=== PATIENT | male | born 1980 | race Caucasian/White ===

== ENCOUNTER 2022-07-15 14:38 | Inpatient (IN) | payer MEDICAID ==
--- NOTE | 2021-07-28 01:00 | NUR ---
PATIENT ASLEEP, NO DISTRESS NOTED
[~2022-07-15] VITALS: Ht 167.6 cm; Wt 70.3 kg
[2022-07-15 14:42] VITALS: BP 174/82
--- NOTE | 2022-07-15 14:51 | NUR ---
42/M WALKED IN C/O HEADACHE AND COUGH X 3DAYS. AFEBRILE AT TRIAGE, AAO4, AMBULATORY, VITALS STABLE. PMH: HTN, DM
--- NOTE | 2022-07-15 14:59 | NUR ---
PT SWABBED AND SENT TO LAB
[2022-07-15] MEDS ORDERED: KETOROLAC 60 MG/2 ML VIAL IM ONE (16:20)
[2022-07-15 16:54] LABS: BASOPHILS # (AUTO) 0.1 K/uL (0.00-0.22); BASOPHILS % (AUTO) 1.3 % (0.0-2.0); EOSINOPHILS # (AUTO) 0.3 K/uL (0-0.4); EOSINOPHILS % (AUTO) 4.8 % (0.0-4.0); HEMOGLOBIN 7.5 g/dL (12.0-18.0); LYMPHOCYTES # (AUTO) 0.8 K/uL (2.0-11.5); LYMPHOCYTES % (AUTO) 13.8 % (20.5-51.1); MEAN CORPUSCULAR HEMOGLOBIN 30 pg (27-31); MEAN CORPUSCULAR HGB CONC 34 g/dL (33-37); MEAN CORPUSCULAR VOLUME 86.3 fL (80-94); MONOCYTES # (AUTO) 0.3 K/uL (0.8-1.0); MONOCYTES % (AUTO) 5.6 % (1.7-9.3); NEUTROPHILS # (AUTO) 4.4 K/uL (1.8-7.7); NEUTROPHILS % (AUTO) 74.5 % (42.2-75.2); PLATELET COUNT (AUTO) 170 K/uL (140-450); RED BLOOD CELL COUNT(AUTO) 2.56 MIL/uL (4.20-6.10); RED CELL DISTRIBUTION WIDTH 14.6 % (11.6-13.7); WHITE BLOOD COUNT (AUTO) 5.9 K/uL (4.8-10.8)
[2022-07-15 17:18] LABS: ALBUMIN 3.7 g/dL (3.4-5.0); CARBON DIOXIDE 18.4 mmol/L (21-32); POTASSIUM 5.4 mmol/L (3.5-5.1); TOTAL BILIRUBIN 0.4 mg/dL (0.0-1.0)
[2022-07-15 17:31] LABS: CREATININE 16.1 mg/dL (0.6-1.3)
[2022-07-15] MEDS ORDERED: INSULIN REGULAR, HUMAN 100 UNIT/ML VIAL IVP ONE (17:45)
[2022-07-15] MEDS ORDERED: LACTATED RINGERS 1,000 ML IV ONE (17:45)
[2022-07-15] MEDS ORDERED: DEXTROSE 50% 50 ML SYR IVP ONE ×2 (17:45→19:59)
[2022-07-15] MEDS ORDERED: CALCIUM GLUC 1 GM/50 mL NS BAG 50 ML IV ONE ×2 (17:45→19:58)
--- NOTE | 2022-07-15 19:29 | NUR ---
PT AMBULATED TO BED, PLACED IN GOWN AND ON APPEALS NURSE
--- NOTE | 2022-07-15 19:29 | NUR ---
PT TO 2
--- NOTE | 2022-07-15 19:38 | NUR ---
Patient resting in bed, A/Ox4, chest rise and fall symmetrical, no c/o pain or s/s of discomfort.
[2022-07-15] MEDS ORDERED: NACL 0.9% 1,000 ML IV ONE (20:55)
--- NOTE | 2022-07-15 21:00 | NUR ---
Patient resting in bed, A/Ox4, chest rise and fall symmetrical, no c/o pain or s/s of discomfort.
[2022-07-15] MEDS ORDERED: PANTOPRAZOLE 40 MG INJ VIAL IVP ONE (21:35)
--- NOTE | 2022-07-15 23:05 | NUR ---
Patient resting in bed, A/Ox4, chest rise and fall symmetrical, no c/o pain or s/s of discomfort.
--- NOTE | 2022-07-16 01:15 | NUR ---
Patient resting in bed, A/Ox4, chest rise and fall symmetrical, no c/o pain or s/s of discomfort.
--- NOTE | 2022-07-16 03:00 | NUR ---
Patient resting in bed, A/Ox4, chest rise and fall symmetrical, no c/o pain or s/s of discomfort.
--- NOTE | 2022-07-16 04:52 | NUR ---
Patient resting in bed, A/Ox4, chest rise and fall symmetrical, no c/o pain or s/s of discomfort.
[2022-07-16] MEDS ORDERED: LOSA100T2 PO (05:31)
--- NOTE | 2022-07-16 06:30 | NUR ---
Patient resting in bed, A/Ox4, chest rise and fall symmetrical, no c/o pain or s/s of discomfort.
--- NOTE | 2022-07-16 07:28 | NUR ---
Change of shift report given to AM shift nurse Vivi RN. AM shift nurse Vivi RN verbalized understanding of report, no further questions.
--- NOTE | 2022-07-16 08:00 | NUR ---
PT IS RESTING ON STRETCH, CONTINUOUS CARDIAC MONITORING. PT. IS AAOX4, CALM AND COOPERATIVE, VERBALLY RESPONSIVE, AND SHOWS NO SIGNS OF ACUTE RESP DISTRESS.
--- NOTE | 2022-07-16 11:01 | NUR ---
PT IS RESTING ON STRETCH, CONTINUOUS CARDIAC MONITORING. PT. IS AAOX4, CALM AND COOPERATIVE, VERBALLY RESPONSIVE, AND SHOWS NO SIGNS OF ACUTE RESP DISTRESS.
--- NOTE | 2022-07-16 13:00 | NUR ---
PT IS EATING LUNCH AT THIS TIME
--- NOTE | 2022-07-16 15:34 | NUR ---
PATIENT HAS BEEN SCREENED AND CATEGORIZED MODERATE NUTRITION RISK. PATIENT WILL BE SEEN WITHIN 3-5 DAYS OF ADMISSION. REVIEWED BY LAURIE BARBOSA RD
--- NOTE | 2022-07-16 16:00 | NUR ---
PT IS RESTING ON STRETCH, CONTINUOUS CARDIAC MONITORING. PT. IS AAOX4, CALM AND COOPERATIVE, VERBALLY RESPONSIVE, AND SHOWS NO SIGNS OF ACUTE RESP DISTRESS.
[2022-07-16] MEDS ORDERED: ONDANSETRON 4 MG/2 ML VIAL IVP PRN (17:40)
[2022-07-16] MEDS ORDERED: NACL 0.9% 1,000 ML IV SCH (17:40)
[2022-07-16] MEDS ORDERED: MORPHINE SULFATE 2 MG/ML SYR IVP PRN (17:40)
--- NOTE | 2022-07-16 18:55 | NUR ---
REPORT GIVEN TO KENIA KINSEY FOR CONTINUITY OF CARE.
[2022-07-16 19:01] LABS: ALBUMIN 2.8 g/dL (3.4-5.0); ANION GAP 19.6 (8-16); CARBON DIOXIDE 17.7 mmol/L (21-32); POTASSIUM 5.3 mmol/L (3.5-5.1); TOTAL BILIRUBIN 0.3 mg/dL (0.0-1.0)
[2022-07-16 19:49] LABS: CREATININE 16.4 mg/dL (0.6-1.3)
--- NOTE | 2022-07-16 20:09 | NUR ---
PATIENT STABLE NOT COMPLAINING OF PAIN VITALS SIGNS IN NORMAL LIMITS DOCTOR INFORMED ABOUT CRITICALS LAB RESULTS CREATINE 16.1 BUN 151 EGFR 4L
--- NOTE | 2022-07-16 21:16 | NUR ---
PATIENT STABLE ALERT ORIENTED ADMITED TO ROOM 126 B REPORT AND ENDORSED OF CARE TO TAHIR AQUINO
--- NOTE | 2022-07-16 21:45 | NUR ---
[facility] C/C VOMITING AND NAUSEA WIT HEADACHE X4 DAYS. WALKED FROM [facility] TO BED.. DENIES DX. ACUTE RENAL FAILURE, HYPER KALEMIA, GI BLEED, N/V HEADACHE. POTASSIUM 5.3, BUN 151, CR 16.4. CHILEAN SPEAKING ONLY. A/OX4 SR. LUNGS CLEAR. VOIDED 250 YELLOW URINE N URINAL. RAC 20 GA. SKIN INTACT. REPORT RECEIVED FROM FRANK ALDRICH RN. CT HEAD NEG, CXR NEG.
[2022-07-16 22:15] VITALS: BP 168/96
[2022-07-17] VITALS (11 sets, daily range): BP systolic 132–182; BP diastolic 76–108
[2022-07-17] MEDS: LORazepam 2 MG/ML VIAL IVP PRN (01:25)
--- NOTE | 2022-07-17 01:25 | NUR ---
ATIVAN 2 MG PER IVP FOR RESTLESSNESS.
--- NOTE | 2022-07-17 02:10 | NUR ---
NS 125ML/H BEGAN AT AT 0000. PT AUDIBLY "WET" LUNG SOUNDS NOW C/O DIFF BREATHING. 02 2L/NC STARTED.SAT FROM 99%RA TO 89%. FLUIDS STOPPED AND MD NOTIFIED. FOR NEW ORDERS.
[2022-07-17] MEDS ORDERED: guaiFENesin 600 MG TABER PO ONE (02:28)
--- NOTE | 2022-07-17 02:28 | NUR ---
MUCINEX ER 600 MG GIVEN AND APRESOLINE 10 MG FOR B/P 180/108 HR 96. SAT 93% NOT HOLDING AND DIPPING TO 89 88%. PT REPOSITIONED UP IN BED AND NASAL CANNULA RE-ALIGNED. HAD SON INTERPRET VIA PHONE TO KEEP CANNULAS ALIGNED AND NOT TWISTED TO THE SIDE OF THE FACE MISSING ENTIRELY THE NASAL PASSAGE. STATED UNDERSTOOD.
[2022-07-17] MEDS: hydrALAZINE 20 MG/ML VIAL IVP PRN (02:56)
[2022-07-17 06:00] LABS: BASOPHILS % (AUTO) 0.3 % (0.0-2.0); EOSINOPHILS % (AUTO) 0.1 % (0.0-4.0); HEMATOCRIT 22.6 % (36-52); HEMOGLOBIN 7.8 g/dL (12.0-18.0); LYMPHOCYTES # (AUTO) 0.3 K/uL (2.0-11.5); LYMPHOCYTES % (AUTO) 2.9 % (20.5-51.1); MEAN CORPUSCULAR HEMOGLOBIN 30 pg (27-31); MEAN CORPUSCULAR HGB CONC 34 g/dL (33-37); MEAN CORPUSCULAR VOLUME 86.4 fL (80-94); MONOCYTES # (AUTO) 0.3 K/uL (0.8-1.0); MONOCYTES % (AUTO) 3.4 % (1.7-9.3); NEUTROPHILS # (AUTO) 9.1 K/uL (1.8-7.7); NEUTROPHILS % (AUTO) 93.3 % (42.2-75.2); PLATELET COUNT (AUTO) 156 K/uL (140-450); RED BLOOD CELL COUNT(AUTO) 2.61 MIL/uL (4.20-6.10); RED CELL DISTRIBUTION WIDTH 14.8 % (11.6-13.7); WHITE BLOOD COUNT (AUTO) 9.7 K/uL (4.8-10.8)
--- NOTE | 2022-07-17 06:20 | NUR ---
SEEN PT WITH O2 SAT OF 81% ON 4L NC NASAL CANNULA, PUT PT ON SIMPLE MASK 10L, SAT WENT UP TO 89-91%, CRACKLES LUNG SOUNDS, PUT ON HIGH FOWLERS POSITION, MESSAGED DR COMBS, AWAITING RESPONSE.
[2022-07-17 06:30] LABS: ANION GAP 21.9 (8-16); CARBON DIOXIDE 14.5 mmol/L (21-32); POTASSIUM 5.4 mmol/L (3.5-5.1)
[2022-07-17] MEDS ORDERED: CLONIDINE HYDROCHLORIDE 0.1 MG TAB PO SCH (06:35)
[2022-07-17] MEDS ORDERED: FUROSEMIDE 40 MG/4 ML VIAL IVP SCH (06:35)
[2022-07-17 06:45] LABS: CREATININE 15.5 mg/dL (0.6-1.3)
--- NOTE | 2022-07-17 07:30 | NUR ---
ENDORSED TO ON-COMING NURSE CHANGE OF CONDITION WITH NOTED RESP DISTRESS NOTED SHORTLY AFTER IV FLUIDS BEGAN. NEW ORDERS OBTAINED TO STOP FLUIDS AND BEGAN PRN MEDS TO CONTROL B/P AND INCREASE VENTILATION. LASIX 40 MG ON BOARD BY CHARGE NURSE BRYANNA AND CLONIDINE FOR HTN. CONT TO MONITOR AND ASSIST ACCORDINGLY.
[2022-07-17] MEDS ORDERED: DEXTROSE 50% 50 ML SYR IVP PRN (08:15)
[2022-07-17] MEDS ORDERED: SODIUM ZIRCONIUM CYCLOSILICATE 10 GM POWD.PACK PO SCH (09:00)
[2022-07-17] MEDS ORDERED: CALCIUM GLUC 1 GM/50 mL NS BAG 50 ML IV SCH (09:00)
[2022-07-17] MEDS ORDERED: SODIUM ZIRCONIUM CYCLOSILICATE 10 GM POWD.PACK PO ONE (09:25)
[2022-07-17] MEDS: hydrALAZINE 10 MG TAB PO SCH ×3 (09:46→17:00)
[2022-07-17] MEDS: amLODIPine 5 MG TAB PO SCH (09:46)
[2022-07-17] MEDS: guaiFENesin 600 MG TABER PO SCH ×2 (09:46→20:46)
--- NOTE | 2022-07-17 10:48 | NUR ---
ON OR ABOUT THIS TIME URBAN PLANNING TEACHER CALLED TO BEDSIDE BY SID/SUSIE TO ASSESS PATIENT; PATIENT PRESENTING WITH INCREASED WOB RR AT 36-40 BPM AUDIBLE COARSE CRACKLES BILATERAL SATURATION 78% ON ROOM AIR ACCORDING TO FOREMENTIONED HEAVY DUTY MECHANIC PATIENT SELF REMOVED ADULT MASK (10LPM) DUE TO BEING CLAUSTROPHOBIC INCREASED FIO2 TO 11 PLM WITH SATURATION ASCENDING TO 85%-87% PATIENT APPROPRIATE FOR HIGH FLOW NASAL CANNULA REPORTED FINDINGS TO JOSE/RN REQUESTED STAT CXR
[2022-07-17] MEDS: BLOOD GLUCOSE MONITORING 1 DEV DEV FS SCH ×3 (10:58→20:45)
[2022-07-17] MEDS: INSULIN LISPRO SLIDING SCALE 100 UNITS/ML VIAL SUBQ PRN (11:07)
--- NOTE | 2022-07-17 11:08 | NUR ---
ON OR ABOUT THIS TIME PLACED ON A VAPOTHERM HIGH FLOW NASAL CANNULA NOTED JOSE/RN NOTIFIED
--- NOTE | 2022-07-17 11:55 | NUR ---
DC PLANNING SEAN ATTEMPTED TO MEET WITH PT AT BEDSIDE TO COMPLETE ASSESSMENT, HOWEVER, PT WAS BEING TRANSFERRED TO ICU, THEREFORE SEAN GATHERED COLLATERAL INFORMATION FROM KAREEM, PT SON. PT RESIDES W/ HIS FAMILY ( , SON, DAUGHTER) IN A GROUND FLOOR APT AT THE ADDRESS LIMITED ON FILE. KAREEM IDENTIFIED HIMSELF, [phone] AND TATIANA MENDOZA, DAUGHTER [phone] PTS EMERGENCY CONTACTS. KAREEM REPORTS THAT PT'S SPEAKS LIMITED RUSSIAN AND PREFERS THAT HE AND OR SISTER ARE EMERGENCY CONTACTS THEY WILL RELAY ALL INFORMATION TO MOM. KAREEM REPORTS PT IS NONCOMPLIANT WITH MEDICATION HE TYPICALLY GET MEDICATION FROM [place], WHEN NEEDED HOWEVER, GOING TO [place] HAS BEEN DIFFICULT. KAREEM REPORTS PT AT BASELINE IS INDEPENDENT AND COMPLETES ALL ADL'S INDEPENDENTLY. PT IS REPORTED TO HAVE HX OF DIABETES THAT IS WELL MANAGED WITH INSULIN. SEAN EXPLAINED TO KAREEM THAT PT HAS BEEN REFERRED TO [facility] FOR PE INSURANCE. KAREEM REPORTS PT IS UNDOCUMENTED AND INQUIRED IF FATHER WILL STILL BE ELIGIBLE. SEAN ANSWERED KAREEM'S QUESTIONS AND REMINDED HIM THAT FOLLOWING UP WITH ALL REQUIREMENTS REQUESTED BY [facility] ARE EXTREMELY IMPORTANT. KAREEM VERBALIZED UNDERSTANDING. DC PLAN IS FOR PT TO RETURN HOME, WITH FAMILY PROVIDING TRANSPORTATION, WHEN MEDICALLY STABLE. Addendum: 07/18/22 at 1302 by Sybil Torres SS Amended: Links added. Addendum: 08/22/22 at 1703 by Sybil Torres SS NOTIFIED BY PT NURSE, FAMILY REQUESTING TO SPEAK TO SW. MET WITH FAMILY AT BEDSIDE AND ACTIVELY LISTENED TO FAMILY'S CONCERNS. SW ENDORSED TO CHARGE NURSE ALL OF FAMILY CONCERNS. NURSE TO NOTIFY PHYSICIAN THAT FAMILY IS REQUESTING CLINICAL UPDATE.
--- NOTE | 2022-07-17 12:11 | NUR ---
TRANSFER TO ICU REPORT AT BEDSIDE WITH CHARGE NURSE
--- NOTE | 2022-07-17 12:15 | NUR ---
RECEIVE PT. FROM TELE IN BED ADM TO ICU 5 PT. LOOK PALE , SOB RT AT BED SIDE, PT IS ON HIGH FLOW. SUN AT BED SIDE.
--- NOTE | 2022-07-17 12:22 | NUR ---
CALLED DR. MARITA JONES AT [facility] TO REVIEW ABG RESULTS AND PATIETN TRANSFER TO ICU KEIRA/EXCHANGE TO RORO HESTER MD PATIENT INFORMATION AND CALL BACK NUMBER GIVEN
--- NOTE | 2022-07-17 12:25 | NUR ---
CALL BACK FROM DR. MARITA JONES REVIEWED ABG RESULTS AND EVENTS (07/17 AT 1048;1148) LEADING TO ICU TRANSFER NO FURTHER RESPIRATORY ORDERS GIVEN PER MD REQUEST TRANSFERRED CALL TO ICU Addendum: 07/17/22 at 1312 by Sorin Parnell RT ALSO REVIEWED STAT CXR IMPRESSION 07/17/2022 1144
[2022-07-17] MEDS ORDERED: SODIUM BICARBONATE 8.4% 150 MEQ in DEXTROSE 5% 1,000 ML IV SCH (13:00)
--- NOTE | 2022-07-17 14:45 | NUR ---
DR COMBS WAS CALL PT [place] HAVE HARD TIME TO BREATH.SHE WILL CALL DR. CONCEPCION THE NEPHRO TO CONSULT.
--- NOTE | 2022-07-17 14:55 | NUR ---
AWARE WILL COME TO INSERT HEMODIALYSIS CATH. CONSRNT OBTAINED.
--- NOTE | 2022-07-17 17:45 | NUR ---
dr. ray inserted hemodialysis cath.
--- NOTE | 2022-07-17 18:10 | NUR ---
dr. ray saw chest x-ray film . it ok to use the hemodialysis cath.
--- NOTE | 2022-07-17 18:45 | NUR ---
[facility] CALLED AND LEAVED MASSAGE,
--- NOTE | 2022-07-17 19:20 | NUR ---
REPORT GIVE TO BRIGITTE AQUINO.
--- NOTE | 2022-07-17 20:00 | NUR ---
RECEIVED PATIENT AWAKE,ALERT AND ORIENTED.AFEBRILE.DENIES ANY PAIN AT THIS TIME.ON HI FLOW 40L 100^% FIO2.LUNG SOUNDS WITH CRACKLES THROUGHOUT.ABDOMEN BENIGN WITH+ BS X4 QUADS.PULSES PRESENT AND PALPBLE WITH EDEMA ON BOTH LOWER EXTREMITIES.WITH IVF OF D5W WITH 150MEQ OF SODIUM BICARB AT 50ML/HR.FOR DIALYSIS TONIGHT.WILL CONTINUE WITH CARE PLAN.
--- NOTE | 2022-07-17 22:30 | NUR ---
HEMODIALYSIS DONE ,2 LITERS OUT.
[2022-07-18] VITALS (20 sets, daily range): BP systolic 132–159; BP diastolic 70–91
[2022-07-18 06:05] LABS: ANION GAP 19.2 (8-16); CARBON DIOXIDE 24.1 mmol/L (21-32); POTASSIUM 4.3 mmol/L (3.5-5.1)
[2022-07-18 06:09] LABS: BASOPHILS % (AUTO) 0.2 % (0.0-2.0); LYMPHOCYTES # (AUTO) 0.3 K/uL (2.0-11.5); LYMPHOCYTES % (AUTO) 3.8 % (20.5-51.1); MEAN CORPUSCULAR HEMOGLOBIN 30 pg (27-31); MEAN CORPUSCULAR HGB CONC 35 g/dL (33-37); MEAN CORPUSCULAR VOLUME 84.7 fL (80-94); MONOCYTES # (AUTO) 0.1 K/uL (0.8-1.0); NEUTROPHILS # (AUTO) 6.5 K/uL (1.8-7.7); PLATELET COUNT (AUTO) 109 K/uL (140-450); RED BLOOD CELL COUNT(AUTO) 2.15 MIL/uL (4.20-6.10); RED CELL DISTRIBUTION WIDTH 14.5 % (11.6-13.7); WHITE BLOOD COUNT (AUTO) 6.9 K/uL (4.8-10.8)
[2022-07-18 06:15] LABS: HEMATOCRIT 18.2 % (36-52); HEMOGLOBIN 6.4 g/dL (12.0-18.0)
[2022-07-18 06:45] LABS: CREATININE 11.6 mg/dL (0.6-1.3)
--- NOTE | 2022-07-18 06:50 | NUR ---
DR COMBS WAS NOTIFIED OF THIS PATIENT'S H/H 6.4 /18.2. AND WITH ORDER TO TRANSFUSE 1 UNIT OF PRBC.
--- NOTE | 2022-07-18 07:00 | NUR ---
ENDORSED TO [facility] SHIFT RN FOR CONTINUITY OF CARE.
--- NOTE | 2022-07-18 07:45 | NUR ---
RECEIVED PT ON HIGH FLOW 40L 100%. PT USING BEDSIDE COMMODE AND PT TACHYPNEIC, SOB. SPO2 77%. SPOKE TO REGARDING PLACING PT ON BIPAP AND BREATHING TX.
--- NOTE | 2022-07-18 07:59 | NUR ---
PT SPO2 NOT INCREASING AND REMAINS TACHYPNEIC. PT PLACED ON BIPAP 12/6, R10 AND FIO2 100%. SPO2 NOW 92%. ON AUSCULTATION PT HAS RALES BILATERALLY. BIPAP PLUGGED INTO A RED OUTLET WITH ALARMS ON AND FUNCTIONING. NURSE AWARE OF PT STATUS.
[2022-07-18] MEDS: ALBUTEROL 0.083% 2.5 MG/3 ML NEBU INH SCH ×3 (08:18→19:12)
[2022-07-18] MEDS ORDERED: EPOETIN ALFA-EPBX 10,000 UNITS/ML VIAL SUBQ SCH (09:00)
[2022-07-18] MEDS: BLOOD GLUCOSE MONITORING 1 DEV DEV FS SCH ×4 (09:06→21:55)
[2022-07-18] MEDS: amLODIPine 5 MG TAB PO SCH (09:17)
[2022-07-18] MEDS: hydrALAZINE 10 MG TAB PO SCH ×3 (09:18→17:16)
--- NOTE | 2022-07-18 10:00 | NUR ---
DIALYSIS NURSE AT BEDSIDE STARTING DIALYSIS ON PT. PT. REMAINS ON BIPAP.
--- NOTE | 2022-07-18 10:35 | NUR ---
BIPAP SETTINGS ADJUSTED DUE TO LARGE VT NEW SETTINGS 10/5 AND FIO2 INCREASED TO 100% AT THIS TIME WHILE PT RECEIVED DIALYSIS DUE TO SPO2 91% ON FIO2 90%. WILL TITRATE POST DIALYSIS.
[2022-07-18] MEDS: guaiFENesin 600 MG TABER PO SCH ×2 (12:19→21:00)
--- NOTE | 2022-07-18 12:45 | NUR ---
DIALYSIS COMPLETED AND 2.5 LITERS TAKEN OFF OF PT. PT. SHOWS NO SIGNS OF ACUTE DISTRESS. PT. IS RESTING COMFORTABLE IN BED WITH BIPAP STILL APPLIED.
--- NOTE | 2022-07-18 14:15 | NUR ---
BLOOD TRANSFUSION STARTED AT THIS TIME AFTER VITALS AND RN VERIFIED CROSSCHECK. WILL REASSESS IN 15 MIN.
[2022-07-18] MEDS: ALBUTEROL 0.083% 2.5 MG/3 ML NEBU INH PRN (14:17)
--- NOTE | 2022-07-18 14:26 | NUR ---
PT BACK ON HIGH FLOW AT THIS TIME,40 L 100% TOLERATING WELL. PRN BREATHING TX ADMINISTERED IMPROVED BREATH SOUNDS POST DIALYSIS.
--- NOTE | 2022-07-18 15:05 | NUR ---
PT PLACED BACK ON BIPAP DUE TO LOW SPO2 ON HIGH FLOW AND SOB. BIPAP SETTINGS 10/5,R10, FIO2 90%. ALARMS ON AND FUNCTIONING. NURSE AWARE.
--- NOTE | 2022-07-18 15:58 | NUR ---
PT IS RESTING IN BED STABLE WITH SON AT THE BEDSIDE. PT. IS CONTINUES TO BE ON BIPAP MACHINE.
--- NOTE | 2022-07-18 16:51 | NUR ---
07/18/22 RD INITIAL ASSESSMENT COMPLETED PLEASE REFER TO NUTRITION ASSESSMENT UNDER CARE ACTIVITY FOR ESTIMATED NUTRITIONAL NEEDS. 1. RECOMMEND CCHO 60 GRAM RENAL DIET 2. MONITOR PO INTAKE, GI, AND LAB VALUES. 3. RD TO FOLLOW-UP 3-5 DAYS, MODERATE RISK REVIEWED BY LAURIE BARBOSA RD
--- NOTE | 2022-07-18 17:15 | NUR ---
BLOOD TRANSFUSION COMPLETED WITH NO SIGNS OF REACTION. PAPERWORK COMPLETED AND PUT IN THE CHART. PT. IS RESTING IN BED, AAOX4, CALM AND COOPERATIVE, AND SHOWS NO SIGNS OF ACUTE RESP DISTRESS. IS AT BEDSIDE
[2022-07-18] MEDS: TAZOBACTAM IV SCH ×2 (17:17→23:54)
[2022-07-18] MEDS: PIPERACILLIN IV SCH ×2 (17:17→23:54)
[2022-07-18] MEDS: DEXTROSE 5% IV SCH ×2 (17:17→23:54)
--- NOTE | 2022-07-18 19:20 | NUR ---
REPORT GIVEN TO KENIA DELGADILLO, FOR CONTINUITY OF CARE.
--- NOTE | 2022-07-18 19:37 | NUR ---
PT REPORT GIVEN TO DIDIER, CHARGE NURSE FOR CONTINUITY OF CARE
--- NOTE | 2022-07-18 19:40 | NUR ---
RECEIVED PT. FROM DAY SHIFT RNLI. PT. WIDE AWAKE, ALERT AND ORIENTED, WITH THE FAMILY AT THE BEDSIDE. BILATERAL LUNGS SOUNDS CRACKLES. PT. BIPAP RATE 10, I-10, E-5, FIO2 80%, O2 SAT 89%. SINUS RHYTHM ON THE MONITOR. IV TO RIGHT AC 18G, NO S/S OF INFILTRATION, CAPPED AND FLUSHED. WITH RIGHT JUGULAR ZAIRA CATHETER. HAD HEMODIALYSIS TODAY IN THE DAY SHIFT WITH 2.5L OUTPUT. HAD A 1 UNIT BLOOD TRANSFUSION TODAY AT 1415 PER MD ORDERED, DUE TO HGB 6.4. ON RENAL DIET, HOWEVER PT.REFUSED TO EAT. REPOSITIONED. PROVIDED SAFE AND QUIET ENVIRONMENT. NO S/S OF PAIN. MAKE ALL NEEDS KNOWN. WILL CONT. TO MONITOR.
--- NOTE | 2022-07-18 21:00 | NUR ---
PT. HAS A SCHEDULE FOR PO MUCINEX ER 600 MG, HOWEVER, NOT GIVEN. PT. ON BIPAP WITH 02 SAT 89% AND WEAK TO SWALLOW AT THIS TIME.
[2022-07-19] VITALS (21 sets, daily range): BP systolic 122–161; BP diastolic 70–95
[2022-07-19] MEDS: ALBUTEROL 0.083% 2.5 MG/3 ML NEBU INH SCH ×4 (01:11→19:11)
--- NOTE | 2022-07-19 01:34 | NUR ---
PT. KAREEM ESPINO JR. CALLED AND I PROVIDED UPDATE. NO FURTHER QUESTIONS ASKED.
--- NOTE | 2022-07-19 04:09 | NUR ---
LAB CAME AND DRAWN BLOOD.
[2022-07-19 05:32] LABS: BASOPHILS % (AUTO) 0.1 % (0.0-2.0); HEMATOCRIT 20.1 % (36-52); LYMPHOCYTES # (AUTO) 0.2 K/uL (2.0-11.5); LYMPHOCYTES % (AUTO) 1.6 % (20.5-51.1); MEAN CORPUSCULAR HEMOGLOBIN 29 pg (27-31); MEAN CORPUSCULAR HGB CONC 34 g/dL (33-37); MONOCYTES # (AUTO) 0.2 K/uL (0.8-1.0); MONOCYTES % (AUTO) 2.5 % (1.7-9.3); NEUTROPHILS % (AUTO) 95.8 % (42.2-75.2); PLATELET COUNT (AUTO) 103 K/uL (140-450); RED BLOOD CELL COUNT(AUTO) 2.36 MIL/uL (4.20-6.10); RED CELL DISTRIBUTION WIDTH 15.3 % (11.6-13.7); WHITE BLOOD COUNT (AUTO) 9.4 K/uL (4.8-10.8)
[2022-07-19 05:51] LABS: HEMOGLOBIN 6.9 g/dL (12.0-18.0)
[2022-07-19 06:01] LABS: ANION GAP 19.1 (8-16); CARBON DIOXIDE 23.4 mmol/L (21-32); POTASSIUM 4.5 mmol/L (3.5-5.1)
[2022-07-19 06:17] LABS: CREATININE 9.1 mg/dL (0.6-1.3)
--- NOTE | 2022-07-19 06:31 | NUR ---
SENT MESSAGE TO DR. COMBS THAT THE HGB 6.9, HCT 20.1, BUN 87, CREATININE 9.1.WILL WAIT FOR HIS ORDERS.WILL ENDORSE TO THE NEXT SHIFT.
--- NOTE | 2022-07-19 06:39 | NUR ---
DR. COMBS ORDERED TO TRANSFUSE 1 PRBC.
[2022-07-19] MEDS: PIPERACILLIN IV SCH (06:50)
[2022-07-19] MEDS: DEXTROSE 5% IV SCH (06:50)
[2022-07-19] MEDS: TAZOBACTAM IV SCH (06:50)
[2022-07-19] MEDS: BLOOD GLUCOSE MONITORING 1 DEV DEV FS SCH ×4 (06:51→20:41)
--- NOTE | 2022-07-19 07:10 | NUR ---
Received pt Icelandic speaking, alert and oriented x3. On bipap 05/30 rate 10 FiO2@75%. Sinus rhythm on monitor. Abd soft with active bowel sounds. Pt continent bowel and bladder. Mayco cath on right IJ intact. Peripheral IV 18 gauge on right forearm intact and saline locked. Safety precautions in place.
--- NOTE | 2022-07-19 07:36 | NUR ---
REPORT GIVEN TO DAY SHIFT KENIA FLORES FOR CONTINUITY OF CARE.
--- NOTE | 2022-07-19 07:45 | NUR ---
Dr. Burgos at bedside examining patient.
--- NOTE | 2022-07-19 07:54 | NUR ---
ROUTINE ABG COMPLETED FOR CURRENT BIPAP SETTINGS
--- NOTE | 2022-07-19 07:58 | NUR ---
RECEIVED ON A [employer] V60 BIPAP (AGILITI #9447) PLUGGED INTO RED OUTLET TOLERATING WELL WITHOUT ADVERSE REACTIONS NOTED TO A MEDIUM FACIAL MASK SECURED WITH HEAD STRAP EQUAL CHEST RISE
--- NOTE | 2022-07-19 07:59 | NUR ---
Dr. Dye at bedside examining patient. Reported BUN and creatinine levels. New order for HD today.
--- NOTE | 2022-07-19 08:05 | NUR ---
REMOVED FROM BIPAP TO MASK FOR BREAKFAST MEAL PLACED ON A VAPOTHERM HIGH FLOW NASAL MASK PLUGGED INTO RED OUTLET TOLERATING WELL MARK/RN AWARE
[2022-07-19] MEDS: hydrALAZINE 10 MG TAB PO SCH ×4 (08:10→18:01)
[2022-07-19] MEDS: ACETAMINOPHEN 325 MG TAB PO PRN ×2 (08:10→15:30)
[2022-07-19] MEDS: amLODIPine 5 MG TAB PO SCH (08:11)
[2022-07-19] MEDS: guaiFENesin 600 MG TABER PO SCH ×2 (08:19→20:47)
--- NOTE | 2022-07-19 09:03 | NUR ---
POST BREAKFAST MEAL WITH DESCENDING SATURATION TO 88%-89%; PLACED BACK ON VAPOTHERM HIGH FLOW NASAL CANNULA NOTED; BOREMATIC OPERATOR TO REASSESS POST HEMODIALYSIS IF PATIENT WILL BE APPROPRIATE FOR HIGH FLOW NASAL CANNULA
--- NOTE | 2022-07-19 10:34 | NUR ---
Pt had small loose black stool. Reported stool color to Dr. Burgos. New order for GI consult.
[2022-07-19] MEDS: PIPERACILLIN/TAZOBACTAM 2.25 GM in DEXTROSE 5% 50 ML IV SCH ×2 (11:07→18:01)
[2022-07-19] MEDS: INSULIN LISPRO SLIDING SCALE 100 UNITS/ML VIAL SUBQ PRN (11:16)
--- NOTE | 2022-07-19 11:45 | NUR ---
STABLE GOOD CHEST RISE; CHANGED BIPAP AGILITI #1645 (RENTAL) TO IN HOUSE BIPAP NOTED
[2022-07-19] MEDS ORDERED: PIPERACILLIN/TAZOBACTAM 2.25 GM in DEXTROSE 5% 50 ML IV SCH (12:00)
--- NOTE | 2022-07-19 12:11 | NUR ---
Hemodialysis done at bedside. Pt currently on high flow nasal cannula 40L FiO2@100% and eating lunch.
--- NOTE | 2022-07-19 12:50 | NUR ---
Dr. Watters at bedside examining patient. New order received for CXR.
--- NOTE | 2022-07-19 13:00 | NUR ---
Blood transfusion double verified and started infusing. VSS. Addendum: 07/19/22 at 1840 by Sera Grenefield RN Time 1250. Blood infusing via hemodialysis.
--- NOTE | 2022-07-19 13:30 | NUR ---
Dr. Tapia called and spoke with patient regarding EGD for tomorrow morning. New orders received. Pt to be NPO at midnight.
--- NOTE | 2022-07-19 13:45 | NUR ---
Blood transfusion completed. No adverse reactions noted.
--- NOTE | 2022-07-19 13:54 | NUR ---
HEMODIALYSIS IN PROGRESS; STABLE ON HIGH FLOW NASAL CANNULA AT THIS TIME
--- NOTE | 2022-07-19 14:16 | NUR ---
DC PLANNING: PER DR CARLENE WEEMS OUTSOLE TACKER ORDER TO SET UP OUT PATIENT DIALYSIS WITH [facility] FAXED THE PAPERWORK TO [phone]. PER ENVIRONMENTAL SCIENCES PROFESSOR OUT PATIENT DIALYSIS SET UP ON AT 2 PM . CM TO FOLLOW Addendum: 07/21/22 at 1441 by Viviana Gaffney RN DC PLANNING: PATIENT IN ON HF O2 40L/NC FIO2 55% . CONTINUE IV ABX VANCOMYCIN AND ZOSYN . CONTINUED HEMODIALYSIS. OUT PATIENT DIALYSIS SET UP WITH [facility] 2PM. DC PLAN TO GO HOME WHEN STABLE CM TO FOLLOW Addendum: 08/01/22 at 1621 by Viviana Gaffney RN DC PLANNING: PATIENT HAS AN ORDER FOR HLOC FOR CARDIOTHORACIC SURGEON FAXED TO RHEA HUMPHREYS, [facility] AND [facility]. CM TO FOLLOW Addendum: 08/04/22 at 1711 by Viviana Gaffney RN DC PLANING: CALLED [facility] [phone] SPOKE WITH GRAY REGARDING THE OUT PATIENT INSERTION OF TUNNEL CATH. FAXED ALL THE PAPERWORK AFTER REVIEWING, GRAY STATED DON'T TAKE PT'S INSURANCE. NOTIFIED DR CANELA. Addendum: 08/18/22 at 1811 by Viviana Gaffney RN DC PLANNING: TUNNEL CATH WAS ARRANGED AT 2PM BY DR HERNANDEZ,PER PRIMARY NURSE DANITA PT'S BP WAS HIGH AND NEPHROLOGY DR VELASQUEZ ORDERED DIALYSIS TO BE DONE AND DR HERNANDEZ UNABLE TO PERFORM THE TUNNEL CATH PROCEDURE AND CANCELED IT. DC PLAN AWAITING FOR TUNNEL CATH TO BE INSERTED. CM TO FOLLOW Addendum: 08/22/22 at 1554 by Viviana Gaffney RN DC PLANNING: S/P TUNNEL CATH PLACEMENT BY IR POSSIBLE DC TOMORROW. CALLED [facility] OUT PATIENT DIALYSIS CHAIR TIME M-W-F AT 2 PM FAXED ALL PAPER WORKER .CM TO FOLLOW
--- NOTE | 2022-07-19 15:31 | NUR ---
Received report from hemodialysis nurse that pt c/o chills. Current oral temp 99.3. No c/o itching, pain, or shortness of breath. Dr. Burgos notified with new order for benadryl. Tylenol administered. Walked blood back to blood bank. Per quality assurance/r&d lab technician, antibody screen is negative. No further orders from Dr. Burgos. Blood disposed in biohazard bin.
--- NOTE | 2022-07-19 15:35 | NUR ---
Hemodialysis completed. 2530ml removed.
--- NOTE | 2022-07-19 18:01 | NUR ---
CXR done at bedside.
[2022-07-19 18:52] LABS: BASOPHILS % (AUTO) 0.3 % (0.0-2.0); EOSINOPHILS # (AUTO) 0.1 K/uL (0-0.4); EOSINOPHILS % (AUTO) 0.6 % (0.0-4.0); HEMATOCRIT 23.4 % (36-52); HEMOGLOBIN 8.2 g/dL (12.0-18.0); LYMPHOCYTES # (AUTO) 0.3 K/uL (2.0-11.5); LYMPHOCYTES % (AUTO) 2.9 % (20.5-51.1); MEAN CORPUSCULAR HEMOGLOBIN 29 pg (27-31); MEAN CORPUSCULAR HGB CONC 35 g/dL (33-37); MEAN CORPUSCULAR VOLUME 84.2 fL (80-94); MONOCYTES # (AUTO) 0.2 K/uL (0.8-1.0); MONOCYTES % (AUTO) 2.2 % (1.7-9.3); NEUTROPHILS # (AUTO) 8.5 K/uL (1.8-7.7); PLATELET COUNT (AUTO) 100 K/uL (140-450); RED BLOOD CELL COUNT(AUTO) 2.78 MIL/uL (4.20-6.10); RED CELL DISTRIBUTION WIDTH 14.9 % (11.6-13.7); WHITE BLOOD COUNT (AUTO) 9.1 K/uL (4.8-10.8)
--- NOTE | 2022-07-19 19:19 | NUR ---
Endorsed to shift mechanic nurse Kiera for continuity of care and endorsed for NPO at midnight. Occult blood pending for collection.
[2022-07-20] VITALS (17 sets, daily range): BP systolic 105–163; BP diastolic 47–96
[2022-07-20] MEDS: ALBUTEROL 0.083% 2.5 MG/3 ML NEBU INH SCH ×4 (01:22→18:59)
[2022-07-20] MEDS: PIPERACILLIN/TAZOBACTAM 2.25 GM in DEXTROSE 5% 50 ML IV SCH ×5 (05:14→17:17)
[2022-07-20 05:31] LABS: BASOPHILS % (AUTO) 0.2 % (0.0-2.0); EOSINOPHILS % (AUTO) 0.2 % (0.0-4.0); HEMATOCRIT 24.2 % (36-52); HEMOGLOBIN 8.2 g/dL (12.0-18.0); LYMPHOCYTES # (AUTO) 0.2 K/uL (2.0-11.5); LYMPHOCYTES % (AUTO) 1.5 % (20.5-51.1); MEAN CORPUSCULAR HEMOGLOBIN 29 pg (27-31); MEAN CORPUSCULAR HGB CONC 34 g/dL (33-37); MEAN CORPUSCULAR VOLUME 85.2 fL (80-94); MONOCYTES # (AUTO) 0.3 K/uL (0.8-1.0); MONOCYTES % (AUTO) 2.7 % (1.7-9.3); NEUTROPHILS # (AUTO) 11.7 K/uL (1.8-7.7); NEUTROPHILS % (AUTO) 95.4 % (42.2-75.2); PLATELET COUNT (AUTO) 104 K/uL (140-450); RED BLOOD CELL COUNT(AUTO) 2.84 MIL/uL (4.20-6.10); RED CELL DISTRIBUTION WIDTH 15.1 % (11.6-13.7); WHITE BLOOD COUNT (AUTO) 12.3 K/uL (4.8-10.8)
[2022-07-20 06:03] LABS: CARBON DIOXIDE 27.1 mmol/L (21-32); CREATININE 6.4 mg/dL (0.6-1.3); POTASSIUM 4.1 mmol/L (3.5-5.1)
[2022-07-20] MEDS ORDERED: VANCOMYCIN PER PHARMACY MC PRN (06:45)
[2022-07-20] MEDS ORDERED: VANCOMYCIN 1GM/DEXT 5% PREMIX 200 ML IV SCH (06:55)
--- NOTE | 2022-07-20 07:00 | NUR ---
RECEIVED PT ON ST/BIPAP 03/29. RR10,60%. PT SATURATION 100%, RESTING COMFORTABLY, NO DISTRESS NOTED.
[2022-07-20] MEDS: BLOOD GLUCOSE MONITORING 1 DEV DEV FS SCH ×4 (07:18→21:00)
--- NOTE | 2022-07-20 07:27 | NUR ---
Received pt from oxyacetylene cutter nurse Kiera. Pt in bed with eyes closed, easily aroused to name. Breathing even and unlabored on bipap. Settings 10/5 rate 10 FiO2@60%. Sinus rhythm on monitor. Abd soft with no c/o pain. Continent bowel and bladder. Peripheral IV on right forearm 18 gauge intact and patent infusing NS@TKO. Mayco cath on right IJ intact. Pt remains NPO for EGD this AM.
--- NOTE | 2022-07-20 07:50 | NUR ---
Seen and examined by Dr. Burgos. New order received for echo. Reported fever and elevated WBC. Blood culture done at bedside. Cooling measures in place.
[2022-07-20] MEDS ORDERED: VANCOMYCIN 1,000 MG in DEXTROSE 5% 250 ML IV SCH (08:00)
[2022-07-20] MEDS: PANTOPRAZOLE 40 MG INJ VIAL IVP SCH (08:15)
[2022-07-20] MEDS: amLODIPine 5 MG TAB PO SCH (08:20)
[2022-07-20] MEDS: ACETAMINOPHEN 325 MG TAB PO PRN ×2 (08:20→20:50)
[2022-07-20] MEDS: hydrALAZINE 10 MG TAB PO SCH ×3 (08:20→16:20)
--- NOTE | 2022-07-20 08:20 | NUR ---
Dr. Dye at bedside examining patient. No hemodialysis today since patient had HD 3 days straight. For hemodialysis tomorrow. Addendum: 07/20/22 at 1049 by Sera Greenfield RN Reported creatinine level and levels trending down.
[2022-07-20] MEDS: guaiFENesin 600 MG TABER PO SCH ×2 (08:21→20:18)
--- NOTE | 2022-07-20 08:25 | NUR ---
Spoke to Dr. Wells regarding elevated temp and updated pt status. New order for urine culture.
[2022-07-20] MEDS: NIFEdipine 30 MG TABER PO SCH (08:38)
--- NOTE | 2022-07-20 09:25 | NUR ---
PT CURRENTLY ON HFNC. 100%,40L,33 DEGREE. PT SATURATION 100%. NO DISTRESS NOTED. WILL CONTINUE TO MONITOR.
--- NOTE | 2022-07-20 10:29 | NUR ---
Echocardiogram done at bedside.
--- NOTE | 2022-07-20 11:45 | NUR ---
Pt picked up by OR nurse for tunneled hemodialysis permacatheter placement. Placed pt on mobile monitor. VSS. RT at bedside and placed pt on nonrebreathing mask. Belongings given to at bedside.
--- NOTE | 2022-07-20 12:15 | NUR ---
Meds Heparin 5000 units, Xylocaine Mpf 1%, Sensorcaine Mpf, and Versed 5m/ml not given in ICU. Pt in surgery.
[2022-07-20] MEDS ORDERED: PROPOFOL 200 MG/20 ML VIAL IV ONE (12:30)
[2022-07-20] MEDS ORDERED: LIDOCAINE MPF 1% 10 ML ONE (12:33)
[2022-07-20] MEDS ORDERED: BUPIVACAINE MPF 0.25% 10 ML VIAL INJ ONE ×2 (12:33→12:34)
[2022-07-20] MEDS ORDERED: MIDAZOLAM 5 MG/5 ML VIAL ONE (12:41)
--- NOTE | 2022-07-20 13:18 | NUR ---
TREATMENT NOT GIVEN DUE TO PT IN SURGERY.
--- NOTE | 2022-07-20 13:23 | NUR ---
Pt returned from EGD surgery and tunneled HD permacath placement surgery in stable condition. RT called to bedside. Pt on high flow nasal cannula. Addendum: 07/20/22 at 1457 by Sera Greenfield RN 1323: Pt with tunneled HD permacatheter seen on right upper chest.
--- NOTE | 2022-07-20 13:25 | NUR ---
PT RETURNED FROM SURGERY. CURRENTLY ON HFNC 40L,90%,33 DEGREES. PT SATURATION 98%. RR 16. NO DISTRESS NOTED. WILL CONTINUE TO MONITOR.
--- NOTE | 2022-07-20 13:38 | NUR ---
CXR done at bedside.
[2022-07-20 15:06] LABS: HEPATITIS A ANTIBODY IGM Negative (Negative); HEPATITIS B CORE AB TOTAL Negative (Negative); HEPATITIS B SURFACE ANTIBODY Non Reactive (.); HEPATITIS B SURFACE ANTIGEN Negative (Negative)
[2022-07-20] MEDS: INSULIN LISPRO SLIDING SCALE 100 UNITS/ML VIAL SUBQ PRN (16:26)
[2022-07-20] MEDS: LORazepam 2 MG/ML VIAL IVP PRN (17:55)
--- NOTE | 2022-07-20 19:15 | NUR ---
Received report from FEDERICO Zamora CLINICAL INFORMATION SYSTEMS DIRECTOR. Questions answered. Initial Assessment done. Please see Flowsheet.
--- NOTE | 2022-07-20 19:25 | NUR ---
Endorsed to second shift supervisor nurse Margarita for continuity of care.
--- NOTE | 2022-07-20 21:00 | NUR ---
Due medications given. Tolerated well. Will continue monitoring for any possible adverse reactions. BS= 140mg/dl NO Coverage needed.
[2022-07-21] VITALS (19 sets, daily range): BP systolic 107–148; BP diastolic 47–84
[2022-07-21] MEDS: ALBUTEROL 0.083% 2.5 MG/3 ML NEBU INH SCH ×4 (00:37→20:13)
--- NOTE | 2022-07-21 00:43 | NUR ---
SPO2 99%. TITRATED FiO2 FROM 75% TO 65%. PT TOLERATING WELL AT THIS TIME. RN NOTIFIED. WILL CONTINUE TO MONITOR PT.
--- NOTE | 2022-07-21 04:36 | NUR ---
SPO2 98%. TITRATED FiO2 FROM 65% TO 60%. SPO2 94%. PT TOLERATING WELL AT THIS TIME. RN NOTIFIED. WILL CONTINUE TO MONITOR PT.
[2022-07-21 05:31] LABS: BASOPHILS % (AUTO) 0.2 % (0.0-2.0); EOSINOPHILS # (AUTO) 0.2 K/uL (0-0.4); EOSINOPHILS % (AUTO) 1.9 % (0.0-4.0); HEMATOCRIT 24.5 % (36-52); HEMOGLOBIN 8.4 g/dL (12.0-18.0); LYMPHOCYTES # (AUTO) 0.3 K/uL (2.0-11.5); LYMPHOCYTES % (AUTO) 3.3 % (20.5-51.1); MEAN CORPUSCULAR HEMOGLOBIN 29 pg (27-31); MEAN CORPUSCULAR HGB CONC 34 g/dL (33-37); MEAN CORPUSCULAR VOLUME 85.1 fL (80-94); MONOCYTES # (AUTO) 0.3 K/uL (0.8-1.0); MONOCYTES % (AUTO) 3.2 % (1.7-9.3); NEUTROPHILS # (AUTO) 7.7 K/uL (1.8-7.7); NEUTROPHILS % (AUTO) 91.4 % (42.2-75.2); PLATELET COUNT (AUTO) 100 K/uL (140-450); RED BLOOD CELL COUNT(AUTO) 2.88 MIL/uL (4.20-6.10); RED CELL DISTRIBUTION WIDTH 14.8 % (11.6-13.7); WHITE BLOOD COUNT (AUTO) 8.4 K/uL (4.8-10.8)
[2022-07-21] MEDS: PIPERACILLIN/TAZOBACTAM 2.25 GM in DEXTROSE 5% 50 ML IV SCH ×7 (05:48→23:53)
[2022-07-21 05:59] LABS: ANION GAP 21.5 (8-16); CARBON DIOXIDE 24.6 mmol/L (21-32); POTASSIUM 4.1 mmol/L (3.5-5.1)
[2022-07-21 06:18] LABS: CREATININE 7.8 mg/dL (0.6-1.3)
--- NOTE | 2022-07-21 07:00 | NUR ---
RECEIVED PT ON HFNC 40L, 60%, 33 DEGREES. SATURATION WAS 99%. TITRATED FIO2 TO 55%. BREATH SOUNDS WERE COARSE, SLIGHT WHEEZE. PT RESTING COMFORTABLY. WILL CONTINUE TO MONITOR.
--- NOTE | 2022-07-21 07:22 | NUR ---
SBAR REPORT RECEIVED FROM INDU AQUINO, ALL CARES ASSUMED. PT RESTING IN BED WITH EYES OPEN. PT ON HIGH FLOW NASAL CANNULA 40L 55%. BED IN LOW AND LOCKED POSITION. CALL LIGHT WITHIN REACH.
[2022-07-21] MEDS: BLOOD GLUCOSE MONITORING 1 DEV DEV FS SCH ×4 (07:47→22:00)
[2022-07-21] MEDS: guaiFENesin 600 MG TABER PO SCH ×2 (08:04→21:00)
[2022-07-21] MEDS: amLODIPine 5 MG TAB PO SCH (08:05)
[2022-07-21] MEDS: hydrALAZINE 10 MG TAB PO SCH ×3 (08:05→17:34)
[2022-07-21] MEDS: NIFEdipine 30 MG TABER PO SCH (08:05)
[2022-07-21] MEDS: PANTOPRAZOLE 40 MG INJ VIAL IVP SCH (08:05)
[2022-07-21] MEDS: INSULIN LISPRO SLIDING SCALE 100 UNITS/ML VIAL SUBQ PRN ×2 (11:41→22:00)
--- NOTE | 2022-07-21 13:00 | NUR ---
BREATHING TREATMENT NOT GIVEN DUE TO PT RECEIVING DIALYSIS.
--- NOTE | 2022-07-21 15:19 | NUR ---
07/21/22 RD FOLLOW UP COMPLETED PLEASE REFER TO NUTRITION ASSESSMENT UNDER CARE ACTIVITY FOR ESTIMATED NUTRITIONAL NEEDS. 1. RECOMMEND ADDING CCHO 60 GRAM TO RENAL DIET 2. RECOMMEND NEPRO BID FOR LOW PO INTAKE=10% @BREAKFAST, 50% @ LUNCH ON 07/21/2022. 3. MONITOR GI, LAB VALUES, AND PO INTAKE. 4. RD TO FOLLOW-UP 2-3 DAYS, HIGH RISK REVIEWED BY LAURIE BARBOSA RD
[2022-07-21] MEDS ORDERED: VANCOMYCIN 750 MG in DEXTROSE 5% 250 ML IV SCH (18:00)
--- NOTE | 2022-07-21 18:15 | NUR ---
SBAR REPORT GIVEN TO TAIWO AQUINO, ALL CARES ENDORSED.
--- NOTE | 2022-07-21 19:21 | NUR ---
ENDORSEMENT OF PATIENT WAS GIVEN BY NAT AQUINO, PATIENT WAS STABLE DURING SHIFT REPORT. PATIENT WAS ABLE TO ACKNOWLEDGE HIS NAME WHY HE WAS IN THE HOSPITAL AND AO X 4. PATIENT IS A GREEK SPEAKER. PATIENT IS ON A RENAL CCHO DIET WITH FLUID MONITORING. PATIENT IS ON HIGH FLOW 40 LITER SATURATION IS AT 97%. DENIES ANY PAIN OR DISCOMFORT AT THIS TIME. BREATHING WITHOUT DISTRESS. SIDE RAILS UP X 2 SAFETY AND ADJUSTMENT. PATIENT IS ABLE TO USE THE CALL LIGHT WITHOUT INCIDENT. [email or web address]
[2022-07-22] VITALS: BP 92/58
--- NOTE | 2022-07-22 00:15 | NUR ---
NO NOTED S/S OR RESPIRATORY DISTRESS. PATIENT REMAINS CLEAN AND DRY AT THIS TIME. PATIENT WAS COOPERATIVE DURING MIDNIGHT VITAL SIGNS. NURSING REPLACED PATIENT OXYGEN FINGER MONITOR DUE IT WAS NOT REPORTING HIS SATURATION. NURSING USED HER OWN PULSE OX. CALL LIGHT WITH IN REACH. SIDE RAILS UP X 2. [email or web address]
[2022-07-22] MEDS: ALBUTEROL 0.083% 2.5 MG/3 ML NEBU INH SCH ×4 (01:35→19:00)
[2022-07-22 04:00] VITALS: BP 119/67
[2022-07-22] MEDS: ACETAMINOPHEN 325 MG TAB PO PRN ×2 (04:00→15:52)
--- NOTE | 2022-07-22 04:00 | NUR ---
PATIENT WAS RUNNING MILD FEVER AND MINOR PAIN, WAS GIVEN TYLENOL. PATIENT WAS ABLE TO GO BACK TO SLEEP. NURSING GAVE A CUP OF ICE WATER. PATIENT DENIES RESPIRATORY DISTRESS. KEEP CLEAN AND DRY. [email or web address]
--- NOTE | 2022-07-22 05:27 | NUR ---
NO NOTED SIDE EFFECTS FROM MEDICATION NOTED. [email or web address]
[2022-07-22] MEDS: PIPERACILLIN/TAZOBACTAM 2.25 GM in DEXTROSE 5% 50 ML IV SCH ×4 (06:09→23:19)
[2022-07-22] MEDS: BLOOD GLUCOSE MONITORING 1 DEV DEV FS SCH ×4 (06:58→22:00)
[2022-07-22] MEDS: INSULIN LISPRO SLIDING SCALE 100 UNITS/ML VIAL SUBQ PRN ×3 (06:59→22:22)
--- NOTE | 2022-07-22 07:07 | NUR ---
ENDORSED PATIENT TO LALY AQUINO, PATIENT WAS STABLE DURING SHIFT CHANGE. [email or web address] Addendum: 07/22/22 at 0714 by Eli Serna LVN WRONG NURSE. [email or web address]
--- NOTE | 2022-07-22 07:13 | NUR ---
ENDORSED PATIENT TO CHARMAINE RN, PATIENT WAS STABLE DURING SHIFT CHANGE. [email or web address]
--- NOTE | 2022-07-22 07:15 | NUR ---
RECEIVED REPORT FROM PHOTO TECH NURSE FOR CONTINUITY OF CARE. PTS STABLE AT THIS TIME.
[2022-07-22 08:00] VITALS: BP 143/68
[2022-07-22 08:16] LABS: BASOPHILS % (AUTO) 0.4 % (0.0-2.0); EOSINOPHILS # (AUTO) 0.1 K/uL (0-0.4); EOSINOPHILS % (AUTO) 1.2 % (0.0-4.0); HEMATOCRIT 21.4 % (36-52); HEMOGLOBIN 7.2 g/dL (12.0-18.0); LYMPHOCYTES # (AUTO) 0.2 K/uL (2.0-11.5); MEAN CORPUSCULAR HEMOGLOBIN 29 pg (27-31); MEAN CORPUSCULAR HGB CONC 34 g/dL (33-37); MEAN CORPUSCULAR VOLUME 85.3 fL (80-94); MONOCYTES # (AUTO) 0.2 K/uL (0.8-1.0); MONOCYTES % (AUTO) 3.4 % (1.7-9.3); NEUTROPHILS # (AUTO) 5.1 K/uL (1.8-7.7); PLATELET COUNT (AUTO) 81 K/uL (140-450); RED BLOOD CELL COUNT(AUTO) 2.51 MIL/uL (4.20-6.10); RED CELL DISTRIBUTION WIDTH 14.7 % (11.6-13.7); WHITE BLOOD COUNT (AUTO) 5.7 K/uL (4.8-10.8)
[2022-07-22 08:36] LABS: ALBUMIN 2.3 g/dL (3.4-5.0); ANION GAP 16.1 (8-16); CARBON DIOXIDE 24.4 mmol/L (21-32); POTASSIUM 3.5 mmol/L (3.5-5.1); TOTAL BILIRUBIN 0.6 mg/dL (0.0-1.0)
[2022-07-22 08:50] LABS: CREATININE 6.1 mg/dL (0.6-1.3)
[2022-07-22] MEDS: PANTOPRAZOLE 40 MG INJ VIAL IVP SCH (09:00)
[2022-07-22] MEDS: guaiFENesin 600 MG TABER PO SCH ×2 (10:11→22:00)
[2022-07-22] MEDS: hydrALAZINE 10 MG TAB PO SCH ×3 (10:11→17:00)
[2022-07-22] MEDS: amLODIPine 5 MG TAB PO SCH (10:11)
[2022-07-22] MEDS: NIFEdipine 30 MG TABER PO SCH (10:12)
[2022-07-22 12:00] VITALS: BP 122/72
[2022-07-22 16:00] VITALS: BP 114/63
--- NOTE | 2022-07-22 19:00 | NUR ---
PT RECEIVING DIALYSIS, UNABLE TO DO TREATMENT
--- NOTE | 2022-07-22 19:10 | NUR ---
ENDORSED PT TO FISH GRADER NURSE FOR CONTINUITY OF CARE. PT STABLE AT THIS TIME.
--- NOTE | 2022-07-22 19:30 | NUR ---
RECEIVED PT FROM DAY RN FOR CONTINUITY OF CARE. PT AWAKE, ALERT AND ORIENTED X 4, FRISIAN SPEAKING. FAMILY AT BEDSIDE. O2 30L HI FLOW, FI02 50%. SATING AT 100%. NO S.SX OF RESPIRATORY DISTRESS NOTED. DIALYSIS ONGOING. SKIN WARM, DRY AND INTACT. IV ON R FA G18. ALL PRECAUTIONS IN PLACE. CALL LIGHT WITHIN REACH. WILL CONTINUE TO MONITOR.
[2022-07-22 20:00] VITALS: BP 110/65
--- NOTE | 2022-07-22 21:55 | NUR ---
DIALYSIS DONE. 2LITERS OUT PER DIALYSIS NURSE.WILL CONTINUE TO MONITOR.
--- NOTE | 2022-07-22 22:00 | NUR ---
SCHEDULED MEDICATION GIVEN.BLOOD SUGAR 195, 2UNITS INSULIN GIVEN. PT TOLERATED WELL. WILL CONTINUE TO MONITOR.
--- NOTE | 2022-07-22 23:30 | NUR ---
SCHEDULED ANTIBIOTICS GIVEN. PT TOLERATED WELL. WILL CONTINUE TO MONITOR.
[2022-07-23] VITALS: BP 119/65
[2022-07-23] MEDS: ALBUTEROL 0.083% 2.5 MG/3 ML NEBU INH SCH ×4 (01:44→19:34)
--- NOTE | 2022-07-23 02:42 | NUR ---
PATIENT IN BED ASLEEP. NO NOTED S/SX OF PAIN.ON HI FLOW 30L, 50% FIO2.O2 SAT AT 100%. NO NOTED S/SX OF RESPIRATORY DISTRESS. ALL PRECAUTIONS IN PLACE. CALL LIGHT WITHIN REACH. WILL CONTINUE TO MONITOR.
[2022-07-23 04:00] VITALS: BP 118/70
[2022-07-23] MEDS: PIPERACILLIN/TAZOBACTAM 2.25 GM in DEXTROSE 5% 50 ML IV SCH ×3 (06:12→17:21)
[2022-07-23] MEDS: BLOOD GLUCOSE MONITORING 1 DEV DEV FS SCH ×4 (06:41→23:00)
[2022-07-23 06:50] LABS: BASOPHILS % (AUTO) 0.6 % (0.0-2.0); EOSINOPHILS # (AUTO) 0.2 K/uL (0-0.4); EOSINOPHILS % (AUTO) 2.5 % (0.0-4.0); HEMATOCRIT 20.9 % (36-52); HEMOGLOBIN 7.1 g/dL (12.0-18.0); LYMPHOCYTES # (AUTO) 0.3 K/uL (2.0-11.5); MEAN CORPUSCULAR HEMOGLOBIN 29 pg (27-31); MEAN CORPUSCULAR HGB CONC 34 g/dL (33-37); MONOCYTES # (AUTO) 0.3 K/uL (0.8-1.0); MONOCYTES % (AUTO) 3.5 % (1.7-9.3); NEUTROPHILS # (AUTO) 6.7 K/uL (1.8-7.7); PLATELET COUNT (AUTO) 89 K/uL (140-450); RED BLOOD CELL COUNT(AUTO) 2.46 MIL/uL (4.20-6.10); RED CELL DISTRIBUTION WIDTH 14.5 % (11.6-13.7); WHITE BLOOD COUNT (AUTO) 7.5 K/uL (4.8-10.8)
--- NOTE | 2022-07-23 07:05 | NUR ---
RECEIVED REPORT FROM ROLL ICER MACHINE NURSE FOR CONTINUITY OF CARE. PTS STABLE AT THIS TIME.
--- NOTE | 2022-07-23 07:19 | NUR ---
PT IS STABLE. NO ACUTE EVENTS THROUGHOUT THE NIGHT.NO S/SX OF DISTRESS AT THIS MOMENT.ALL NEEDS ATTENDED. ALL PRECAUTIONS IN PLACE. CALL LIGHT WITHIN REACH. ENDORSED TO DAY RN.
[2022-07-23] MEDS: ACETAMINOPHEN 325 MG TAB PO PRN (07:39)
[2022-07-23 07:42] LABS: ALBUMIN 2.4 g/dL (3.4-5.0); ANION GAP 20.8 (8-16); CARBON DIOXIDE 21.1 mmol/L (21-32); POTASSIUM 3.9 mmol/L (3.5-5.1); TOTAL BILIRUBIN 0.9 mg/dL (0.0-1.0)
[2022-07-23 08:00] VITALS: BP 128/65
[2022-07-23 08:02] LABS: LYMPHOCYTES % (AUTO) 3.5 % (20.5-51.1); NEUTROPHILS % (AUTO) 89.9 % (42.2-75.2)
--- NOTE | 2022-07-23 08:02 | NUR ---
RECEIVED ON A VAPOTHERM HIGH FLOW NASAL CANNULA PLUGGED WITH COMPRESSOR ON PLUGGED INTO RED OUTLET TOLERATING WELL WITHOU ADVERSE REACTIONS NOTED SPORTS TEAM MANAGER TO MONITOR FOR FIO2 TITRATION
[2022-07-23 08:50] LABS: CREATININE 7.5 mg/dL (0.6-1.3)
[2022-07-23] MEDS: PANTOPRAZOLE 40 MG INJ VIAL IVP SCH (08:57)
[2022-07-23] MEDS: NIFEdipine 30 MG TABER PO SCH (08:57)
[2022-07-23] MEDS: guaiFENesin 600 MG TABER PO SCH ×2 (08:58→22:02)
[2022-07-23] MEDS: amLODIPine 5 MG TAB PO SCH (09:00)
[2022-07-23] MEDS: hydrALAZINE 10 MG TAB PO SCH ×3 (09:00→17:00)
[2022-07-23 12:00] VITALS: BP 104/64
[2022-07-23] MEDS: INSULIN LISPRO SLIDING SCALE 100 UNITS/ML VIAL SUBQ PRN ×2 (12:17→17:19)
--- NOTE | 2022-07-23 13:57 | NUR ---
SATURATION 97% ON FIO2 OF 35% VIA VAPOTHERM HIGH FLOW NASAL CANNULA POST HHN THERAPY TITRATED FIO2 TO 32% CHARMAINE/RN NOTIFIED
--- NOTE | 2022-07-23 16:48 | NUR ---
NO DISTRESS NOTED GOOD CHEST RISE SATURATION 95% ON FIO2 OF 32% VIA VAPOTHERM HIGH FLOW NASAL CANNULA TITRATED FIO2 TO 30% CHARMAINE/RN NOTIFIED
[2022-07-23] MEDS ORDERED: VANCOMYCIN 750 MG in DEXTROSE 5% 250 ML IV SCH (18:00)
--- NOTE | 2022-07-23 19:20 | NUR ---
ENDORSED PT TO ENGRAVING PRESS OPERATOR NURSE TONO FOR CONTINUITY OF CARE. PT IS STABLE.
--- NOTE | 2022-07-23 19:32 | NUR ---
RECEIVED ENDORSEMENT FROM DAY SHIFT NURSE FOR CONTINUITY OF CARE. PT IS AWAKE IN BED, ALERT AND ORIENTED X4, CYMRAES SPEAKING ONLY. NO COMPLAINTS OF PAIN AT THIS TIME. ON HIGH FLOW 30, FIO2 50 WITH NO SIGNS OF ACUTE DISTRESS. RESPIRATIONS EVEN AND UNLABORED. IV SITE LOCATED AT THE RIGHT FOREARM REGION 20 GAUGE, INTACT AND PATENT. SKIN IS INTACT. PATIENT TO RECEIVE DIALYSIS LATER TONIGHT. ALL SAFETY MEASURES IN PLACE. BED IN LOW/LOCKED POSITION, CALL LIGHT WITHIN REACH. WILL CONTINUE TO MAKE FREQUENT ROUNDS
--- NOTE | 2022-07-23 19:37 | NUR ---
07/23/22 RD FOLLOW UP COMPLETED. PLEASE REFER TO NUTRITION ASSESSMENT UNDER CARE ACTIVITY FOR ESTIMATED NUTRITIONAL NEEDS. 1. RECOMMEND ADDING CCHO TO RENAL DIET 2. MONITOR PO INTAKE. 3. RD TO FOLLOW-UP 3-5 DAYS, MODERATE RISK OSMAN BLACKMON, RD
--- NOTE | 2022-07-23 22:47 | NUR ---
PATIENT COMPLETED DIALYSIS 2238. 2 LITERS REMOVED.
[2022-07-24] VITALS: BP 125/53
[2022-07-24] MEDS: ALBUTEROL 0.083% 2.5 MG/3 ML NEBU INH SCH ×4 (00:06→19:46)
--- NOTE | 2022-07-24 01:25 | NUR ---
PATIENT COMPLAINED OF DIFFICULTY BREATHING WHILE SATING AT 88%. RAISED THE PATIENTS HOB AND CONTACTED RT. HI FLOW WAS CHANGED TO 20L, FIO2 28%. NOW SATING AT 92-95%. WILL CONTINUE TO MONITOR.
[2022-07-24] MEDS: ACETAMINOPHEN 325 MG TAB PO PRN ×2 (03:40→15:56)
[2022-07-24] MEDS: BLOOD GLUCOSE MONITORING 1 DEV DEV FS SCH ×4 (07:30→19:59)
--- NOTE | 2022-07-24 07:30 | NUR ---
RECIEVED THE PATIENT FROM BROOMMAKING SUPERVISOR NURSE.PATIENT IS VERBALLY ACTIVE,CAMEROONIAN SPEAKING.VITALS ARE STABLE,ON HIGH FLOW OXYGEN WITH 20 L.HAS RIGHT PERMICATH IN PLACE. ALL SAFETY MEASURES IN PLACE.POC DISCUSSED.WILL CONTINUE TO MONITOR.
[2022-07-24 08:00] VITALS: BP 127/65
[2022-07-24] MEDS: guaiFENesin 600 MG TABER PO SCH ×2 (09:00→20:35)
[2022-07-24] MEDS: amLODIPine 5 MG TAB PO SCH (09:55)
[2022-07-24] MEDS: hydrALAZINE 10 MG TAB PO SCH ×2 (09:55→13:46)
[2022-07-24] MEDS: PANTOPRAZOLE 40 MG INJ VIAL IVP SCH (09:56)
[2022-07-24] MEDS: EPOETIN ALFA-EPBX 10,000 UNITS/ML VIAL IV SCH (10:55)
[2022-07-24] MEDS: INSULIN LISPRO SLIDING SCALE 100 UNITS/ML VIAL SUBQ PRN ×3 (12:14→20:01)
[2022-07-24] MEDS ORDERED: VANCOMYCIN PER PHARMACY MC PRN (15:35)
[2022-07-24 16:00] VITALS: BP 142/70
--- NOTE | 2022-07-24 16:01 | NUR ---
PATIENT HAS FEVER WITH TEMP 103.[address] VAZQUEZ AND DR HOOVER AND MADE THEM AWARE.TAB TYLENOL ADMINISTERED PRN.WILL CONTINUE TO MONITOR.
--- NOTE | 2022-07-24 17:42 | NUR ---
RECKED THE TEMPERATURE,98.3 NOTED.VITALS ARE STABLE.NO OTHER COMPLAINTS AT THIS TIME.
[2022-07-24] MEDS: PIPERACILLIN/TAZOBACTAM 2.25 GM in DEXTROSE 5% 50 ML IV SCH (18:00)
[2022-07-24] MEDS: carvediloL 6.25 MG TAB PO SCH (20:41)
[2022-07-25 00:16] VITALS: BP 131/70
[2022-07-25] MEDS: PIPERACILLIN/TAZOBACTAM 2.25 GM in DEXTROSE 5% 50 ML IV SCH ×5 (00:18→23:09)
[2022-07-25] MEDS: ALBUTEROL 0.083% 2.5 MG/3 ML NEBU INH SCH ×2 (00:29→19:30)
--- NOTE | 2022-07-25 01:15 | NUR ---
PATIENT STABLE NOT COMPLAINING OF PAIN VITALS SIGNS IN NORMAL LIMITS HAS BM STOOL FOR OCCULT BLOOD WAS SEND TO THE LAB
[2022-07-25] MEDS: BLOOD GLUCOSE MONITORING 1 DEV DEV FS SCH ×4 (05:11→20:24)
[2022-07-25] MEDS: INSULIN LISPRO SLIDING SCALE 100 UNITS/ML VIAL SUBQ PRN ×4 (05:16→20:25)
[2022-07-25 05:26] LABS: BASOPHILS # (AUTO) 0.1 K/uL (0.00-0.22); BASOPHILS % (AUTO) 0.5 % (0.0-2.0); EOSINOPHILS # (AUTO) 0.2 K/uL (0-0.4); EOSINOPHILS % (AUTO) 1.5 % (0.0-4.0); HEMATOCRIT 21.1 % (36-52); HEMOGLOBIN 7.1 g/dL (12.0-18.0); LYMPHOCYTES # (AUTO) 0.3 K/uL (2.0-11.5); LYMPHOCYTES % (AUTO) 2.7 % (20.5-51.1); MEAN CORPUSCULAR HEMOGLOBIN 29 pg (27-31); MEAN CORPUSCULAR HGB CONC 34 g/dL (33-37); MEAN CORPUSCULAR VOLUME 84.6 fL (80-94); MONOCYTES # (AUTO) 0.4 K/uL (0.8-1.0); NEUTROPHILS # (AUTO) 11.5 K/uL (1.8-7.7); NEUTROPHILS % (AUTO) 92.3 % (42.2-75.2); PLATELET COUNT (AUTO) 113 K/uL (140-450); RED BLOOD CELL COUNT(AUTO) 2.49 MIL/uL (4.20-6.10); RED CELL DISTRIBUTION WIDTH 14.5 % (11.6-13.7); WHITE BLOOD COUNT (AUTO) 12.5 K/uL (4.8-10.8)
[2022-07-25 06:04] LABS: ANION GAP 20.1 (8-16); CARBON DIOXIDE 21.1 mmol/L (21-32); POTASSIUM 4.2 mmol/L (3.5-5.1)
[2022-07-25 06:15] LABS: CREATININE 7.5 mg/dL (0.6-1.3)
[2022-07-25 06:21] LABS: MAGNESIUM 2.2 mg/dL (1.8-2.4)
[2022-07-25] MEDS: ACETAMINOPHEN 325 MG TAB PO PRN ×3 (06:39→20:24)
[2022-07-25 08:00] VITALS: BP 147/78
--- NOTE | 2022-07-25 08:00 | NUR ---
RECEIVED IN BED ASSESSMENT COMPLETED NO DISTRESS NOTED AT THIS TIME PLAN OF CARE REVIEWED DENIES PAIN AT THIS TIME CALL LIGHT IN REACH WILL CONTINUE TO MONITOR AND ASSESSS
[2022-07-25] MEDS: ECOTRIN 81 MG TABEC PO SCH (09:00)
[2022-07-25] MEDS: guaiFENesin 600 MG TABER PO SCH ×2 (09:00→20:24)
[2022-07-25] MEDS: lisinopriL 20 MG TAB PO SCH (09:00)
[2022-07-25] MEDS: PANTOPRAZOLE 40 MG INJ VIAL IVP SCH (09:00)
[2022-07-25] MEDS: carvediloL 6.25 MG TAB PO SCH ×2 (09:00→20:24)
--- NOTE | 2022-07-25 12:30 | NUR ---
TYLENOL 650MG GIVEN FOR TEMP 100.3 PT DENIES CHILLS AT THIS TIME WILL CONTINUE TO MONITOR AND ASSESS
[2022-07-25] MEDS ORDERED: VANCOMYCIN 750 MG in DEXTROSE 5% 250 ML IV SCH (15:00)
[2022-07-25 16:00] VITALS: BP 170/92
--- NOTE | 2022-07-25 17:43 | NUR ---
BP 170/92 HR 88 TEMP 99.1 PT HAS 6 BLANKETS ON HIM WILL MEDICATE WITH HYDRALAZINE ORDERED WILL GIVE IV ANTIBIOTIC ORDERED WILL NOTIFY MD WILL CONTINUE TO MONITOR AND ASSESS
[2022-07-25] MEDS: hydrALAZINE 20 MG/ML VIAL IVP PRN (17:45)
--- NOTE | 2022-07-25 18:00 | NUR ---
MD CANELA AWARE OF BP AND TEMP WITH CHILLS AND PER SHE WILL ORDER BLOOD CULTURES
--- NOTE | 2022-07-25 19:12 | NUR ---
VANCOMYCIN NOT IN PYXIS CALL PLACED TO PHARMACY NO ANSWER NOC RN TO FOLLOW UP BP 159/81
[2022-07-25] MEDS ORDERED: VANCOMYCIN 1,000 MG VIAL ONE (19:21)
--- NOTE | 2022-07-25 19:21 | NUR ---
VANCO AVAILABLE AND GIVEN
--- NOTE | 2022-07-25 19:25 | NUR ---
RECEIVED PT IN BED, AWAKE,ALERT AND ORIENTED. FAMILY MEMBER AT THE BEDSIDE. DENIES PAIN. DENIES SHORTNESS OF BREATH. SKIN WARM AND DRY TO TOUCH. SAFETY PRECAUTION IN PLACE, CALL LIGHT IN REACH.
--- NOTE | 2022-07-25 20:24 | NUR ---
TEM-100.1, TYLENOL GIVEN ORDERED, STARTED COOLING MEASURES.
[2022-07-26] VITALS: BP 170/92
--- NOTE | 2022-07-26 | NUR ---
PT ASLEEP. PT IS AFEBRILE AT THIS TIME.
[2022-07-26] MEDS: ALBUTEROL 0.083% 2.5 MG/3 ML NEBU INH SCH ×4 (01:17→19:39)
[2022-07-26] MEDS: PIPERACILLIN/TAZOBACTAM 2.25 GM in DEXTROSE 5% 50 ML IV SCH ×4 (05:08→23:51)
[2022-07-26 05:58] LABS: BASOPHILS # (AUTO) 0.1 K/uL (0.00-0.22); BASOPHILS % (AUTO) 0.6 % (0.0-2.0); EOSINOPHILS # (AUTO) 0.1 K/uL (0-0.4); HEMATOCRIT 23.8 % (36-52); HEMOGLOBIN 8.1 g/dL (12.0-18.0); LYMPHOCYTES # (AUTO) 0.4 K/uL (2.0-11.5); LYMPHOCYTES % (AUTO) 3.1 % (20.5-51.1); MEAN CORPUSCULAR HEMOGLOBIN 29 pg (27-31); MEAN CORPUSCULAR HGB CONC 34 g/dL (33-37); MEAN CORPUSCULAR VOLUME 84.8 fL (80-94); MONOCYTES # (AUTO) 0.4 K/uL (0.8-1.0); MONOCYTES % (AUTO) 3.2 % (1.7-9.3); NEUTROPHILS # (AUTO) 12.1 K/uL (1.8-7.7); NEUTROPHILS % (AUTO) 92.1 % (42.2-75.2); PLATELET COUNT (AUTO) 143 K/uL (140-450); RED BLOOD CELL COUNT(AUTO) 2.81 MIL/uL (4.20-6.10); RED CELL DISTRIBUTION WIDTH 14.7 % (11.6-13.7); WHITE BLOOD COUNT (AUTO) 13.2 K/uL (4.8-10.8)
[2022-07-26 06:20] LABS: ANION GAP 19.8 (8-16); CARBON DIOXIDE 20.9 mmol/L (21-32); POTASSIUM 4.7 mmol/L (3.5-5.1)
--- NOTE | 2022-07-26 06:22 | NUR ---
PATIENT IS ASLEEP. NO DISTRESS NOTED. ALL NEEDS ATTENDED TO. SAFETY PRECAUTIONS IN PLACE, CALL LIGHT IN REACH.
[2022-07-26 06:23] LABS: CREATININE 6.1 mg/dL (0.6-1.3)
[2022-07-26 06:30] LABS: PHOSPHORUS 4.7 mg/dL (2.5-4.9)
[2022-07-26] MEDS: BLOOD GLUCOSE MONITORING 1 DEV DEV FS SCH ×4 (06:30→21:15)
--- NOTE | 2022-07-26 07:15 | NUR ---
RECEIVED REPORT FROM STRAND AND BINDER CONTROLLER NURSE FOR CONTINUITY OF CARE. PTS STABLE AT THIS TIME.
[2022-07-26 08:00] VITALS: BP 159/87
[2022-07-26] MEDS: lisinopriL 20 MG TAB PO SCH (08:58)
[2022-07-26] MEDS: ECOTRIN 81 MG TABEC PO SCH (08:58)
[2022-07-26] MEDS: PANTOPRAZOLE 40 MG INJ VIAL IVP SCH (08:58)
[2022-07-26] MEDS: carvediloL 6.25 MG TAB PO SCH ×2 (08:58→21:12)
[2022-07-26] MEDS: guaiFENesin 600 MG TABER PO SCH ×2 (08:58→21:13)
[2022-07-26] MEDS: EPOETIN ALFA-EPBX 10,000 UNITS/ML VIAL IV SCH (08:58)
[2022-07-26] MEDS: INSULIN LISPRO SLIDING SCALE 100 UNITS/ML VIAL SUBQ PRN ×3 (12:08→21:14)
[2022-07-26 16:00] VITALS: BP 148/78
--- NOTE | 2022-07-26 16:08 | NUR ---
07/26/22 RD FOLLOW UP COMPLETED PLEASE REFER TO NUTRITION ASSESSMENT UNDER CARE ACTIVITY FOR ESTIMATED NUTRITIONAL NEEDS. 1. RECOMMEND ADDING RENAL TO CCHO 60 GRAM DIET. 2. RECOMMEND NEPRO 1X DAY. 3. MONITOR LAB VALUES, GI, AND PO INTAKE. 4. RD TO FOLLOW-UP 3-5 DAYS, MODERATE RISK REVIEWED BY LAURIE BARBOSA RD
--- NOTE | 2022-07-26 19:05 | NUR ---
ENDORSED PT TO BUSINESS INTEGRATION MANAGER NURSE FOR CONTINUITY OF CARE. PT STABLE AT THIS TIME.
--- NOTE | 2022-07-26 19:35 | NUR ---
RECEIVED PT FROM AM NURSE FOR CONTINUITY OF CARE.PT IS STABLE
--- NOTE | 2022-07-27 | NUR ---
PATIENT ASLEEP, NO S/SX OF DISTRESS NOTED
[2022-07-27] MEDS: ALBUTEROL 0.083% 2.5 MG/3 ML NEBU INH SCH ×4 (01:24→19:43)
[2022-07-27] MEDS: ACETAMINOPHEN 325 MG TAB PO PRN ×2 (03:59→20:30)
[2022-07-27 04:00] VITALS: BP 137/70
[2022-07-27] MEDS: PIPERACILLIN/TAZOBACTAM 2.25 GM in DEXTROSE 5% 50 ML IV SCH ×4 (05:29→23:42)
[2022-07-27 05:54] LABS: BASOPHILS # (AUTO) 0.1 K/uL (0.00-0.22); BASOPHILS % (AUTO) 0.7 % (0.0-2.0); EOSINOPHILS # (AUTO) 0.1 K/uL (0-0.4); EOSINOPHILS % (AUTO) 1.2 % (0.0-4.0); HEMATOCRIT 20.8 % (36-52); HEMOGLOBIN 7.1 g/dL (12.0-18.0); LYMPHOCYTES # (AUTO) 0.7 K/uL (2.0-11.5); LYMPHOCYTES % (AUTO) 5.5 % (20.5-51.1); MEAN CORPUSCULAR HEMOGLOBIN 29 pg (27-31); MEAN CORPUSCULAR HGB CONC 34 g/dL (33-37); MEAN CORPUSCULAR VOLUME 84.2 fL (80-94); MONOCYTES # (AUTO) 0.5 K/uL (0.8-1.0); MONOCYTES % (AUTO) 4.1 % (1.7-9.3); NEUTROPHILS # (AUTO) 10.6 K/uL (1.8-7.7); NEUTROPHILS % (AUTO) 88.5 % (42.2-75.2); PLATELET COUNT (AUTO) 155 K/uL (140-450); RED BLOOD CELL COUNT(AUTO) 2.47 MIL/uL (4.20-6.10); RED CELL DISTRIBUTION WIDTH 14.5 % (11.6-13.7); WHITE BLOOD COUNT (AUTO) 11.9 K/uL (4.8-10.8)
[2022-07-27 06:07] LABS: PHOSPHORUS 5.1 mg/dL (2.5-4.9)
[2022-07-27] MEDS: INSULIN LISPRO SLIDING SCALE 100 UNITS/ML VIAL SUBQ PRN ×4 (06:35→20:29)
[2022-07-27] MEDS: BLOOD GLUCOSE MONITORING 1 DEV DEV FS SCH ×4 (06:37→20:29)
[2022-07-27 06:38] LABS: ANION GAP 17.8 (8-16); CARBON DIOXIDE 19.4 mmol/L (21-32); POTASSIUM 5.2 mmol/L (3.5-5.1)
[2022-07-27 06:39] LABS: CREATININE 7.9 mg/dL (0.6-1.3)
--- NOTE | 2022-07-27 07:53 | NUR ---
GOT REPORT FROM THE NIGHT NURSE, PT SLEEPING NO SOB [email or web address]
[2022-07-27 08:00] VITALS: BP 102/60
[2022-07-27] MEDS: PANTOPRAZOLE 40 MG INJ VIAL IVP SCH (09:18)
[2022-07-27] MEDS: ECOTRIN 81 MG TABEC PO SCH (09:19)
[2022-07-27] MEDS: VIT-B COMP/VIT-C/FOLIC ACID 1 TAB PO SCH (09:19)
[2022-07-27] MEDS: lisinopriL 20 MG TAB PO SCH (09:19)
[2022-07-27] MEDS: carvediloL 6.25 MG TAB PO SCH ×2 (09:19→20:27)
[2022-07-27] MEDS: guaiFENesin 600 MG TABER PO SCH ×2 (09:19→20:28)
[2022-07-27 16:51] VITALS: BP 102/60
[2022-07-27] MEDS: hydrALAZINE 20 MG/ML VIAL IVP PRN (17:16)
--- NOTE | 2022-07-27 17:53 | NUR ---
HYDRALAZINE 10MG GIVEN WASTED 10MG FOR HI [id number]
--- NOTE | 2022-07-27 19:30 | NUR ---
RECEIVED PT FROM AM NURSE FOR CONTINUITY OF CARE. PT IS STABLE
[2022-07-28] VITALS: BP 132/76
[2022-07-28] MEDS: ALBUTEROL 0.083% 2.5 MG/3 ML NEBU INH SCH ×4 (01:00→19:00)
[2022-07-28] MEDS: ACETAMINOPHEN 325 MG TAB PO PRN ×5 (04:39→22:02)
[2022-07-28 05:52] LABS: BASOPHILS # (AUTO) 0.1 K/uL (0.00-0.22); BASOPHILS % (AUTO) 0.6 % (0.0-2.0); EOSINOPHILS # (AUTO) 0.1 K/uL (0-0.4); EOSINOPHILS % (AUTO) 0.7 % (0.0-4.0); HEMATOCRIT 20.3 % (36-52); LYMPHOCYTES # (AUTO) 0.5 K/uL (2.0-11.5); LYMPHOCYTES % (AUTO) 4.5 % (20.5-51.1); MEAN CORPUSCULAR HEMOGLOBIN 28 pg (27-31); MEAN CORPUSCULAR HGB CONC 34 g/dL (33-37); MEAN CORPUSCULAR VOLUME 84.1 fL (80-94); MONOCYTES # (AUTO) 0.6 K/uL (0.8-1.0); MONOCYTES % (AUTO) 5.8 % (1.7-9.3); NEUTROPHILS # (AUTO) 9.8 K/uL (1.8-7.7); NEUTROPHILS % (AUTO) 88.4 % (42.2-75.2); PLATELET COUNT (AUTO) 174 K/uL (140-450); RED BLOOD CELL COUNT(AUTO) 2.41 MIL/uL (4.20-6.10); RED CELL DISTRIBUTION WIDTH 14.2 % (11.6-13.7); WHITE BLOOD COUNT (AUTO) 11.1 K/uL (4.8-10.8)
[2022-07-28] MEDS: PIPERACILLIN/TAZOBACTAM 2.25 GM in DEXTROSE 5% 50 ML IV SCH ×3 (05:53→18:20)
[2022-07-28 05:56] LABS: ANION GAP 14.1 (8-16); CARBON DIOXIDE 24.3 mmol/L (21-32); POTASSIUM 4.4 mmol/L (3.5-5.1)
[2022-07-28 05:58] LABS: MAGNESIUM 1.8 mg/dL (1.8-2.4); PHOSPHORUS 4.6 mg/dL (2.5-4.9)
[2022-07-28 06:03] LABS: CREATININE 6.1 mg/dL (0.6-1.3)
[2022-07-28 06:19] LABS: HEMOGLOBIN 6.8 g/dL (12.0-18.0)
[2022-07-28] MEDS: INSULIN LISPRO SLIDING SCALE 100 UNITS/ML VIAL SUBQ PRN ×4 (06:27→20:12)
--- NOTE | 2022-07-28 06:29 | NUR ---
TEXTED MD REGARDING PATIENT'S HEMOGLOBIN OF 6.8 AND HEMATOCRIT 20.3. AWAITING RESPONSE
[2022-07-28] MEDS: BLOOD GLUCOSE MONITORING 1 DEV DEV FS SCH ×4 (06:46→20:13)
--- NOTE | 2022-07-28 07:15 | NUR ---
ENDORSED PT TO AM NURSE FOR CONTINUITY OF CARE. PT IS STABLE
--- NOTE | 2022-07-28 07:31 | NUR ---
GOT REPORT FROM THE NIGHT NURSE, PT SLEEPING , NO SOB [email or web address]
[2022-07-28 08:00] VITALS: BP 135/73
[2022-07-28] MEDS: ECOTRIN 81 MG TABEC PO SCH (08:30)
[2022-07-28] MEDS: VIT-B COMP/VIT-C/FOLIC ACID 1 TAB PO SCH (08:31)
[2022-07-28] MEDS: guaiFENesin 600 MG TABER PO SCH ×2 (08:31→20:03)
[2022-07-28] MEDS: lisinopriL 20 MG TAB PO SCH (08:32)
[2022-07-28] MEDS: carvediloL 6.25 MG TAB PO SCH ×2 (08:32→20:03)
[2022-07-28] MEDS: PANTOPRAZOLE 40 MG INJ VIAL IVP SCH (08:34)
[2022-07-28] MEDS: EPOETIN ALFA-EPBX 10,000 UNITS/ML VIAL IV SCH (09:00)
--- NOTE | 2022-07-28 10:30 | NUR ---
started new iv on left forarm with frieda 22 [email or web address]
--- NOTE | 2022-07-28 10:39 | NUR ---
PT HAD 100.1 TEMP TYLENOL GIVEN ORDERED.[email or web address]
--- NOTE | 2022-07-28 11:37 | NUR ---
PT PUT IN THE TELE MONITOR.[email or web address]
--- NOTE | 2022-07-28 12:00 | NUR ---
PATIENT OUT FROM TELE MONITOR.[email or web address]
[2022-07-28 16:00] VITALS: BP 146/80
--- NOTE | 2022-07-28 16:22 | NUR ---
PT IS GETTING ONE PACK BLOOD WITH DIALYSIS. IN ROOM AIR PT SATURATION 87,02 3LNC PUT ON AND RESPERATORY IN THE WAY TO GIVE HIM TREATMENT.[email or web address]
[2022-07-28] MEDS: hydrALAZINE 20 MG/ML VIAL IVP PRN (17:11)
[2022-07-28] MEDS: ALBUTEROL 0.083% 2.5 MG/3 ML NEBU INH PRN ×3 (17:21→18:18)
[2022-07-28] MEDS ORDERED: LORazepam 2 MG/ML VIAL ONE (17:36)
[2022-07-28] MEDS ORDERED: LORazepam 2 MG/ML VIAL IVP SCH (17:36)
--- NOTE | 2022-07-28 17:41 | NUR ---
PATIENTS VITALS ARE UNSTABLE.BP 194/104,ME 117,95 %SAT,BREATHING LABOURED AT 35 BREATHS PER MINUTE.ADMINISTERED PRN BP MEDS.CONTACTED MD AND ADVISED TO GIVE STAT ATIVAN 1MG.ADMINISTERED ATIVAN 1 MG IV PERORDER .[email or web address]
[2022-07-28] MEDS ORDERED: LABETALOL 20 MG/4 ML VIAL IVP SCH (18:30)
--- NOTE | 2022-07-28 18:35 | NUR ---
PT WAS BREATHING 30-40\MINUTS BP [id number] HR 117 02 95% , RESPIRATORY TREATMENT GIVEN AND O2 5LNC MAINTAINED , DALASIS STOPPED, BP MED IV PUSH DONE TWO TIMES WITH DEFERENT MEDS SEE MED RECORD. GIVEN TYLENOL 2 X IN THE SHIFT FOR TEMP OVER 100, INFECTION SAID TO REMOVE THE DIALYSIS CATHETER. THE LATEST PB IS NOW 170\103 HR IS 119. PT RESTING MONITORING [id number] .
--- NOTE | 2022-07-28 20:00 | NUR ---
RECEIVED PT IN BED AWAKE,ALERT AND ORIENTED. FAMILY MEMBERS AT THE BEDSIDE. DENIES PAIN. DENIES SHORTNESS OF BREATH. SKIN WARM AND DRY TO TOUCH. SAFETY PRECAUTION IN PLACE, CALL LIGHT IN REACH.
[2022-07-28] MEDS: MICAFUNGIN SODIUM 100 MG in NACL 0.9% 100 ML IV SCH (20:03)
--- NOTE | 2022-07-28 22:02 | NUR ---
CURRENT TEMP-100.4 TYLENOL GIVEN, COOLING MEASURES DONE.
[2022-07-29] VITALS: BP 141/81
--- NOTE | 2022-07-29 | NUR ---
CURRENT TEMP IS 99.2. PT DENIES PAIN AT THIS TIME. CALL LIGHT IN REACH.
[2022-07-29] MEDS: ALBUTEROL 0.083% 2.5 MG/3 ML NEBU INH SCH ×4 (01:00→20:05)
--- NOTE | 2022-07-29 04:23 | NUR ---
BREATHING TREATMENT GIVEN BY RT, PT COMPLAINED OF SHORTNESS OF BREATH BUT FEELS BETTER AFTER TREATMENT. PT NOTED TO BE SWEATING, BS CHECKED-188 MG/DL. DENIES PAIN. CALL LIGHT IN REACH.
[2022-07-29 05:24] LABS: BASOPHILS # (AUTO) 0.1 K/uL (0.00-0.22); BASOPHILS % (AUTO) 0.8 % (0.0-2.0); EOSINOPHILS # (AUTO) 0.1 K/uL (0-0.4); EOSINOPHILS % (AUTO) 0.6 % (0.0-4.0); HEMATOCRIT 29.5 % (36-52); HEMOGLOBIN 9.8 g/dL (12.0-18.0); LYMPHOCYTES # (AUTO) 0.4 K/uL (2.0-11.5); LYMPHOCYTES % (AUTO) 2.7 % (20.5-51.1); MEAN CORPUSCULAR HEMOGLOBIN 29 pg (27-31); MEAN CORPUSCULAR HGB CONC 33 g/dL (33-37); MEAN CORPUSCULAR VOLUME 87.6 fL (80-94); MONOCYTES # (AUTO) 0.6 K/uL (0.8-1.0); MONOCYTES % (AUTO) 4.1 % (1.7-9.3); NEUTROPHILS # (AUTO) 12.3 K/uL (1.8-7.7); PLATELET COUNT (AUTO) 250 K/uL (140-450); RED BLOOD CELL COUNT(AUTO) 3.37 MIL/uL (4.20-6.10); RED CELL DISTRIBUTION WIDTH 14.9 % (11.6-13.7); WHITE BLOOD COUNT (AUTO) 13.4 K/uL (4.8-10.8)
[2022-07-29 05:41] LABS: NEUTROPHILS % (AUTO) 91.8 % (42.2-75.2)
--- NOTE | 2022-07-29 06:18 | NUR ---
PATIENT IS AWAKE, WATCHING. DENIES SHORTNESS OF BREATH. ALL NEEDS ATTENDED TO. SAFETY PRECAUTIONS MAINTAINED DURING THE SHIFT, CALL LIGHT REMAINS WITHIN REACH.
[2022-07-29] MEDS: INSULIN LISPRO SLIDING SCALE 100 UNITS/ML VIAL SUBQ PRN ×3 (06:31→21:01)
[2022-07-29] MEDS: BLOOD GLUCOSE MONITORING 1 DEV DEV FS SCH ×4 (06:31→20:54)
[2022-07-29 06:47] LABS: ANION GAP 18.8 (8-16); CARBON DIOXIDE 22.5 mmol/L (21-32); POTASSIUM 4.3 mmol/L (3.5-5.1)
--- NOTE | 2022-07-29 07:12 | NUR ---
receive the patinet from the sound engineer rn in rm 124B with admitting diagnosis of acute kidney injury aox4 algerian speaking on hemodialysis MWF . for hemodialysis today . removal of right tunnel catheter due to fungal infection . will continue to monitor
[2022-07-29 07:21] LABS: CREATININE 5.4 mg/dL (0.6-1.3)
[2022-07-29 08:00] VITALS: BP 163/91
[2022-07-29] MEDS ORDERED: FLUCONAZOLE 100 MG TAB PO SCH (09:00)
[2022-07-29] MEDS: guaiFENesin 600 MG TABER PO SCH ×2 (09:37→20:38)
[2022-07-29] MEDS: PANTOPRAZOLE 40 MG INJ VIAL IVP SCH (09:37)
[2022-07-29] MEDS: ECOTRIN 81 MG TABEC PO SCH (09:37)
[2022-07-29] MEDS: lisinopriL 20 MG TAB PO SCH (09:38)
[2022-07-29] MEDS: carvediloL 6.25 MG TAB PO SCH ×2 (09:38→20:38)
[2022-07-29] MEDS: VIT-B COMP/VIT-C/FOLIC ACID 1 TAB PO SCH (09:38)
[2022-07-29] MEDS: hydrALAZINE 20 MG/ML VIAL IVP PRN (11:30)
--- NOTE | 2022-07-29 11:30 | NUR ---
respiratory therapist dis some blood gas today .started the patinet on bipap
--- NOTE | 2022-07-29 13:30 | NUR ---
made an extra hemodialysis today
[2022-07-29] MEDS: hydrALAZINE 25 MG TAB PO SCH ×2 (14:33→17:08)
--- NOTE | 2022-07-29 15:33 | NUR ---
md ma follow up with tunnel catheter fungal infection of the patient called md ray . replied he will come to see the patient today
[2022-07-29 16:00] VITALS: BP 151/90
[2022-07-29] MEDS ORDERED: oxyCODONE/APAP 5/325 MG 1 TAB TAB PO PRN (16:05)
[2022-07-29] MEDS ORDERED: oxyCODONE/APAP 5/325 MG 1 TAB TAB ONE (16:20)
--- NOTE | 2022-07-29 16:40 | NUR ---
md ray remove the tunnel catheter on the right chest to prevent fungal infection . applied pressure dressing . gave percocet to prevent pain . also gave acetaminophen 650mg for temp of 100.3 . will continue to monitor
[2022-07-29] MEDS: ACETAMINOPHEN 325 MG TAB PO PRN (17:02)
--- NOTE | 2022-07-29 18:36 | NUR ---
will endorse to night monitor rn for continuity of care
--- NOTE | 2022-07-29 19:15 | NUR ---
PATIENT LYING ON THE BED, FAMILY AT BEDSIDE, IV ACCESS SITE ON LEFT FA, PATENT AND INTACT. PATIENT IS AWAKE, ALERT AND ORIENTED, NO SIGNS OF DISTRESS NOTED. CALL LIGHT WITHIN REACH.
[2022-07-29 20:00] VITALS: BP 144/78
--- NOTE | 2022-07-29 20:11 | NUR ---
PT WAS SEEN AND ASSESSED. PT WAS AWAKE AND ALERT IN BED. PT ON 2L NASAL CANNULAR WITH SPO2 OF 93%. NO RESPIRATORY DISTRESS NOTED AT THIS TIME. SCHEDULE HHN TX WAS GIVEN ORDERED AND PT TOLERATED WELL WITHOUT ANY ADVERSE REACTION. WILL CONTINUE TO MONITOR PT.
[2022-07-29] MEDS: MICAFUNGIN SODIUM 100 MG in NACL 0.9% 100 ML IV SCH (20:28)
--- NOTE | 2022-07-29 21:00 | NUR ---
DUE MEDICATIONS GIVEN ORDERED.
--- NOTE | 2022-07-30 00:25 | NUR ---
CHECKED ON PATIENT, PATIENT IS AWAKE, DENIES PAIN, NO SIGNS OF DISTRESS NOTED. CALL LIGHT WITHIN REACH.
[2022-07-30] MEDS: ALBUTEROL 0.083% 2.5 MG/3 ML NEBU INH SCH ×4 (00:32→19:00)
[2022-07-30] MEDS: ACETAMINOPHEN 325 MG TAB PO PRN ×3 (01:35→17:27)
--- NOTE | 2022-07-30 01:35 | NUR ---
PATIENT C/O HEADACHE, GIVEN PRN TYLENOL. WILL CONTINUE TO MONITOR THE PATIENT.
--- NOTE | 2022-07-30 03:00 | NUR ---
PATIENT IS ASLEEP, ON O2 @4 LPM NC, NO SIGNS OF PAIN/DISCOMFORT NOTED, NO SIGNS OF DISTRESS NOTED. CALL LIGHT IS WITHIN REACH.
[2022-07-30] MEDS: BLOOD GLUCOSE MONITORING 1 DEV DEV FS SCH ×4 (06:35→20:25)
[2022-07-30] MEDS: INSULIN LISPRO SLIDING SCALE 100 UNITS/ML VIAL SUBQ PRN ×4 (06:36→20:27)
--- NOTE | 2022-07-30 07:31 | NUR ---
ENDORSED PATIENT TO DAY NURSE FOR CONTINUITY OF CARE. PATIENT IN STABLE CONDITION.
[2022-07-30 08:00] VITALS: BP 171/93
[2022-07-30] MEDS: guaiFENesin 600 MG TABER PO SCH ×2 (09:32→20:26)
[2022-07-30] MEDS: VIT-B COMP/VIT-C/FOLIC ACID 1 TAB PO SCH (09:32)
[2022-07-30] MEDS: ECOTRIN 81 MG TABEC PO SCH (09:32)
[2022-07-30] MEDS: PANTOPRAZOLE 40 MG INJ VIAL IVP SCH (09:33)
[2022-07-30] MEDS: carvediloL 6.25 MG TAB PO SCH ×2 (09:35→20:25)
[2022-07-30] MEDS: lisinopriL 20 MG TAB PO SCH (09:35)
[2022-07-30] MEDS: hydrALAZINE 25 MG TAB PO SCH ×3 (09:36→17:26)
--- NOTE | 2022-07-30 15:07 | NUR ---
2 RD FOLLOW UP COMPLETED.PLEASE REFER TO NUTRITION ASSESSMENT UNDER CARE ACTIVITY FOR ESTIMATED NUTRITIONAL NEEDS. 1. CONTINUE WITH RENAL/CCHO 60 GRAM DIET WITH NEPRO 1X/DAY 2. MONITOR LAB VALUES. 3. RD TO FOLLOW-UP 3-5 DAYS, MODERATE RISK OSMAN BLACKMON RD
[2022-07-30 16:00] VITALS: BP 158/79
--- NOTE | 2022-07-30 19:15 | NUR ---
RECEIVED PATIENT LYING ON THE BED, HOB ELEVATED, ON O2 @4LPM NC, NO DISTRESS NOTED, DENIES PAIN UPON ASSESSMENT. FAMILY AT BEDSIDE. CALL LIGHT WITHIN REACH.
--- NOTE | 2022-07-30 19:15 | NUR ---
PATIENT RESTING IN BED, AAO x4, NO C/O PAIN/DISCOMFORT AT THIS TIME. RESPIRATIONS EVEN AND UL. COOLING MEASURES IN PLACE, LAST TEMP 99.5. ALL NEEDS MET. SAFETY MEASURES IN PLACE, CALL LIGHT IN REACH. PT AT BEDSIDE. ENDORSED TO PM NURSE FOR CONTINUITY OF CARE.
[2022-07-30 20:00] VITALS: BP 168/92
[2022-07-30] MEDS: MICAFUNGIN SODIUM 100 MG in NACL 0.9% 100 ML IV SCH (20:12)
[2022-07-30] MEDS: hydrALAZINE 20 MG/ML VIAL IVP PRN (20:35)
--- NOTE | 2022-07-30 20:35 | NUR ---
SCHEDULED MEDICATIONS GIVEN ORDERED. PATIENT'S BP 168/92, PRN APRESOLINE GIVEN ORDERED.
--- NOTE | 2022-07-30 23:26 | NUR ---
PATIENT INFORMED OF HIS NPO STATUS AFTER MIDNIGHT FOR ADALID PROCEDURE IN THE MORNING. PATIENT VERBALIZED UNDERSTANDING. SIGN PLACED OUTSIDE OF PATIENT'S ROOM.
--- NOTE | 2022-07-30 23:40 | NUR ---
RECEIVED ORDER FROM DR. STRANGE FOR PATIENT, 2MG VERSED AND FENTANYL 100MCG, TO BE GIVEN BY DR. STRANGE BEFORE PROCEDURE. PUT ORDER IN. PER PHARMACIST, FENTANYL NEEDS TO BE VERIFIED PER PHARMACY PROTOCOL.
[2022-07-30] MEDS ORDERED: MIDAZOLAM 2 MG/2 ML VIAL IV ONE (23:50)
[2022-07-31] MEDS ORDERED: FENTANYL C 0.1 MG/HR PATCH TD SCH
[2022-07-31] MEDS ORDERED: MIDAZOLAM 2 MG/2 ML VIAL IV ONE
[2022-07-31] MEDS: ALBUTEROL 0.083% 2.5 MG/3 ML NEBU INH SCH ×4 (01:00→20:45)
[2022-07-31] MEDS: ACETAMINOPHEN 325 MG TAB PO PRN ×2 (01:31→18:52)
--- NOTE | 2022-07-31 01:31 | NUR ---
PATIENT'S TEMP 100.9, PRN TYLENOL GIVEN ORDERED, STARTED COOLING MEASURES.
--- NOTE | 2022-07-31 03:00 | NUR ---
PATIENT'S TEMP IS 99.0
[2022-07-31 04:00] VITALS: BP 162/86
[2022-07-31] MEDS: hydrALAZINE 20 MG/ML VIAL IVP PRN ×2 (05:28→17:16)
[2022-07-31] MEDS: BLOOD GLUCOSE MONITORING 1 DEV DEV FS SCH ×4 (06:36→21:00)
[2022-07-31] MEDS: INSULIN LISPRO SLIDING SCALE 100 UNITS/ML VIAL SUBQ PRN ×4 (06:37→21:24)
--- NOTE | 2022-07-31 07:09 | NUR ---
receive the patient on rm 124 B admitting diagnosis of acute kidney injury , hyponatremia . still npo for transesphageal echocardiogram by md bethea . will continue to monitor
[2022-07-31 07:28] LABS: BASOPHILS # (AUTO) 0.1 K/uL (0.00-0.22); BASOPHILS % (AUTO) 1.3 % (0.0-2.0); EOSINOPHILS % (AUTO) 0.2 % (0.0-4.0); HEMATOCRIT 28.8 % (36-52); HEMOGLOBIN 9.5 g/dL (12.0-18.0); LYMPHOCYTES # (AUTO) 0.5 K/uL (2.0-11.5); LYMPHOCYTES % (AUTO) 4.9 % (20.5-51.1); MEAN CORPUSCULAR HEMOGLOBIN 29 pg (27-31); MEAN CORPUSCULAR HGB CONC 33 g/dL (33-37); MEAN CORPUSCULAR VOLUME 87.5 fL (80-94); MONOCYTES # (AUTO) 0.4 K/uL (0.8-1.0); MONOCYTES % (AUTO) 3.3 % (1.7-9.3); NEUTROPHILS # (AUTO) 10.2 K/uL (1.8-7.7); NEUTROPHILS % (AUTO) 90.3 % (42.2-75.2); PLATELET COUNT (AUTO) 282 K/uL (140-450); RED BLOOD CELL COUNT(AUTO) 3.29 MIL/uL (4.20-6.10); RED CELL DISTRIBUTION WIDTH 15.3 % (11.6-13.7); WHITE BLOOD COUNT (AUTO) 11.3 K/uL (4.8-10.8)
--- NOTE | 2022-07-31 07:34 | NUR ---
ENDORSED PATIENT TO DAY NURSE FOR CONTINUITY CARE. PATIENT IN STABLE CONDITION.
[2022-07-31 07:41] LABS: ANION GAP 20.1 (8-16); CARBON DIOXIDE 22.1 mmol/L (21-32); POTASSIUM 4.2 mmol/L (3.5-5.1)
[2022-07-31 07:51] LABS: CREATININE 6.7 mg/dL (0.6-1.3)
[2022-07-31 08:00] VITALS: BP 106/65
[2022-07-31] MEDS ORDERED: MIDAZOLAM 2 MG/2 ML VIAL IVP SCH (09:00)
[2022-07-31] MEDS ORDERED: fentaNYL citrate 0.05 MG/ML VIAL IVP SCH (09:00)
[2022-07-31] MEDS ORDERED: MIDAZOLAM 5 MG/5 ML VIAL ONE (09:09)
[2022-07-31] MEDS: PANTOPRAZOLE 40 MG INJ VIAL IVP SCH (09:30)
[2022-07-31] MEDS: carvediloL 6.25 MG TAB PO SCH ×2 (09:31→21:10)
[2022-07-31] MEDS: lisinopriL 20 MG TAB PO SCH (09:32)
[2022-07-31] MEDS: guaiFENesin 600 MG TABER PO SCH ×2 (09:32→21:10)
[2022-07-31] MEDS: ECOTRIN 81 MG TABEC PO SCH (09:32)
[2022-07-31] MEDS: hydrALAZINE 25 MG TAB PO SCH ×3 (09:33→17:42)
[2022-07-31] MEDS: VIT-B COMP/VIT-C/FOLIC ACID 1 TAB PO SCH (09:33)
--- NOTE | 2022-07-31 10:31 | NUR ---
transesophageal echocardiogram done md neema winkler . tolerated the procedure . will continue to monitor
--- NOTE | 2022-07-31 11:03 | NUR ---
@ 0937 RT ASSISTED WITH SUCTIONING AND WATCHING VITAL SIGNS WHILE DR STRANGE PREFORMED A ADALID. PT TOLERATED PROCEDURE WELL. PT WAS ON 3L NC SATING 97% WITH HR 98. NURSE, DR,& CASTING PLUG ASSEMBLER AT BEDSIDE.NO DISTRESS NOTED. WILL CONTINUE TO MONITOR PT
[2022-07-31 18:17] VITALS: BP 175/86
--- NOTE | 2022-07-31 18:18 | NUR ---
will endorse to shift superintendent rn for continuity of care
--- NOTE | 2022-07-31 18:46 | NUR ---
patient has a temp of 110.3 . will give tylenol and apply cooling measures
[2022-07-31 20:00] VITALS: BP 153/93
--- NOTE | 2022-07-31 20:45 | NUR ---
PT REFUSED BREATHING TX
[2022-07-31] MEDS: MICAFUNGIN SODIUM 100 MG in NACL 0.9% 100 ML IV SCH (21:16)
[2022-07-31] MEDS ORDERED: MEROPENEM 500 MG in NACL 0.9% 50 ML IV SCH (21:30)
[2022-08-01] MEDS: ALBUTEROL 0.083% 2.5 MG/3 ML NEBU INH SCH ×2 (01:46→20:16)
[2022-08-01 04:00] VITALS: BP 150/87
[2022-08-01] MEDS: ACETAMINOPHEN 325 MG TAB PO PRN (04:29)
[2022-08-01 06:05] LABS: BASOPHILS # (AUTO) 0.1 K/uL (0.00-0.22); BASOPHILS % (AUTO) 0.8 % (0.0-2.0); EOSINOPHILS # (AUTO) 0.1 K/uL (0-0.4); EOSINOPHILS % (AUTO) 0.8 % (0.0-4.0); HEMATOCRIT 27.2 % (36-52); LYMPHOCYTES # (AUTO) 0.6 K/uL (2.0-11.5); LYMPHOCYTES % (AUTO) 5.2 % (20.5-51.1); MEAN CORPUSCULAR HEMOGLOBIN 29 pg (27-31); MEAN CORPUSCULAR HGB CONC 33 g/dL (33-37); MEAN CORPUSCULAR VOLUME 87.3 fL (80-94); MONOCYTES # (AUTO) 0.5 K/uL (0.8-1.0); MONOCYTES % (AUTO) 4.7 % (1.7-9.3); NEUTROPHILS # (AUTO) 10.1 K/uL (1.8-7.7); NEUTROPHILS % (AUTO) 88.5 % (42.2-75.2); PLATELET COUNT (AUTO) 265 K/uL (140-450); RED BLOOD CELL COUNT(AUTO) 3.12 MIL/uL (4.20-6.10); RED CELL DISTRIBUTION WIDTH 15.7 % (11.6-13.7); WHITE BLOOD COUNT (AUTO) 11.4 K/uL (4.8-10.8)
[2022-08-01 06:25] LABS: ANION GAP 20.7 (8-16); CARBON DIOXIDE 23.1 mmol/L (21-32); POTASSIUM 4.8 mmol/L (3.5-5.1)
[2022-08-01] MEDS: BLOOD GLUCOSE MONITORING 1 DEV DEV FS SCH ×4 (06:49→21:00)
--- NOTE | 2022-08-01 07:03 | NUR ---
receive the patient aox4 with admitting diagnosis of hyponatremia . acute kidnye injury . for possible [place] catheter placement today
--- NOTE | 2022-08-01 07:55 | NUR ---
PT REFUSED BREATHING TX. RT TITRATED PT FROM 2L NC TO ROOM AIR PT TOLERATED WELL. HR 93 SPO2 95%. NO RESP DISTRESS. WILL CONTINUE TO MONITOR.
[2022-08-01 08:00] VITALS: BP 163/94
[2022-08-01] MEDS: MEROPENEM 500 MG in NACL 0.9% 50 ML IV SCH ×2 (08:56→22:18)
[2022-08-01] MEDS: PANTOPRAZOLE 40 MG INJ VIAL IVP SCH (08:56)
[2022-08-01] MEDS: ECOTRIN 81 MG TABEC PO SCH (08:57)
[2022-08-01] MEDS: guaiFENesin 600 MG TABER PO SCH ×2 (08:57→20:55)
[2022-08-01] MEDS: lisinopriL 20 MG TAB PO SCH (08:57)
[2022-08-01] MEDS: carvediloL 6.25 MG TAB PO SCH ×2 (08:57→20:55)
[2022-08-01] MEDS: hydrALAZINE 25 MG TAB PO SCH ×3 (08:59→16:19)
[2022-08-01] MEDS: VIT-B COMP/VIT-C/FOLIC ACID 1 TAB PO SCH (09:01)
[2022-08-01 09:07] LABS: CREATININE 7.7 mg/dL (0.6-1.3)
--- NOTE | 2022-08-01 10:30 | NUR ---
md mcmullen internal control analyst prescribe order for hemodialysis
--- NOTE | 2022-08-01 11:31 | NUR ---
oh surgeon place left britney catheter in his elft subclavian . will continue to monitor for bleeding . ready for use
[2022-08-01] MEDS: INSULIN LISPRO SLIDING SCALE 100 UNITS/ML VIAL SUBQ PRN ×3 (13:38→21:03)
--- NOTE | 2022-08-01 14:30 | NUR ---
the hemodialysis nurse started on hemodialysis . output 2.5 . bp was 186/78 . gave hydralize ivp . will continue to monitor
[2022-08-01 16:00] VITALS: BP 189/101
[2022-08-01] MEDS: hydrALAZINE 20 MG/ML VIAL IVP PRN (17:48)
--- NOTE | 2022-08-01 19:06 | NUR ---
will endorse to pharmacy general manager rn for continuity of care . for monitoring for any bleeding on the britney cath on the left subclavian
--- NOTE | 2022-08-01 19:25 | NUR ---
RECEIVED PT FROM MORNING SHIFT NURSE. PT IS LYING ON THE BED WHILE WATCHING TV, WITH ON BED SIDE. PT IS AOX4, BEDREST, DANISH SPEAKING, ABLE TO VERBALIZE NEEDS AND ABLE TO FOLLOW COMMANDS. PT IS ON 4L NC AND ON RENAL DIET. PT HAS BEDSIDE URINAL AND HAS IV ON LEFT FOREARM GAUGE 18 RUNNING WITH NS AT TKO. PT SKIN IS INTACT. PT DENIES PAIN AND NO S/S OF RESPIRATORY DISTRESS. ALL SAFETY MEASURES IMPLEMENTED. BED WHEELS ON LOCK, BED IN LOW POSITION AND CALL LIGHT WITHIN REACH.
--- NOTE | 2022-08-01 19:26 | NUR ---
DAY SHIFT NURSE DIDNT DO THE RE-ASSESSMENT OF BP FOR HYDRALAZINE BUT THE LATEST BP IS 158/89
[2022-08-01] MEDS: MICAFUNGIN SODIUM 100 MG in NACL 0.9% 100 ML IV SCH (20:54)
--- NOTE | 2022-08-01 21:03 | NUR ---
PT BLOOD GLUCOSE IS 169. 2 UNITS HUMALOG INSULIN WAS GIVEN TO PT. ALL SAFETY MEASURES IMPLEMENTED. BED WHEELS ON LOCK, BED IN LOW POSITION AND CALL LIGHT WITHIN REACH.
[2022-08-02] VITALS: BP 158/89
--- NOTE | 2022-08-02 | NUR ---
PT IS SLEEPING. CHEST RISE AND FALL SYMMETRICALLY NOTED. RESPIRATION IS EVEN AND UNLABORED. ALL SAFETY MEASURES IMPLEMENTED. BED IN LOW POSITION, BED WHEELS ON LOCK AND CALL LIGHT WITHIN REACH.
[2022-08-02] MEDS: ALBUTEROL 0.083% 2.5 MG/3 ML NEBU INH SCH ×4 (01:35→19:33)
--- NOTE | 2022-08-02 02:00 | NUR ---
CHECKED THE PT STILL SLEEPING. CHEST RISE AND FALL SYMMETRICALLY NOTED. RESPIRATION IS EVEN AND UNLABORED. ALL SAFETY MEASURES IMPLEMENTED. BED IN LOW POSITION, BED WHEELS ON LOCK AND CALL LIGHT WITHIN REACH.
[2022-08-02] MEDS: hydrALAZINE 20 MG/ML VIAL IVP PRN ×2 (05:08→20:50)
--- NOTE | 2022-08-02 05:08 | NUR ---
PRN HYDRALAZINE WAS GIVEN TO PT DUE BP OF 164/88 WITH PULSE OF 97. ALL SAFETY MEASURES IMPLEMENTED. BED IN LOW POSITION, BED WHEELS ON LOCK AND CALL LIGHT WITHIN REACH.
[2022-08-02 06:02] LABS: ANION GAP 17.5 (8-16); CARBON DIOXIDE 24.6 mmol/L (21-32); POTASSIUM 4.1 mmol/L (3.5-5.1)
[2022-08-02 06:07] LABS: BASOPHILS # (AUTO) 0.1 K/uL (0.00-0.22); BASOPHILS % (AUTO) 0.8 % (0.0-2.0); EOSINOPHILS # (AUTO) 0.1 K/uL (0-0.4); EOSINOPHILS % (AUTO) 0.7 % (0.0-4.0); HEMATOCRIT 23.4 % (36-52); LYMPHOCYTES # (AUTO) 0.7 K/uL (2.0-11.5); LYMPHOCYTES % (AUTO) 6.6 % (20.5-51.1); MEAN CORPUSCULAR HEMOGLOBIN 30 pg (27-31); MEAN CORPUSCULAR HGB CONC 34 g/dL (33-37); MONOCYTES # (AUTO) 0.7 K/uL (0.8-1.0); NEUTROPHILS # (AUTO) 9.3 K/uL (1.8-7.7); NEUTROPHILS % (AUTO) 85.9 % (42.2-75.2); PLATELET COUNT (AUTO) 222 K/uL (140-450); RED BLOOD CELL COUNT(AUTO) 2.69 MIL/uL (4.20-6.10); RED CELL DISTRIBUTION WIDTH 15.6 % (11.6-13.7); WHITE BLOOD COUNT (AUTO) 10.8 K/uL (4.8-10.8)
[2022-08-02] MEDS: INSULIN LISPRO SLIDING SCALE 100 UNITS/ML VIAL SUBQ PRN ×4 (06:32→21:14)
[2022-08-02] MEDS: BLOOD GLUCOSE MONITORING 1 DEV DEV FS SCH ×4 (06:32→21:11)
--- NOTE | 2022-08-02 06:32 | NUR ---
PT BLOOD GLUCOSE IS 160. 2 UNITS INSULIN HUMALOG WAS GIVEN TO PT.
[2022-08-02 07:04] LABS: CREATININE 5.8 mg/dL (0.6-1.3)
--- NOTE | 2022-08-02 07:04 | NUR ---
RECEIVED CALL FROM LAB DUE TO CREATININE OF 5.8, TRENDING DOWN. NO NEED TO REPORT TO .
--- NOTE | 2022-08-02 07:08 | NUR ---
receive the patinet from the handtools repairer rn aox4 admitting diagnosis of acute kidney injury . will continue to monitor
--- NOTE | 2022-08-02 07:26 | NUR ---
PT IS STABLE. ENDORSED PT TO MORNING SHIFT NURSE FOR CONTINUITY OF CARE.
[2022-08-02 08:00] VITALS: BP 161/86
[2022-08-02] MEDS: lisinopriL 20 MG TAB PO SCH (09:01)
[2022-08-02] MEDS: carvediloL 6.25 MG TAB PO SCH ×2 (09:02→20:49)
[2022-08-02] MEDS: guaiFENesin 600 MG TABER PO SCH ×2 (09:02→20:50)
[2022-08-02] MEDS: VIT-B COMP/VIT-C/FOLIC ACID 1 TAB PO SCH (09:02)
[2022-08-02] MEDS: hydrALAZINE 25 MG TAB PO SCH ×3 (09:03→16:58)
[2022-08-02] MEDS: MEROPENEM 500 MG in NACL 0.9% 50 ML IV SCH ×2 (09:03→22:13)
[2022-08-02] MEDS: PANTOPRAZOLE 40 MG INJ VIAL IVP SCH (09:04)
[2022-08-02] MEDS: ECOTRIN 81 MG TABEC PO SCH (09:11)
[2022-08-02 16:00] VITALS: BP 166/89
--- NOTE | 2022-08-02 18:47 | NUR ---
will endorse to operations supervisor 2nd shift rn for continuity of care . for hemodialysis tomorrow
--- NOTE | 2022-08-02 18:49 | NUR ---
possible transfer to tertiary care evaluation for cardio/thoracic surgery evaluation
--- NOTE | 2022-08-02 19:20 | NUR ---
RECEIVED PT FROM MORNING SHIFT NURSE. PT IS LYING ON THE BED WHILE WATCHING TV, WITH ON BED SIDE. PT IS AOX4, BEDREST, GERMAN SPEAKING, ABLE TO VERBALIZE NEEDS AND ABLE TO FOLLOW COMMANDS. PT IS ON ROOM AIR AND ON RENAL DIET. PT HAS BEDSIDE URINAL AND HAS IV ON LEFT FOREARM SALINE LOCK. PT SKIN IS INTACT. PT DENIES PAIN AND NO S/S OF RESPIRATORY DISTRESS. ALL SAFETY MEASURES IMPLEMENTED. BED WHEELS ON LOCK, BED IN LOW POSITION AND CALL LIGHT WITHIN REACH.
[2022-08-02] MEDS: MICAFUNGIN SODIUM 100 MG in NACL 0.9% 100 ML IV SCH (20:49)
--- NOTE | 2022-08-02 20:50 | NUR ---
ALL SCHEDULED AND PRESCRIBED MEDICATION WAS GIVEN TO PT PER MD ORDER. ALL SAFETY MEASURES IMPLEMENTED. BED WHEELS ON LOCK, BED IN LOW POSITION AND CALL LIGHT WITHIN REACH.
--- NOTE | 2022-08-02 21:14 | NUR ---
PT BLOOD GLUCOSE IS 169. HUMALOG INSULIN 2 UNITS WAS GIVEN TO PT.
--- NOTE | 2022-08-02 21:50 | NUR ---
LATEST BP OF IS 156/82 WITH A PULSE OF 88 AFTER GIVING HYDRALAZINE.
[2022-08-03] VITALS: BP 157/84
--- NOTE | 2022-08-03 | NUR ---
PT IS ON SLEEP. CHEST RISE AND FALL SYMMETRICALLY NOTED. RESPIRATION IS EVEN AND UNLABORED. ALL SAFETY MEASURES IMPLEMENTED. BED IN LOW POSITION, BED WHEELS ON LOCKED AND CALL LIGHT WITHIN REACH.
[2022-08-03] MEDS: ALBUTEROL 0.083% 2.5 MG/3 ML NEBU INH SCH ×4 (01:00→19:00)
--- NOTE | 2022-08-03 04:00 | NUR ---
MORNING CARE WAS DONE TO PT. CHANGED GOWN, AND LINENS. ALL SAFETY MEASURES IMPLEMENTED. BED IN LOW POSITION, BED WHEELS ON LOCKED AND CALL LIGHT WITHIN REACH.
[2022-08-03 05:40] LABS: BASOPHILS # (AUTO) 0.1 K/uL (0.00-0.22); BASOPHILS % (AUTO) 0.9 % (0.0-2.0); EOSINOPHILS # (AUTO) 0.1 K/uL (0-0.4); EOSINOPHILS % (AUTO) 1.1 % (0.0-4.0); HEMATOCRIT 25.3 % (36-52); HEMOGLOBIN 8.5 g/dL (12.0-18.0); LYMPHOCYTES # (AUTO) 0.9 K/uL (2.0-11.5); LYMPHOCYTES % (AUTO) 8.6 % (20.5-51.1); MEAN CORPUSCULAR HEMOGLOBIN 29 pg (27-31); MEAN CORPUSCULAR HGB CONC 33 g/dL (33-37); MEAN CORPUSCULAR VOLUME 87.7 fL (80-94); MONOCYTES # (AUTO) 0.6 K/uL (0.8-1.0); MONOCYTES % (AUTO) 6.2 % (1.7-9.3); NEUTROPHILS # (AUTO) 8.6 K/uL (1.8-7.7); NEUTROPHILS % (AUTO) 83.2 % (42.2-75.2); PLATELET COUNT (AUTO) 253 K/uL (140-450); RED BLOOD CELL COUNT(AUTO) 2.89 MIL/uL (4.20-6.10); RED CELL DISTRIBUTION WIDTH 15.7 % (11.6-13.7); WHITE BLOOD COUNT (AUTO) 10.3 K/uL (4.8-10.8)
[2022-08-03 06:27] LABS: ANION GAP 17.9 (8-16); CARBON DIOXIDE 24.5 mmol/L (21-32); POTASSIUM 4.4 mmol/L (3.5-5.1)
--- NOTE | 2022-08-03 06:51 | NUR ---
NOTIFIED DR. CANELA REGARDING PT CRITICAL LAB OF BUN-67 AND CREATININE OF 7.
[2022-08-03] MEDS: BLOOD GLUCOSE MONITORING 1 DEV DEV FS SCH ×4 (06:53→20:50)
--- NOTE | 2022-08-03 06:53 | NUR ---
PT BLOOD GLUCOSE IS 113. NO INSULIN COVERAGE NEEDED.
--- NOTE | 2022-08-03 07:08 | NUR ---
receive the patient from the operations supervisor 2nd shift rn aox2 with admitting diagnosis of acute kidney injury . with schedule of hemodialysis today . will continue to monitor
--- NOTE | 2022-08-03 07:18 | NUR ---
PT IS STABLE. ENDORSED PT TO MORNING SHIFT NURSE FOR CONTINUITY OF CARE.
[2022-08-03 08:00] VITALS: BP 165/85
[2022-08-03] MEDS: carvediloL 6.25 MG TAB PO SCH ×2 (09:07→20:54)
[2022-08-03] MEDS: guaiFENesin 600 MG TABER PO SCH ×2 (09:07→20:54)
[2022-08-03] MEDS: VIT-B COMP/VIT-C/FOLIC ACID 1 TAB PO SCH (09:07)
[2022-08-03] MEDS: MEROPENEM 500 MG in NACL 0.9% 50 ML IV SCH ×2 (09:08→20:54)
[2022-08-03] MEDS: PANTOPRAZOLE 40 MG INJ VIAL IVP SCH (09:08)
[2022-08-03] MEDS: lisinopriL 20 MG TAB PO SCH (09:08)
[2022-08-03] MEDS: hydrALAZINE 25 MG TAB PO SCH ×3 (09:09→17:00)
[2022-08-03] MEDS: ECOTRIN 81 MG TABEC PO SCH (09:09)
--- NOTE | 2022-08-03 11:00 | NUR ---
md mcmullen made some rounds recommended 3-4 liters output
--- NOTE | 2022-08-03 11:42 | NUR ---
the came in with a guest from the [facility]
[2022-08-03] MEDS: INSULIN LISPRO SLIDING SCALE 100 UNITS/ML VIAL SUBQ PRN ×2 (12:08→20:55)
--- NOTE | 2022-08-03 13:40 | NUR ---
patient strted on hemodialysis ended at 16:00 pm output 4 liters bp 166/88 . will give hydralize
--- NOTE | 2022-08-03 13:43 | NUR ---
HEMODIALYSIS IN PROGRESS
[2022-08-03 16:00] VITALS: BP 175/67
--- NOTE | 2022-08-03 18:50 | NUR ---
will endorse to to security shift supervisor rn for continuity of care . paln to have the patient transferred to tertiary care for cardio/thoracic evaluation
--- NOTE | 2022-08-03 19:59 | NUR ---
RECEIVED IN BED SPOUSE AT BEDSIDE PLAN OF CARE REVIEWED NO DISTRESS NOTED ORIENTED TO CALL LIGHT AND ADVISED TO CALL FOR ASSISTANCE WHEN NEEDED WILL CONTINUE TO MONITOR AND ASSESS
[2022-08-03] MEDS: MICAFUNGIN SODIUM 100 MG in NACL 0.9% 100 ML IV SCH (20:54)
[2022-08-03] MEDS: ACETAMINOPHEN 325 MG TAB PO PRN (20:54)
[2022-08-04] VITALS: BP 161/81
[2022-08-04] MEDS: ALBUTEROL 0.083% 2.5 MG/3 ML NEBU INH SCH ×3 (01:00→13:00)
[2022-08-04 05:46] LABS: BASOPHILS # (AUTO) 0.1 K/uL (0.00-0.22); BASOPHILS % (AUTO) 1.1 % (0.0-2.0); EOSINOPHILS # (AUTO) 0.1 K/uL (0-0.4); EOSINOPHILS % (AUTO) 1.1 % (0.0-4.0); HEMATOCRIT 23.4 % (36-52); HEMOGLOBIN 7.9 g/dL (12.0-18.0); LYMPHOCYTES # (AUTO) 0.8 K/uL (2.0-11.5); LYMPHOCYTES % (AUTO) 9.7 % (20.5-51.1); MEAN CORPUSCULAR HEMOGLOBIN 30 pg (27-31); MEAN CORPUSCULAR HGB CONC 34 g/dL (33-37); MEAN CORPUSCULAR VOLUME 87.9 fL (80-94); MONOCYTES # (AUTO) 0.6 K/uL (0.8-1.0); MONOCYTES % (AUTO) 7.9 % (1.7-9.3); NEUTROPHILS # (AUTO) 6.2 K/uL (1.8-7.7); NEUTROPHILS % (AUTO) 80.2 % (42.2-75.2); PLATELET COUNT (AUTO) 245 K/uL (140-450); RED BLOOD CELL COUNT(AUTO) 2.66 MIL/uL (4.20-6.10); RED CELL DISTRIBUTION WIDTH 15.6 % (11.6-13.7); WHITE BLOOD COUNT (AUTO) 7.8 K/uL (4.8-10.8)
[2022-08-04 05:54] LABS: ANION GAP 11.4 (8-16); CARBON DIOXIDE 30.5 mmol/L (21-32); CREATININE 5.3 mg/dL (0.6-1.3); POTASSIUM 3.9 mmol/L (3.5-5.1)
[2022-08-04] MEDS: INSULIN LISPRO SLIDING SCALE 100 UNITS/ML VIAL SUBQ PRN ×3 (06:30→21:26)
[2022-08-04] MEDS: hydrALAZINE 20 MG/ML VIAL IVP PRN (06:31)
[2022-08-04] MEDS: BLOOD GLUCOSE MONITORING 1 DEV DEV FS SCH ×4 (06:34→21:26)
--- NOTE | 2022-08-04 06:35 | NUR ---
BP 173/95 HYDRALAZINE GIVEN IV WILL ENDORSE TO ONCOMING LICENSED NURSE TO FOLLOW UP WITH REASSESSMENT AT 0731
--- NOTE | 2022-08-04 07:04 | NUR ---
receive the patient from the shift supervisor rn in rm 124B aox4 with admitting diagnosis of acute kidney injury . will continue to monitor
[2022-08-04 08:00] VITALS: BP 157/82
[2022-08-04] MEDS: MEROPENEM 500 MG in NACL 0.9% 50 ML IV SCH ×2 (09:32→22:55)
[2022-08-04] MEDS: ECOTRIN 81 MG TABEC PO SCH (09:33)
[2022-08-04] MEDS: carvediloL 6.25 MG TAB PO SCH ×2 (09:33→21:25)
[2022-08-04] MEDS: hydrALAZINE 25 MG TAB PO SCH ×3 (09:33→17:57)
[2022-08-04] MEDS: VIT-B COMP/VIT-C/FOLIC ACID 1 TAB PO SCH (09:33)
[2022-08-04] MEDS: PANTOPRAZOLE 40 MG INJ VIAL IVP SCH (09:33)
[2022-08-04] MEDS: lisinopriL 20 MG TAB PO SCH (09:34)
[2022-08-04] MEDS: guaiFENesin 600 MG TABER PO SCH ×2 (09:42→21:26)
[2022-08-04] MEDS: EPOETIN ALFA-EPBX 10,000 UNITS/ML VIAL IV SCH (09:58)
[2022-08-04] MEDS ORDERED: LISI20TA29 PO (11:00)
[2022-08-04] MEDS ORDERED: HYDR-4420 PO (11:00)
[2022-08-04] MEDS ORDERED: FLUC200T8 PO (11:00)
[2022-08-04] MEDS ORDERED: ASPI-1856 PO (11:00)
[2022-08-04] MEDS ORDERED: CARV6.252 PO (11:00)
--- NOTE | 2022-08-04 13:33 | NUR ---
Pt refused his 0700 Albuterol treatment. He was sleeping and told us to go away. We told him we would come back and when we did, he told us the same thing. (stopped by at 0700 and 0800)
[2022-08-04 16:00] VITALS: BP 157/88
--- NOTE | 2022-08-04 16:14 | NUR ---
08/04/22 RD FOLLOW UP COMPLETED PLEASE REFER TO NUTRITION ASSESSMENT UNDER CARE ACTIVITY FOR ESTIMATED NUTRITIONAL NEEDS. 1. CONTINUE CCHO 60 GM, RENAL DIET WITH NEPRO 1/DAY TOLERATED -PROVIDES 420 KCAL AND 19 GM PROTEIN DAILY 2. MONITOR BG LEVELS 3. RD TO FOLLOW-UP 7 DAYS, LOW RISK REVIEWED BY LAURIE BARBOSA RD
--- NOTE | 2022-08-04 19:03 | NUR ---
will endorse to surveyor geophysical prospecting rn for continuity of care . plan is to have hemodialysis catheter to be discharge home
--- NOTE | 2022-08-04 19:24 | NUR ---
RECEIVED REPORT FROM DAY SHIFT NURSE TINA FOR CONTINUITY OF CARE. PT AWAKE IN BED WITH VISITOR AT BEDSIDE. RESPIRATIONS EVEN AND UNLABORED ON RA. [facility] HD CATH IN PLACE, INTACT. INITIAL ASSESSMENT DONE. POC DISCUSSED WITH THE PT AND RN PABLO. CALL LIGHT WITHIN REACH. SAFETY PRECAUTIONS IN PLACE.
[2022-08-04 20:00] VITALS: BP 154/76
[2022-08-04] MEDS: MICAFUNGIN SODIUM 100 MG in NACL 0.9% 100 ML IV SCH (21:00)
--- NOTE | 2022-08-04 21:30 | NUR ---
ADMINISTERED DUE MEDS. SLIDING SCALE INSULIN GIVEN FOR BS 206. PT TOLERATED WELL.
--- NOTE | 2022-08-05 04:15 | NUR ---
V/S TAKEN. NO COMPLAINTS OF PAIN. NO DISTRESS NOTED. DRAIN 250CC URINE FROM URINAL. PT REMAINED CLEAN AND DRY.
[2022-08-05 05:55] LABS: BASOPHILS # (AUTO) 0.1 K/uL (0.00-0.22); BASOPHILS % (AUTO) 0.8 % (0.0-2.0); EOSINOPHILS # (AUTO) 0.1 K/uL (0-0.4); EOSINOPHILS % (AUTO) 1.4 % (0.0-4.0); HEMATOCRIT 25.7 % (36-52); HEMOGLOBIN 8.6 g/dL (12.0-18.0); LYMPHOCYTES # (AUTO) 0.9 K/uL (2.0-11.5); LYMPHOCYTES % (AUTO) 8.6 % (20.5-51.1); MEAN CORPUSCULAR HEMOGLOBIN 29 pg (27-31); MEAN CORPUSCULAR HGB CONC 34 g/dL (33-37); MEAN CORPUSCULAR VOLUME 87.2 fL (80-94); MONOCYTES # (AUTO) 0.6 K/uL (0.8-1.0); MONOCYTES % (AUTO) 5.6 % (1.7-9.3); NEUTROPHILS # (AUTO) 8.3 K/uL (1.8-7.7); NEUTROPHILS % (AUTO) 83.6 % (42.2-75.2); PLATELET COUNT (AUTO) 301 K/uL (140-450); RED BLOOD CELL COUNT(AUTO) 2.94 MIL/uL (4.20-6.10); RED CELL DISTRIBUTION WIDTH 15.1 % (11.6-13.7); WHITE BLOOD COUNT (AUTO) 9.9 K/uL (4.8-10.8)
[2022-08-05 05:56] LABS: ANION GAP 15.6 (8-16); CARBON DIOXIDE 26.6 mmol/L (21-32); POTASSIUM 4.2 mmol/L (3.5-5.1)
[2022-08-05 06:08] LABS: CREATININE 6.4 mg/dL (0.6-1.3)
[2022-08-05] MEDS: BLOOD GLUCOSE MONITORING 1 DEV DEV FS SCH ×4 (06:33→21:31)
[2022-08-05] MEDS: INSULIN LISPRO SLIDING SCALE 100 UNITS/ML VIAL SUBQ PRN ×3 (06:34→16:25)
--- NOTE | 2022-08-05 06:40 | NUR ---
RECEIVED ORDER FROM DR GIBSON, PT FOR HD TODAY. DIALYSIS NURSE WAS ALSO INFORMED.
--- NOTE | 2022-08-05 07:09 | NUR ---
ENDORSED PT TO DAY SHIFT NURSE RAVIN FOR CONTINUITY OF CARE. PT FOR HD TODAY. ALL NEEDS MET THROUGHOUT SHIFT. PT IS STABLE.
--- NOTE | 2022-08-05 07:15 | NUR ---
ASSUMED CONTINUITY OF CARE. INITIAL ASSESSMENT DONE. KEEP COMFORTABLE ON BED. EXPLAINED USE OF CALL LIGHT/BED/TV/BATHROOM. VERBALIZED UNDERSTANDING. CALL LIGHT WITHIN REACH.
[2022-08-05 08:00] VITALS: BP 164/85
--- NOTE | 2022-08-05 08:00 | NUR ---
RECEIVED PT AWAKE, ALERT AND ORIENTED, SEATED ON THE BED ON ROOM AIR, LEFT IJ TUNNELLED CATHETER IN PLACE, IV LINE NOTED ON THE LEFT FOREARM G. 22,, EDMEA +1 NOTED ON BILATERAL UPPER ARMS AND LOWER EXTREMITIES, PLAN OF CARE WAS DISCUSSED TO SUSTAIN ENGINEER.
[2022-08-05] MEDS: PANTOPRAZOLE 40 MG INJ VIAL IVP SCH (08:54)
--- NOTE | 2022-08-05 08:54 | NUR ---
PT WAS GIVEN IVPB MERREM AND IV PROTONIX NOW, NOTED A DRY BLOOD ON BILATERAL CORNERS OF MOUTH, FROM SORES ON EACH CORNERS, PT DENIES PAIN AT THIS TIME.
[2022-08-05] MEDS: MEROPENEM 500 MG in NACL 0.9% 50 ML IV SCH (08:55)
[2022-08-05] MEDS: hydrALAZINE 25 MG TAB PO SCH ×3 (09:04→16:56)
[2022-08-05] MEDS: lisinopriL 20 MG TAB PO SCH (09:05)
[2022-08-05] MEDS: ECOTRIN 81 MG TABEC PO SCH (09:05)
[2022-08-05] MEDS: VIT-B COMP/VIT-C/FOLIC ACID 1 TAB PO SCH (09:05)
[2022-08-05] MEDS: carvediloL 6.25 MG TAB PO SCH ×2 (09:05→21:29)
[2022-08-05] MEDS: guaiFENesin 600 MG TABER PO SCH ×2 (09:05→21:29)
--- NOTE | 2022-08-05 09:55 | NUR ---
DR. AZEVEDO CAME SPOKE TO PT. AND PT. AT BEDSIDE.
--- NOTE | 2022-08-05 11:26 | NUR ---
CALLED DR. AZEVEDO AND INFORMED THAT DR. HOOVER WANTED TO D/C LEFT IJ BECAUSE IT CAUSING SEPSIS TO PT.. ALSO INFORMED DR. AZEVEDO THAT PT. WILL BE HAVING DIALYSIS TODAY AFTER [address] AZEVEDO IT'S OK TO USE LEFT IJ. INFORMED CHARGE NURSE TORI ALEXANDER.
[2022-08-05 14:00] VITALS: BP 173/92
--- NOTE | 2022-08-05 14:53 | NUR ---
DR. HOOVER CAME AND SAID THAT PT. CAN'T HAVE PERMA CATH, PT. NEED TO TRANSFER TO HLOC, AND NEED TO TRANSFER LEFT IJ. INFORMED CHARGE NURSE TORI ALEXANDER. PAGED DR. AZEVEDO REGARDING DR. HOOVER INFORMATION.
[2022-08-05 16:00] VITALS: BP 166/87
--- NOTE | 2022-08-05 16:42 | NUR ---
HD NURSE CAME AND ACCORDING TO HER, NOT TO GIVE PT. BP MEDS.
--- NOTE | 2022-08-05 17:42 | NUR ---
DR. DOMENIC GIBSON CAME AND SEEN PT.. INFORMED THAT DR. HOOVER WANTED TO REMOVED LEFT IJ ZAIRA CATH AFTER HD. ACCORDING TO DR. GIBSON NO NEED TO REMOVED IJ ZAIRA CATH BECAUSE IT WAS ONLY REPLACED ON 08/01/2020. PAGED DR. VILLASENOR AND DR. AZEVEDO REGARDING DR. GIBSON INFORMATION.
--- NOTE | 2022-08-05 18:24 | NUR ---
2 VIALS OF HEPARIN 5000 UNITS GIVEN TO HD NURSE FOR PT. HD.
--- NOTE | 2022-08-05 19:12 | NUR ---
REPORT GIVEN TO CHANELL GARCIA. PT. HAVING DIALYSIS AT THIS TIME. IN STABLE CONDITION. REPORT ALSO GIVEN ABOUT DR. OHOVER AND DR. GIBSON INFORMATION ABOUT PT. LEFT IJ ZAIRA CATHETER. INFORMED CHANELL GARCIA TO FOLLOW UP WITH DR. HOOVER REGARDING REMOVING OF PT. HD CATH.
--- NOTE | 2022-08-05 19:13 | NUR ---
RECEIVED REPORT FROM DAY SHIFT NURSE RAVIN FOR CONTINUITY OF CARE. PT AWAKE IN BED. HD ONGOING. FAMILY MEMBER AND DIALYSIS NURSE AT BEDSIDE. PT ON RA, WITH NO DISTRESS NOTED SATTING AT 94%. CALL LIGHT WITHIN REACH. SAFETY PRECAUTIONS IN PLACE. AWAITING FOR RESPONSE FROM DR HOOVER REGARDING [facility].
--- NOTE | 2022-08-05 19:45 | NUR ---
HD DONE. 3.6L OUT.
[2022-08-05] MEDS: MICAFUNGIN SODIUM 100 MG in NACL 0.9% 100 ML IV SCH (20:00)
[2022-08-05] MEDS: hydrALAZINE 20 MG/ML VIAL IVP PRN (20:50)
--- NOTE | 2022-08-05 20:50 | NUR ---
PRN MED FOR BP ADMINISTERED BY KENIA BREWER FOR SBP 190'S. PT ASYMPTOMATIC. DENIES PAIN, DIZZINESS, SOB. PT CLOSELY MONITORED.
--- NOTE | 2022-08-05 21:31 | NUR ---
ADMINISTERED DUE MEDS. NO SLIDING SCALE INSULIN NEEDED AT THIS TIME. PT DENIES PAIN, DIZZINESS, SOB. IV MED GIVEN BY KENIA BREWER.
--- NOTE | 2022-08-05 21:50 | NUR ---
BP RE-ASSESSED. SBP 170'S. DR AZEVEDO MADE AWARE. AWAITING FOR RESPONSE.
--- NOTE | 2022-08-05 22:00 | NUR ---
Patient's Plan of Care was discussed and reviewed with ROSA MARIA GILES
[2022-08-05] MEDS ORDERED: hydrALAZINE 20 MG/ML VIAL IVP SCH (22:25)
--- NOTE | 2022-08-05 22:35 | NUR ---
RECEIVED ORDER FOR HYDRALAZINE IVP 10MG ONCE. NEW ORDER ADMINISTERED BY KENIA BREWER. PT ASYMPTOMATIC.
[2022-08-06] VITALS: BP 194/111
[2022-08-06 04:00] VITALS: BP 156/87
--- NOTE | 2022-08-06 04:05 | NUR ---
V/S TAKEN. PT DENIES PAIN. NO SOB. NO DISTRESS NOTED.
[2022-08-06] MEDS: BLOOD GLUCOSE MONITORING 1 DEV DEV FS SCH ×4 (06:40→20:48)
--- NOTE | 2022-08-06 06:41 | NUR ---
BLOOD SUGAR CHECK DONE. NO SLIDING SCALE INSULIN NEEDED.
--- NOTE | 2022-08-06 07:32 | NUR ---
ENDORSED PT TO DAY SHIFT NURSE PERFECTO FOR CONTINUITY OF CARE. ALL NEEDS MET THROUGHOUT SHIFT. PT IS STABLE.
[2022-08-06 08:00] VITALS: BP 181/94
--- NOTE | 2022-08-06 08:25 | NUR ---
LOC AWAKE AND ALERT VERBALLY RESPONSIVE NO DISTRESS NOTED GOOD CHEST RISE BREATH SOUNDS CLEAR APEX TO MID WITH RALES AT BILATERAL BASES RECEIVED ON ROOM AIR SATURATION 96% HR 89 RR 20
[2022-08-06] MEDS: ECOTRIN 81 MG TABEC PO SCH (09:09)
[2022-08-06] MEDS: VIT-B COMP/VIT-C/FOLIC ACID 1 TAB PO SCH (09:09)
[2022-08-06] MEDS: hydrALAZINE 25 MG TAB PO SCH ×3 (09:10→16:26)
[2022-08-06] MEDS: carvediloL 6.25 MG TAB PO SCH ×2 (09:10→20:54)
[2022-08-06] MEDS: lisinopriL 20 MG TAB PO SCH (09:11)
[2022-08-06] MEDS: PANTOPRAZOLE 40 MG INJ VIAL IVP SCH (09:12)
[2022-08-06] MEDS: guaiFENesin 600 MG TABER PO SCH ×2 (09:15→20:54)
[2022-08-06] MEDS: INSULIN LISPRO SLIDING SCALE 100 UNITS/ML VIAL SUBQ PRN ×3 (11:57→20:53)
[2022-08-06] MEDS: hydrALAZINE 20 MG/ML VIAL IVP PRN ×2 (12:04→22:48)
--- NOTE | 2022-08-06 15:07 | NUR ---
DR. DE SANTIAGO NOTIFIED OF CXR RESULTS. NEW ORDERS FOR ZOSYN AND SPUTUM SAMPLE RECEIVED. PT AWARE, EDUCATION PROVIDED, SPUTUM SAMPLE CUP PLACED AT BEDSIDE.
[2022-08-06 16:00] VITALS: BP 139/88
[2022-08-06] MEDS ORDERED: PIPERACILLIN/TAZOBACTAM 2.25 GM in DEXTROSE 5% 50 ML IV SCH (16:00)
[2022-08-06] MEDS ORDERED: PIPERACILLIN/TAZOBACTAM 3.375 GM in DEXTROSE 5% 50 ML IV SCH (18:00)
--- NOTE | 2022-08-06 18:49 | NUR ---
PATIENT RESTING IN BED, AAO x4, RESPIRATIONS EVEN AND UL ON RA. NO C/O PAIN/DISCOMFORT. NO SIGNIFICANT CHANGES THROUGHOUT SHIFT. ALL NEEDS MET. AT BEDSIDE. SAFETY MEASURES IN PLACE, CALL LIGHT IN REACH. WILL CONT TO MONITOR AND ENDORSE TO PM NURSE.
[2022-08-06] MEDS: ALBUTEROL 0.083% 2.5 MG/3 ML NEBU INH PRN (19:15)
--- NOTE | 2022-08-06 19:17 | NUR ---
RECEIVED REPORT FROM DAY SHIFT NURSE PERFECTO FOR CONTINUITY OF CARE. PT ON 2L NC. NO SOB. SATTING AT 98%. IV SITE NOT FLUSHING, COMPLAINING OF PAIN FROM IV SITE. REMOVED IV CATHETER TIP INTACT. WILL ATTEMPT TO INSERT A NEW IV LINE. INITIAL ASSESSMENT DONE. POC DISCUSSED WITH THE PT AND KENIA GARVEY. FAMILY MEMBER AT BEDSIDE. CALL LIGHT WITHIN REACH. SAFETY PRECAUTIONS IN PLACE.
[2022-08-06 20:00] VITALS: BP 175/98
--- NOTE | 2022-08-06 20:00 | NUR ---
Patient's Plan of Care was discussed and reviewed with ROSA MARIA Recinos.
--- NOTE | 2022-08-06 20:17 | NUR ---
1929 PATIENT FOUND SOB. HHNTX GIVEN.PLACED PT ON 2LNC. PATIENT UNABLE TO GIVE SPUTUM SAMPLE AT THIS TIME.FAMILY AT BED SIDE.CUP LEFT AT BEDSIDE
--- NOTE | 2022-08-06 20:54 | NUR ---
SCHEDULED MEDS ADMINISTERED. SBP 170'S. ASYMPTOMATIC. WILL RE-ASSESS BP.
--- NOTE | 2022-08-06 22:45 | NUR ---
PT COMPLAINING OF SOB. CALLED RT AND PLACED PT ON BIPAP IPAP 12, EPAP 5, RATE 14, FIO2 28%. SATTING AT 99%. SBP AT 180'S HR88, PRN MED FOR BP ADMINISTERED BY KENIA GARVEY. PT CLOSELY MONITORED.
[2022-08-06] MEDS: MICAFUNGIN SODIUM 100 MG in NACL 0.9% 100 ML IV SCH (22:47)
--- NOTE | 2022-08-06 23:01 | NUR ---
2250 NURSED CALLED THAT PATIENT WAS SOB. PLACED PATIENT BACK ON BIPAP TO HELP WITH BREATHING.PLACED ON SETTINGS OF IPAP 12 EPAP 5 AND RR 14 FIO2 28%. PT HAS BEEN ON BIPAP BEFORE. BIPAP ORDER STILL IN PLACE. PATIENT HAS RALES BILAT
[2022-08-07 04:00] VITALS: BP 158/87
--- NOTE | 2022-08-07 04:30 | NUR ---
PT REQUESTED BIPAP TO BE REMOVED. RT CAME TO REMOVE BIPAP AND PLACED PT TO 3L, NC. SATTING AT 99%. PT NO COMPLAINT OF PAIN, NO SOB. NO DISTRESS NOTED.
--- NOTE | 2022-08-07 04:56 | NUR ---
PATIENT WANTED TO BE OFF BIPAP AT THIS TIME.PLACED PT ON 2LNC. BIPAP IS ON STANDBY IF PT BECOMED SOB
[2022-08-07] MEDS: BLOOD GLUCOSE MONITORING 1 DEV DEV FS SCH ×4 (06:41→20:52)
--- NOTE | 2022-08-07 07:20 | NUR ---
RECEIVED REPORT FROM NIGHT NURSE CHANELL FOR CONTINUITY OF CARE. INITIAL ASSESSMENT DONE. DIALYSIS SITE INTACT. IVF INFUSING WELL. CALL LIGHT KEPT WITHIN REACH. WILL CONTINUE TO MONITOR.
--- NOTE | 2022-08-07 07:25 | NUR ---
PT ON 2L NC SLEEPING COMFORTABLY WITH NO DISTRESS. WILL CONTINUE TO MONITOR.
--- NOTE | 2022-08-07 07:39 | NUR ---
GAVE BEDSIDE REPORT TO DAY SHIFT NURSE ROSA MARIA MCBRIDE FOR CONTINUITY OF CARE. PT FOR DIALYSIS TODAY. ENDORSED TO FOLLOW-UP DIALYSIS NURSE FOR HD SCHEDULE AND LAB FOR BLOOD CULTURE SPECIMEN COLLECTION. ALL NEEDS MET THROUGHOUT SHIFT. PT IS STABLE.
[2022-08-07 08:00] VITALS: BP 170/90
[2022-08-07] MEDS: EPOETIN ALFA-EPBX 10,000 UNITS/ML VIAL IV SCH (09:00)
[2022-08-07] MEDS: lisinopriL 20 MG TAB PO SCH (10:09)
[2022-08-07] MEDS: hydrALAZINE 25 MG TAB PO SCH ×3 (10:09→17:12)
[2022-08-07] MEDS: ECOTRIN 81 MG TABEC PO SCH (10:09)
[2022-08-07] MEDS: carvediloL 6.25 MG TAB PO SCH (10:10)
[2022-08-07] MEDS: VIT-B COMP/VIT-C/FOLIC ACID 1 TAB PO SCH (10:10)
--- NOTE | 2022-08-07 10:10 | NUR ---
SCHEDULED MEDICATIONS GIVEN. TOLERATING WELL. WILL CONTINUE TO MONITOR.
[2022-08-07] MEDS: guaiFENesin 600 MG TABER PO SCH ×2 (10:12→20:43)
[2022-08-07] MEDS: PANTOPRAZOLE 40 MG INJ VIAL IVP SCH (10:28)
--- NOTE | 2022-08-07 11:40 | NUR ---
NOTIFIED DR LONG REGARDING PT DON'T HAVE RECENT LAB. AWAITING FOR RESPONSE.
--- NOTE | 2022-08-07 11:49 | NUR ---
RECEIVED NEW ORDER FROM DR. LONG, CBC AND BMP. NOTED AND CARRIED OUT.
--- NOTE | 2022-08-07 12:00 | NUR ---
BS CHECK 140. NO COVERAGE NEEDED.
[2022-08-07 12:49] LABS: BASOPHILS % (AUTO) 0.2 % (0.0-2.0); EOSINOPHILS # (AUTO) 0.2 K/uL (0-0.4); EOSINOPHILS % (AUTO) 1.9 % (0.0-4.0); HEMATOCRIT 22.3 % (36-52); HEMOGLOBIN 7.6 g/dL (12.0-18.0); LYMPHOCYTES # (AUTO) 0.6 K/uL (2.0-11.5); LYMPHOCYTES % (AUTO) 6.4 % (20.5-51.1); MEAN CORPUSCULAR HEMOGLOBIN 30 pg (27-31); MEAN CORPUSCULAR HGB CONC 34 g/dL (33-37); MONOCYTES # (AUTO) 0.5 K/uL (0.8-1.0); MONOCYTES % (AUTO) 5.5 % (1.7-9.3); NEUTROPHILS # (AUTO) 8.4 K/uL (1.8-7.7); PLATELET COUNT (AUTO) 287 K/uL (140-450); RED BLOOD CELL COUNT(AUTO) 2.56 MIL/uL (4.20-6.10); RED CELL DISTRIBUTION WIDTH 15.1 % (11.6-13.7); WHITE BLOOD COUNT (AUTO) 9.7 K/uL (4.8-10.8)
[2022-08-07 12:57] LABS: ANION GAP 10.7 (8-16); CARBON DIOXIDE 29.4 mmol/L (21-32); CREATININE 3.9 mg/dL (0.6-1.3); POTASSIUM 4.1 mmol/L (3.5-5.1)
--- NOTE | 2022-08-07 13:11 | NUR ---
SCHEDULED MEDICATION GIVEN. TOLERATING WELL.
--- NOTE | 2022-08-07 13:32 | NUR ---
HEMODIALYSIS DONE. 4 L REMOVED.
[2022-08-07 16:00] VITALS: BP 173/99
[2022-08-07] MEDS: INSULIN LISPRO SLIDING SCALE 100 UNITS/ML VIAL SUBQ PRN ×2 (17:15→20:54)
--- NOTE | 2022-08-07 17:15 | NUR ---
BS CHECK 200. INSULIN WAS GIVEN PER SLIDING SCALE. SCHEDULED MEDICATION. TOLERATING WELL.
--- NOTE | 2022-08-07 17:43 | NUR ---
INFORMED BY CHARGE NURSE THAT PT IS SCHEDULED FOR TUNNELED PLACEMENT TOMORROW. DR. LONG NOTIFIED, AGREED AND GIVE ORDER NPO AFTER MIDNIGHT. NOTED AND CARRIED OUT. PT MADE AWARE.
--- NOTE | 2022-08-07 19:25 | NUR ---
BEDSIDE REPORT GIVEN TO NIGHT NURSE CHANELL FOR CONTINUITY OF CARE. REMAINS STABLE.
--- NOTE | 2022-08-07 19:26 | NUR ---
RECEIVED REPORT FROM DAY SHIFT NURSE RAE FOR CONTINUITY OF CARE. PT AWAKE SITTING AT BEDSIDE CHAIR. ON 2L NC SATTING AT 97%. FAMILY MEMBER AT BEDSIDE. PT FOR TUNNELED CATHETER PLACEMENT TOMORROW,08/08. NPO AFTER MN, PT AWARE AND NPO SIGN IN PLACE. CALL LIGHT WITHIN REACH. SAFETY PRECAUTIONS IN PLACE.
--- NOTE | 2022-08-07 19:35 | NUR ---
1900 patients sats on room air were 88%. placed pt on 2lnc
[2022-08-07] MEDS: MICAFUNGIN SODIUM 100 MG in NACL 0.9% 100 ML IV SCH (19:56)
--- NOTE | 2022-08-07 19:58 | NUR ---
1954 RN CALLED TO SAY PT WAS SOB. PATIENT ASKED TO BE ON BIPAP. ASSESSED PT AND PT WAS HAVING SOB. PLACED PT ON BIPAP. INCREASED PRESSURE TO IPAP 14 EPAP 5 RR 14 FIO2 28%. PT FEELS BETTER WITH BIPAP ON
[2022-08-07 20:00] VITALS: BP 193/99
--- NOTE | 2022-08-07 20:00 | NUR ---
PT COMPLAINING OF SOB. PT ON 2L NC SATTING AT 98%. CALLED RT. RT PLACED PT ON BIPAP IPAP14, EPAP5, RATE14,O2 28%. PT SATTING 99%. RT AT BEDSIDE.
--- NOTE | 2022-08-07 20:00 | NUR ---
Patient's Plan of Care was discussed and reviewed with nagi CRANE:
[2022-08-07] MEDS: carvediloL 12.5 MG TAB PO SCH (20:43)
--- NOTE | 2022-08-07 20:43 | NUR ---
BP 193/119 HR 107. PT WAS ANXIOUS. COVERING RN MADE AWARE. ADMINISTERED SCHEDULED BP MED. WILL RE-ASSESS BP. PT CLOSELY MONITORED. FAMILY AT BEDSIDE.
[2022-08-07] MEDS: ALBUTEROL 0.083% 2.5 MG/3 ML NEBU INH PRN ×2 (21:00→21:31)
--- NOTE | 2022-08-07 21:07 | NUR ---
DUE MED ADMINISTERED. V/S WITHIN NORMAL LIMITS. PT COMPLIANT, DENIES HEARING VOICES OR HURTING HERSELF OR OTHERS. PT STATED SHE FELT BETTER AND THAT SHE WAS READY AND WANTED TO GO HOME. Addendum: 08/07/22 at 2338 by Jorje Alanis LVN WRONG PT.
[2022-08-07 21:09] VITALS: BP 199/116
--- NOTE | 2022-08-07 21:15 | NUR ---
PT WAS COMPLAINING OF SOB. CALLED RT. RT AT BEDSIDE. RE-ASSESSED BP 204/123 HR 103. PRN HYDRALAZINE ADMINISTERED BY RN.
[2022-08-07] MEDS: hydrALAZINE 20 MG/ML VIAL IVP PRN (21:16)
--- NOTE | 2022-08-07 21:30 | NUR ---
DR LONG MADE AWARE. PT BP 204/123 HR 103. HYDRALAZINE WAS GIVEN. PT WAS ANXIOUS AND VERBALIZES UNABLE TO BREATHE. PT CURRENTLY ON BIPAP SATTING AT 97% AND RT AT BEDSIDE. RECEIVED ORDER TO DO BREATHING TREATMENT-RT MADE AWARE, CHEST XRAY STAT AND IF PT DESATS CALL FOR RAPID RESPONSE.
--- NOTE | 2022-08-07 21:38 | NUR ---
2108 PATIENT BECAME MORE SOB. PT IS ON BIPAP.CHANGED PRESSURE TO IPAP 16. PATIENT VERY ANXIOUS. GAVE INLINE HHNTX. DID NOT IMPROVE. PT BREATH SOUNDS ARE RALES BILAT. WILL CONTINUE TO MONITOR PATIENT
--- NOTE | 2022-08-07 22:50 | NUR ---
DR LONG MADE AWARE OF CHEST XRAY RESULT AND BP 185/97 HR 97 POST HYDRALAZINE. PER MD, MONITOR CLOSELY AND CALL APPLE TURNER DIRECTLY IF CARDIOPULMONARY FUNCTIONS DECLINES.
[2022-08-08 01:28] VITALS: BP 195/99
[2022-08-08 04:00] VITALS: BP 158/79
[2022-08-08 04:12] VITALS: BP 161/83
--- NOTE | 2022-08-08 04:57 | NUR ---
patient wanted to be off bipap at this time. placed pt on 2lnc.pt sats 98% and bs appear clear at this time. bipap will be on standby
--- NOTE | 2022-08-08 05:00 | NUR ---
PT REQUESTED BIPAP TO BE REMOVED. RT WAS CALLED AND PLACED PT TO 2L NC. PT SATTING AT 99%.
[2022-08-08] MEDS: BLOOD GLUCOSE MONITORING 1 DEV DEV FS SCH ×4 (06:31→21:16)
--- NOTE | 2022-08-08 07:23 | NUR ---
ENDORSED PT TO DAY SHIFT NURSE JOHNNY FOR CONTINUITY OF CARE. PT SATTING AT 98% ON 2L NC. NO DISTRESS NOTED. ALL NEEDS MET THROUGHOUT SHIFT.
--- NOTE | 2022-08-08 07:30 | NUR ---
RECEIVED REPORT FROM [facility] NURSECHANELL AND STATES TUNNELED CATH PLACEMENT CANCELLED. PT A/O X3. CZECH SPEAKING. NO SOB NOTED. ON 2L NC WITH O2 SATURATION @ 98%. DENIES PAIN AT THIS TIME. L IJ DRESSING C/D/I. NPO. WILL CONTACT FOR DIET ORDER. BSC/URINAL WITHIN REACH. #22 SL. NEEDS ALL MET AT THIS TIME. ALL SAFETY MEASURES IN PLACE.
[2022-08-08 08:00] VITALS: BP 167/85
--- NOTE | 2022-08-08 08:00 | NUR ---
TRIED TO PUT PT ON ROOM AIR FROM 2L NC. PT REFUSED AND WANTED TO KEEP OXYGEN ON. RN AWARE NO DISTRESS NOTED. WILL CONTINUE TO MONITOR PT. HR 81 SPO2 98% ON 2L NC.
--- NOTE | 2022-08-08 08:00 | NUR ---
DR. MOODY ORDER FOR BMP AND PHOS. ORDERS INPUTTED. Addendum: 08/08/22 at 1137 by Jack Carrasco RN RN WRONG TIME
--- NOTE | 2022-08-08 08:01 | NUR ---
CONTACTED REGARDING ORDERS FOR AM LABS. ORDER BMP AND PHOS. ORDERS INPUTTED. CONTACTED DR. COMBS FOR DIET ORDERS. AWAITING REPLY. Addendum: 08/08/22 at 1131 by Agency Nurse, KENIA AQUINO CONTACTED REGARDING ORDERS FOR AM LABS. ORDER BMP AND PHOS. ORDERS INPUTTED. CONTACTED DR. LONG FOR DIET ORDERS. AWAITING REPLY.
--- NOTE | 2022-08-08 08:03 | NUR ---
DR. MOODY ORDER FOR BMP AND PHOS. ORDERS INPUTTED.
[2022-08-08] MEDS: PANTOPRAZOLE 40 MG INJ VIAL IVP SCH (09:00)
--- NOTE | 2022-08-08 09:00 | NUR ---
HD STARTED AT BEDSIDE.
[2022-08-08] MEDS: lisinopriL 20 MG TAB PO SCH (09:01)
[2022-08-08] MEDS: carvediloL 12.5 MG TAB PO SCH ×2 (09:01→21:00)
[2022-08-08] MEDS: hydrALAZINE 25 MG TAB PO SCH ×3 (09:01→16:28)
[2022-08-08] MEDS: VIT-B COMP/VIT-C/FOLIC ACID 1 TAB PO SCH (09:01)
[2022-08-08] MEDS: guaiFENesin 600 MG TABER PO SCH ×2 (09:01→21:00)
[2022-08-08] MEDS: ECOTRIN 81 MG TABEC PO SCH (09:01)
[2022-08-08 10:46] LABS: ANION GAP 13.3 (8-16); CARBON DIOXIDE 27.9 mmol/L (21-32); POTASSIUM 4.2 mmol/L (3.5-5.1)
[2022-08-08 10:54] LABS: CREATININE 5.1 mg/dL (0.6-1.3)
--- NOTE | 2022-08-08 11:30 | NUR ---
HD COMPLETED WITH 2.6L OUT.
--- NOTE | 2022-08-08 12:00 | NUR ---
MD ORDER FOR RENAL DIET. LEFT A MESSAGE TO DIETARY TO DELIVER TRAY.
[2022-08-08 16:00] VITALS: BP 154/80
[2022-08-08] MEDS: INSULIN LISPRO SLIDING SCALE 100 UNITS/ML VIAL SUBQ PRN ×2 (16:27→21:16)
--- NOTE | 2022-08-08 19:28 | NUR ---
REPORT GIVEN TO NIGHTSHIFT NURSESHEREEN FOR CONTINUITY OF CARE.
--- NOTE | 2022-08-08 19:30 | NUR ---
RECEIVED REPORT FROM DAY SHIFT NURSE FOR CONTINUITY OF CARE. PATIENT AWAKE, ALERT AND ORIENTED. ON 2L O2 VIA NC SATING 95%. NO SOB NOTED. CALL LIGHT IN REACH. DENIES PAIN. SAFETY PRECAUTIONS ARE IN PLACE.
[2022-08-08] MEDS: MICAFUNGIN SODIUM 100 MG in NACL 0.9% 100 ML IV SCH (20:48)
--- NOTE | 2022-08-08 21:00 | NUR ---
ALL SCHEDULED MEDICATIONS DUE GIVEN. WELL TOLERATED.
--- NOTE | 2022-08-08 21:16 | NUR ---
CHECKED BLOOD SUGAR WAS 207. ADMINISTERED HUMALOG INSULIN ORDERED PER SLIDING SCALE.
[2022-08-08] MEDS: hydrALAZINE 20 MG/ML VIAL IVP PRN (21:35)
--- NOTE | 2022-08-08 22:00 | NUR ---
Pt refusing NOC NIV at this time will continue to monitor and return at a later time to attempt to initiate NOC NIV once more
[2022-08-09] VITALS: BP 182/103
[2022-08-09] MEDS: ACETAMINOPHEN 325 MG TAB PO PRN (02:36)
--- NOTE | 2022-08-09 02:36 | NUR ---
PATIENT COMPLAINED OF HEADACHE, MEDICATED WITH TYLENOL PRN.
[2022-08-09] MEDS: BLOOD GLUCOSE MONITORING 1 DEV DEV FS SCH ×4 (06:51→20:30)
--- NOTE | 2022-08-09 07:06 | NUR ---
GAVE REPORT TO MORNING RN JOHNNY FOR CONTINUITY OF CARE.
--- NOTE | 2022-08-09 07:30 | NUR ---
RECEIVED REPORT FROM NIGHTSCOFT NURSE. PT A/O X3. SETSWANA SPEAKING. DENIES PAIN. HOB ELEVATED. NO SOB NOTED. ON 2L NC WITH O2 SATURATION @ 96%. DENIES PAIN AT THIS TIME. L IJ DRESSING C/D/I. RENAL DIET. #22 SL. NEEDS ALL MET AT THIS TIME. ALL SAFETY MEASURES IN PLACE.
[2022-08-09] MEDS: ALBUTEROL 0.083% 2.5 MG/3 ML NEBU INH PRN ×2 (07:54→19:21)
[2022-08-09 08:00] VITALS: BP 169/87
[2022-08-09] MEDS: VIT-B COMP/VIT-C/FOLIC ACID 1 TAB PO SCH (08:28)
[2022-08-09] MEDS: PANTOPRAZOLE 40 MG INJ VIAL IVP SCH (08:28)
[2022-08-09] MEDS: ECOTRIN 81 MG TABEC PO SCH (08:28)
[2022-08-09] MEDS: lisinopriL 20 MG TAB PO SCH (08:28)
[2022-08-09] MEDS: EPOETIN ALFA-EPBX 10,000 UNITS/ML VIAL IV SCH (08:28)
[2022-08-09] MEDS: carvediloL 12.5 MG TAB PO SCH ×2 (08:29→20:30)
[2022-08-09] MEDS: guaiFENesin 600 MG TABER PO SCH ×2 (08:29→20:29)
[2022-08-09] MEDS: hydrALAZINE 25 MG TAB PO SCH ×3 (08:30→16:12)
--- NOTE | 2022-08-09 09:30 | NUR ---
PT TOOK NC OFF AND REFUSE NC. O2 SATURATION @ 92%. IN NO ACUTE DISTRESS AT THIS TIME. ALL SAFETY MEASURES IN PLACE.
--- NOTE | 2022-08-09 11:00 | NUR ---
PT WITH O2 SATURATION @ 89%. RECONNECTED PT ON 2L NC. O2 SATURATION @ 98%. HOB ELEVATED. AT BEDSIDE. NEEDS ALL MET AT THIS TIME. ALL SAFETY MEASURES IN PLACE.
[2022-08-09] MEDS: INSULIN LISPRO SLIDING SCALE 100 UNITS/ML VIAL SUBQ PRN ×3 (11:04→20:31)
[2022-08-09] MEDS: AZITHROMYCIN 250 MG in DEXTROSE 5% 250 ML IV SCH (11:45)
[2022-08-09 16:00] VITALS: BP 162/87
--- NOTE | 2022-08-09 19:25 | NUR ---
REPORT GIVEN TO NIGHTSMTFT NURSECHANELL FOR CONTINUITY OF CARE.
--- NOTE | 2022-08-09 19:26 | NUR ---
RECEIVED REPORT FROM DAY SHIFT NURSE JOHNNY FOR CONTINUITY OF CARE. PT AWAKE WITH SON AND AT BEDSIDE. PT SATTING AT 98% ON 2L NC. DENIES PAIN. LIJ HD CATH, INTACT. POC DISCUSSED WITH THE PT AND RN CARYL. CALL LIGHT WITHIN REACH. SAFETY PRECAUTIONS IN PLACE.
[2022-08-09 20:00] VITALS: BP 160/84
--- NOTE | 2022-08-09 20:00 | NUR ---
Patient's Plan of Care was discussed and reviewed with nagi CRANE:
--- NOTE | 2022-08-09 20:22 | NUR ---
spoke with dr. alcantar, informed no urine output since last straight cath done at 1300. ordered to insert sanz catheter. will carry out as ordered. Addendum: 08/09/22 at 2023 by Thalia Vu RN wrong patient.
[2022-08-09] MEDS: MICAFUNGIN SODIUM 100 MG in NACL 0.9% 100 ML IV SCH (20:29)
--- NOTE | 2022-08-09 20:29 | NUR ---
ADMINISTERED DUE MEDS. PT TOLERATED WELL.
[2022-08-10 04:00] VITALS: BP 158/89
[2022-08-10] MEDS: ACETAMINOPHEN 325 MG TAB PO PRN (04:50)
--- NOTE | 2022-08-10 04:57 | NUR ---
PT COMPLAINED OF MCKEON 3/10. PRN PAIN MED ADMINISTERED.
[2022-08-10] MEDS: INSULIN LISPRO SLIDING SCALE 100 UNITS/ML VIAL SUBQ PRN ×4 (06:33→21:19)
[2022-08-10] MEDS: BLOOD GLUCOSE MONITORING 1 DEV DEV FS SCH ×4 (06:33→21:18)
--- NOTE | 2022-08-10 07:42 | NUR ---
GAVE BEDSIDE REPORT TO DAY SHIFT NURSE ADZE FOR CONTINUITY OF CARE. ALL NEEDS MET THROUGHOUT SHIFT. PT IS STABLE.
[2022-08-10] MEDS: PANTOPRAZOLE 40 MG INJ VIAL IVP SCH (09:12)
[2022-08-10] MEDS: guaiFENesin 600 MG TABER PO SCH ×2 (09:12→21:16)
[2022-08-10] MEDS: VIT-B COMP/VIT-C/FOLIC ACID 1 TAB PO SCH (09:12)
--- NOTE | 2022-08-10 11:50 | NUR ---
RECEIVED PT IN BED GEN BODY SWELLING +4 EDEMA PITTING MARBELLA ARMS MARBELLA LEGS SCROTOM AND ABDOMEN DR CANELA IN AND AT BEDSIDE WITH ORDER TO INSERT IRWIN CATHTER NOTED AND CARRIED OUT WITH YELLOW URINE 200ML OUT PUT PT GIVEN BED BATH AND DUE FOR HD TODAY
[2022-08-10 12:15] LABS: BASOPHILS # (AUTO) 0.1 K/uL (0.00-0.22); BASOPHILS % (AUTO) 1.4 % (0.0-2.0); EOSINOPHILS # (AUTO) 0.1 K/uL (0-0.4); EOSINOPHILS % (AUTO) 1.5 % (0.0-4.0); HEMOGLOBIN 7.7 g/dL (12.0-18.0); LYMPHOCYTES # (AUTO) 1.1 K/uL (2.0-11.5); LYMPHOCYTES % (AUTO) 12.2 % (20.5-51.1); MEAN CORPUSCULAR HEMOGLOBIN 29 pg (27-31); MEAN CORPUSCULAR HGB CONC 33 g/dL (33-37); MEAN CORPUSCULAR VOLUME 88.2 fL (80-94); MONOCYTES # (AUTO) 0.6 K/uL (0.8-1.0); MONOCYTES % (AUTO) 6.7 % (1.7-9.3); NEUTROPHILS # (AUTO) 6.9 K/uL (1.8-7.7); NEUTROPHILS % (AUTO) 78.2 % (42.2-75.2); PLATELET COUNT (AUTO) 376 K/uL (140-450); RED BLOOD CELL COUNT(AUTO) 2.61 MIL/uL (4.20-6.10); RED CELL DISTRIBUTION WIDTH 15.4 % (11.6-13.7); WHITE BLOOD COUNT (AUTO) 8.8 K/uL (4.8-10.8)
[2022-08-10 12:23] LABS: ANION GAP 13.5 (8-16); CARBON DIOXIDE 26.2 mmol/L (21-32); POTASSIUM 4.7 mmol/L (3.5-5.1)
[2022-08-10 12:30] LABS: CREATININE 6.8 mg/dL (0.6-1.3)
[2022-08-10] MEDS: AZITHROMYCIN 250 MG in DEXTROSE 5% 250 ML IV SCH (13:30)
[2022-08-10] MEDS: ECOTRIN 81 MG TABEC PO SCH (14:59)
[2022-08-10] MEDS: carvediloL 12.5 MG TAB PO SCH ×2 (14:59→21:16)
[2022-08-10] MEDS: lisinopriL 20 MG TAB PO SCH (14:59)
[2022-08-10] MEDS: hydrALAZINE 25 MG TAB PO SCH ×3 (15:00→17:48)
[2022-08-10 16:00] VITALS: BP 167/75
[2022-08-10] MEDS: hydrALAZINE 20 MG/ML VIAL IVP PRN (17:10)
[2022-08-10 20:00] VITALS: BP 151/77
[2022-08-10] MEDS: MICAFUNGIN SODIUM 100 MG in NACL 0.9% 100 ML IV SCH (20:00)
--- NOTE | 2022-08-10 20:00 | NUR ---
Patient's Plan of Care was discussed and reviewed with LORI CRANE:
--- NOTE | 2022-08-10 20:07 | NUR ---
RECEIVED REPORT FROM KEREN AQUINO (REGISTRY), PATIENT WAS IN STABLE CONDITION DURING REPORT. PATIENT WAS ALERT AND ORIENTED X 4 BUT INDONESIAN SPEAKER. FAMILY NOTED AT BEDSIDE, DAUGHTER AND . PATIENT DENIED ANY PAIN AT THIS TIME. PATIENT IS ON 2 LITERS OF OXYGEN NASAL CANULA. NO NOTED RESPIRATORY DISTRESS. CHEST IS RISING AND FALLING WITHOUT INCIDENT. NOTED SWELLING TO ALL EXTREMITIES. MD ARE AWARE OF THE EDEMA. SIDE RAILS UP X 3. CALL LIGHT IN REACH. [email or web address]
[2022-08-10] MEDS: ALBUTEROL 0.083% 2.5 MG/3 ML NEBU INH PRN (20:31)
--- NOTE | 2022-08-10 23:45 | NUR ---
PATIENT IN BED ASLEEP. NO S/S OF DISTRESS. BREATHING EVEN AND UNLABORED. NO S/S OF PAIN/DISCOMFORT. CALL LIGHT WITHIN REACH. [email or web address]
--- NOTE | 2022-08-11 01:33 | NUR ---
PATIENT IN BED SLEEPING WITHOUT INCIDENT. NO S/S OF PAIN/DISCOMFORT. NO S/S OF RESPIRATORY DISTRESS. [email or web address]
[2022-08-11] MEDS: ACETAMINOPHEN 325 MG TAB PO PRN (03:14)
--- NOTE | 2022-08-11 03:19 | NUR ---
PATIENT REQUESTED PAIN MEDICATION FOR HEADACHE. NURSING REPORTED BLOOD PRESSURE OF 182/96 TO COVERING RN. [email or web address]
[2022-08-11] MEDS: hydrALAZINE 20 MG/ML VIAL IVP PRN ×5 (03:24→04:38)
[2022-08-11 04:00] VITALS: BP 182/96
--- NOTE | 2022-08-11 05:00 | NUR ---
BLOOD PRESSURE CAME DOWN, NO NOTED SIDE EFFECTS. [email or web address]
[2022-08-11] MEDS: BLOOD GLUCOSE MONITORING 1 DEV DEV FS SCH ×4 (06:34→21:52)
--- NOTE | 2022-08-11 07:17 | NUR ---
ENDORSED PATIENT TO KO AQUINO, PATIENT WAS STABLE AT THIS TIME. [email or web address] Addendum: 08/11/22 at 0725 by Eli Serna LVN ENDORSED PATIENT TO ISAIAH AQUINO, PATIENT WAS STABLE DURING SHIFT REPORT. [email or web address]
[2022-08-11 08:00] VITALS: BP 171/91
[2022-08-11] MEDS: PANTOPRAZOLE 40 MG INJ VIAL IVP SCH (09:57)
[2022-08-11] MEDS: ECOTRIN 81 MG TABEC PO SCH (09:57)
[2022-08-11] MEDS: carvediloL 12.5 MG TAB PO SCH ×2 (09:57→21:52)
[2022-08-11] MEDS: hydrALAZINE 25 MG TAB PO SCH ×3 (09:58→16:50)
[2022-08-11] MEDS: VIT-B COMP/VIT-C/FOLIC ACID 1 TAB PO SCH (09:58)
[2022-08-11] MEDS: guaiFENesin 600 MG TABER PO SCH ×2 (09:58→21:52)
[2022-08-11] MEDS: lisinopriL 20 MG TAB PO SCH (09:59)
[2022-08-11] MEDS: EPOETIN ALFA-EPBX 10,000 UNITS/ML VIAL IV SCH (10:07)
[2022-08-11] MEDS: AZITHROMYCIN 250 MG in DEXTROSE 5% 250 ML IV SCH (11:56)
[2022-08-11] MEDS: INSULIN LISPRO SLIDING SCALE 100 UNITS/ML VIAL SUBQ PRN ×2 (11:57→18:23)
[2022-08-11 16:00] VITALS: BP 160/95
--- NOTE | 2022-08-11 19:49 | NUR ---
RECEIVED FROM JAQUELINE RN (REGISTRY), PATIENT WAS FATIGUE FROM DE-ESCALATION OF OXYGEN. FAMILY AT BEDSIDE. PATIENT ALERT AND ORIENT X 4. PATIENT KEPT CLEAN AND DRY. NEEDS WERE MET. NO NOTED PAIN/DISCOMFORT. NO NOTED RESPIRATORY DISTRESS. SIDE RAILS UP X 3 FOR SAFETY AND ADJUSTMENT. CALL LIGHT IN REACH FOR ASSISTANCE. PATIENT HAD DIALYSIS TODAY AND IT WAS REPORTED 5 LITERS WAS REMOVED. [email or web address]
[2022-08-11 20:00] VITALS: BP 176/99
[2022-08-11] MEDS: MICAFUNGIN SODIUM 100 MG in NACL 0.9% 100 ML IV SCH (20:00)
--- NOTE | 2022-08-11 20:00 | NUR ---
Patient's Plan of Care was discussed and reviewed with LORI CRANE:
--- NOTE | 2022-08-12 01:15 | NUR ---
PATIENT IN BED ASLEEP. NO NOTED S/S OF PAIN/DISCOMFORT. NO NOTED DESATURATION WHILE SLEEPING. CALL LIGHT IN REACH FOR ALL ASSISTANCE. [email or web address]
[2022-08-12 04:00] VITALS: BP 180/100
[2022-08-12] MEDS: hydrALAZINE 20 MG/ML VIAL IVP PRN ×2 (04:57→15:36)
--- NOTE | 2022-08-12 04:57 | NUR ---
PATIENT COMPLAINED OF HEADACHE TYLENOL AND BLOOD PRESSURE MEDICATION GIVEN TO ASSIST AND GIVE RELIEF. [email or web address]
[2022-08-12] MEDS: ACETAMINOPHEN 325 MG TAB PO PRN (05:19)
[2022-08-12] MEDS: BLOOD GLUCOSE MONITORING 1 DEV DEV FS SCH ×4 (06:54→20:41)
--- NOTE | 2022-08-12 07:08 | NUR ---
ENDORSED PATIENT TO SEELNA RN (REGISTRY), PATIENT WAS STABLE AT THIS TIME. [email or web address]
--- NOTE | 2022-08-12 07:26 | NUR ---
receive the patinet from the lieutenant shift supervisor rn in rm [id number] admitting diagnosis of acute kidney injury . will continue to monitor
--- NOTE | 2022-08-12 08:20 | NUR ---
RECEIVED ON SUPPLEMENTAL OXYGEN AT 3 LPM VIA NC SATURATION 100% POST HHN THERAPY TITRATED FIO2 TO 2LPM SELENA/BEEF SPECIALIST NOTIFIED
[2022-08-12] MEDS: VIT-B COMP/VIT-C/FOLIC ACID 1 TAB PO SCH (09:35)
[2022-08-12] MEDS: lisinopriL 20 MG TAB PO SCH (09:35)
[2022-08-12] MEDS: carvediloL 12.5 MG TAB PO SCH ×2 (09:35→20:20)
[2022-08-12] MEDS: ECOTRIN 81 MG TABEC PO SCH (09:35)
[2022-08-12] MEDS: guaiFENesin 600 MG TABER PO SCH ×2 (09:35→20:20)
[2022-08-12] MEDS: ALBUTEROL 0.083% 2.5 MG/3 ML NEBU INH PRN (09:36)
[2022-08-12] MEDS: PANTOPRAZOLE 40 MG INJ VIAL IVP SCH (09:36)
[2022-08-12] MEDS: hydrALAZINE 25 MG TAB PO SCH ×3 (09:36→17:55)
--- NOTE | 2022-08-12 11:45 | NUR ---
patient started with hemodialysis . ended at 14:45 pm 4 .2 liters out , bp 190/106
[2022-08-12] MEDS: INSULIN LISPRO SLIDING SCALE 100 UNITS/ML VIAL SUBQ PRN ×3 (12:52→20:42)
--- NOTE | 2022-08-12 15:30 | NUR ---
haydralize has been given for hypertension bp 199/178 . will continue to monitor
--- NOTE | 2022-08-12 18:22 | NUR ---
will endorse to rn shift mgr rn for continuity of care
--- NOTE | 2022-08-12 19:25 | NUR ---
RECEIVED REPORT FROM AM SHIFT NURSE TINA FOR CONTINUITY OF CARE. PATIENT IN BED AWAKE, ALERT WELL RESTED, ON ROOM AIR. NO SOB NOTED. NO COMPLAINTS OF PAIN AT THIS TIME. FAMILY MEMBER AT BEDSIDE. IV SITE ON THE LEFT HAND INTACT AND PATENT. CALL LIGHT WITHIN REACH. SAFETY MEASURES IN PLACE.
[2022-08-12] MEDS: MICAFUNGIN SODIUM 100 MG in NACL 0.9% 100 ML IV SCH (20:10)
--- NOTE | 2022-08-12 20:10 | NUR ---
ALL SCHEDULED MEDICATIONS DUE ADMINISTERED.
[2022-08-13] VITALS: BP 193/110
[2022-08-13] MEDS: hydrALAZINE 20 MG/ML VIAL IVP PRN ×2 (02:55→23:56)
--- NOTE | 2022-08-13 03:28 | NUR ---
PATIENT IV LINE DISLODGED. INSERTED A NEW IV LINE ON THE LEFT FOREARM WITH GOOD RETURN OF BLOOD. TOLERATED WELL.
--- NOTE | 2022-08-13 05:10 | NUR ---
PATIENT ON BIPAP AT OO15 AND OFF AT 0510. ON 3L O2 VIA NC SATING 97%
[2022-08-13] MEDS: BLOOD GLUCOSE MONITORING 1 DEV DEV FS SCH ×4 (07:09→20:42)
--- NOTE | 2022-08-13 07:09 | NUR ---
BLOOD SUGAR CHECKED WAS 106, NO INSULIN COVERAGE NEEDED.
--- NOTE | 2022-08-13 07:35 | NUR ---
GAVE REPORT TO DAY SHIFT NURSE FOR CONTINUITY OF CARE.
[2022-08-13 08:00] VITALS: BP 178/96
[2022-08-13] MEDS: PANTOPRAZOLE 40 MG INJ VIAL IVP SCH (08:33)
[2022-08-13] MEDS: hydrALAZINE 25 MG TAB PO SCH ×3 (08:35→17:54)
[2022-08-13] MEDS: ECOTRIN 81 MG TABEC PO SCH (08:38)
[2022-08-13] MEDS: carvediloL 12.5 MG TAB PO SCH ×2 (08:39→20:31)
[2022-08-13] MEDS: guaiFENesin 600 MG TABER PO SCH ×2 (08:40→20:31)
[2022-08-13] MEDS: VIT-B COMP/VIT-C/FOLIC ACID 1 TAB PO SCH (08:40)
[2022-08-13] MEDS: lisinopriL 20 MG TAB PO SCH (08:41)
[2022-08-13] MEDS: INSULIN LISPRO SLIDING SCALE 100 UNITS/ML VIAL SUBQ PRN ×2 (13:31→16:24)
[2022-08-13 16:00] VITALS: BP 152/76
--- NOTE | 2022-08-13 19:58 | NUR ---
PATIENT AWAKE ALERT AND ORIENTED. NO DISTRESS. PATIENT IS SATING 89% ON ROOM AIR, PUT BACK ON 3L NC SATING 100%. AND DAUGHTER AT BEDSIDE. DENIES PAIN. PT ABLE TO COMMUNICATE WITH HIS NEEDS. CALL LIGHT WITHIN REACH.
[2022-08-13] MEDS: MICAFUNGIN SODIUM 100 MG in NACL 0.9% 100 ML IV SCH (20:30)
--- NOTE | 2022-08-13 20:42 | NUR ---
ADMINISTERED SCHEDULED DUE MEDICATIONS.
[2022-08-14] VITALS: BP 175/94
[2022-08-14] MEDS: ACETAMINOPHEN 325 MG TAB PO PRN (05:16)
--- NOTE | 2022-08-14 05:16 | NUR ---
PATIENT COMPLAINED OF HEADACHE , MEDICATED.
[2022-08-14 06:23] LABS: BASOPHILS # (AUTO) 0.1 K/uL (0.00-0.22); BASOPHILS % (AUTO) 1.2 % (0.0-2.0); EOSINOPHILS # (AUTO) 0.1 K/uL (0-0.4); EOSINOPHILS % (AUTO) 1.1 % (0.0-4.0); HEMATOCRIT 22.5 % (36-52); HEMOGLOBIN 7.5 g/dL (12.0-18.0); LYMPHOCYTES # (AUTO) 1.3 K/uL (2.0-11.5); LYMPHOCYTES % (AUTO) 13.5 % (20.5-51.1); MEAN CORPUSCULAR HEMOGLOBIN 30 pg (27-31); MEAN CORPUSCULAR HGB CONC 34 g/dL (33-37); MEAN CORPUSCULAR VOLUME 89.6 fL (80-94); MONOCYTES # (AUTO) 0.8 K/uL (0.8-1.0); MONOCYTES % (AUTO) 8.5 % (1.7-9.3); NEUTROPHILS # (AUTO) 7.2 K/uL (1.8-7.7); NEUTROPHILS % (AUTO) 75.7 % (42.2-75.2); PLATELET COUNT (AUTO) 284 K/uL (140-450); RED BLOOD CELL COUNT(AUTO) 2.51 MIL/uL (4.20-6.10); RED CELL DISTRIBUTION WIDTH 16.8 % (11.6-13.7); WHITE BLOOD COUNT (AUTO) 9.5 K/uL (4.8-10.8)
[2022-08-14] MEDS: BLOOD GLUCOSE MONITORING 1 DEV DEV FS SCH ×4 (06:36→20:41)
[2022-08-14 06:42] LABS: ANION GAP 14.2 (8-16); CARBON DIOXIDE 25.5 mmol/L (21-32); POTASSIUM 4.7 mmol/L (3.5-5.1)
--- NOTE | 2022-08-14 06:45 | NUR ---
RECEIVED A CALL FROM LAB REPORTING CRITICAL LAB VALUE CREATININE 5.7. PATIENT IS A DIALYSIS PT AND IS SCHEDULED FOR DIALYSIS TODAY.
[2022-08-14 06:46] LABS: CREATININE 5.7 mg/dL (0.6-1.3)
--- NOTE | 2022-08-14 07:20 | NUR ---
RECEIVED REPORT FROM LINING CUTTER NURSE FOR CONTINUITY OF CARE. PT IS STABLE AT THIS TIME.
--- NOTE | 2022-08-14 07:25 | NUR ---
GAVE REPORT TO MORNING SHIFT NURSE FOR CONTINUITY OF CARE.
[2022-08-14 08:00] VITALS: BP 144/73
[2022-08-14] MEDS: EPOETIN ALFA-EPBX 10,000 UNITS/ML VIAL IV SCH (09:00)
[2022-08-14] MEDS: lisinopriL 20 MG TAB PO SCH (09:00)
[2022-08-14] MEDS: PANTOPRAZOLE 40 MG INJ VIAL IVP SCH (09:00)
[2022-08-14] MEDS: hydrALAZINE 25 MG TAB PO SCH ×3 (09:00→17:03)
[2022-08-14] MEDS: VIT-B COMP/VIT-C/FOLIC ACID 1 TAB PO SCH (09:00)
[2022-08-14] MEDS: carvediloL 12.5 MG TAB PO SCH ×2 (09:00→20:33)
[2022-08-14] MEDS: ECOTRIN 81 MG TABEC PO SCH (09:00)
[2022-08-14] MEDS: guaiFENesin 600 MG TABER PO SCH ×2 (09:00→20:33)
[2022-08-14] MEDS: INSULIN LISPRO SLIDING SCALE 100 UNITS/ML VIAL SUBQ PRN ×3 (12:03→20:42)
[2022-08-14] MEDS: hydrALAZINE 20 MG/ML VIAL IVP PRN (13:31)
[2022-08-14 16:00] VITALS: BP 174/90
--- NOTE | 2022-08-14 19:15 | NUR ---
ENDORSED PT TO STEAM PLANT RECORDS CLERK NURSE FOR CONTINUITY OF CARE. PT STABLE AT THIS TIME.
[2022-08-14] MEDS: MICAFUNGIN SODIUM 100 MG in NACL 0.9% 100 ML IV SCH (20:32)
[2022-08-15] VITALS: BP 174/92
[2022-08-15] MEDS: hydrALAZINE 20 MG/ML VIAL IVP PRN (00:49)
[2022-08-15] MEDS: ACETAMINOPHEN 325 MG TAB PO PRN ×2 (01:47→20:06)
[2022-08-15] MEDS: BLOOD GLUCOSE MONITORING 1 DEV DEV FS SCH ×4 (06:48→20:15)
--- NOTE | 2022-08-15 06:49 | NUR ---
CHECKED BLOOD SUGAR WAS 103. NO INSULIN NEEDED.
--- NOTE | 2022-08-15 06:57 | NUR ---
PATIENT IS ALERT AND ORIENTED. ON 3L O2 VIA NC TOLERATING WELL SATING 98%. NO SOB. IRWIN CATHETER DRAINING CLEAR YELLOW URINE. AFEBRILE. NIGHT MEDICATIONS ADMINISTERED. CALL LIGHT WITHIN REACH. COMPLAINED OF HEADACHE X1 DURING THE SHIFT, MEDICATED WITH TYLENOL AND WAS EFFECTIVE. WILL ENDORSE TO THE NEXT SHIFT.
--- NOTE | 2022-08-15 07:20 | NUR ---
RECEIVED REPORT FROM MILL STENCILER NURSE FOR CONTINUITY OF CARE. PT IS STABLE AT THIS TIME.
[2022-08-15 08:00] VITALS: BP 196/117
[2022-08-15] MEDS: PANTOPRAZOLE 40 MG INJ VIAL IVP SCH (09:28)
[2022-08-15] MEDS: carvediloL 12.5 MG TAB PO SCH ×2 (09:29→20:06)
[2022-08-15] MEDS: ECOTRIN 81 MG TABEC PO SCH (09:29)
[2022-08-15] MEDS: hydrALAZINE 25 MG TAB PO SCH ×3 (09:29→16:09)
[2022-08-15] MEDS: guaiFENesin 600 MG TABER PO SCH ×2 (09:30→20:06)
[2022-08-15] MEDS: VIT-B COMP/VIT-C/FOLIC ACID 1 TAB PO SCH (09:30)
[2022-08-15] MEDS: lisinopriL 20 MG TAB PO SCH (09:33)
[2022-08-15 10:40] LABS: BASOPHILS # (AUTO) 0.1 K/uL (0.00-0.22); BASOPHILS % (AUTO) 1.2 % (0.0-2.0); EOSINOPHILS # (AUTO) 0.1 K/uL (0-0.4); HEMOGLOBIN 7.7 g/dL (12.0-18.0); LYMPHOCYTES # (AUTO) 0.9 K/uL (2.0-11.5); LYMPHOCYTES % (AUTO) 12.7 % (20.5-51.1); MEAN CORPUSCULAR HEMOGLOBIN 30 pg (27-31); MEAN CORPUSCULAR HGB CONC 34 g/dL (33-37); MEAN CORPUSCULAR VOLUME 90.4 fL (80-94); MONOCYTES # (AUTO) 0.6 K/uL (0.8-1.0); MONOCYTES % (AUTO) 7.9 % (1.7-9.3); NEUTROPHILS # (AUTO) 5.8 K/uL (1.8-7.7); NEUTROPHILS % (AUTO) 77.2 % (42.2-75.2); PLATELET COUNT (AUTO) 272 K/uL (140-450); RED BLOOD CELL COUNT(AUTO) 2.54 MIL/uL (4.20-6.10); RED CELL DISTRIBUTION WIDTH 17.2 % (11.6-13.7); WHITE BLOOD COUNT (AUTO) 7.5 K/uL (4.8-10.8)
[2022-08-15 10:53] LABS: ANION GAP 13.5 (8-16); CARBON DIOXIDE 24.6 mmol/L (21-32); POTASSIUM 4.1 mmol/L (3.5-5.1)
[2022-08-15] MEDS: INSULIN LISPRO SLIDING SCALE 100 UNITS/ML VIAL SUBQ PRN ×2 (11:57→20:16)
[2022-08-15 16:00] VITALS: BP 183/103
--- NOTE | 2022-08-15 19:05 | NUR ---
RECEIVED REPORT FROM AUTOMOTIVE DESIGNER NURSE FOR CONTINUITY OF CARE. PT IS STABLE AT THIS TIME. Addendum: 08/15/22 at 1929 by Vivi Palacios RN ENDORSED PT TO AUTOMOTIVE DESIGNER NURSE FOR CONTINUITY OF CARE. PT STABLE AT THIS TIME.
--- NOTE | 2022-08-15 19:15 | NUR ---
RECEIVED PT IN BED SITTING ON THE BED, FAMILY MEMBERS AT THE BEDSIDE. DENIES PAIN. DENIES SHORTNESS OF BREATH. SKIN WARM AND DRY TO TOUCH. SAFETY PRECAUTIONS IN PLACE, CALL LIGHT IN REACH.
[2022-08-15] MEDS: MICAFUNGIN SODIUM 100 MG in NACL 0.9% 100 ML IV SCH (19:31)
[2022-08-15 20:00] VITALS: BP 175/94
--- NOTE | 2022-08-15 20:06 | NUR ---
TEMP-100.2 TYLENOL GIVEN ORDERED, COOLING MEASURES STARTED, REMOVED SOME OF THE BLANKETS.
[2022-08-16] VITALS: BP 156/82
[2022-08-16] MEDS: ACETAMINOPHEN 325 MG TAB PO PRN ×2 (01:51→10:06)
--- NOTE | 2022-08-16 06:27 | NUR ---
PT IS ASLEEP. NO ACUTE RESPIRATORY DISTRESS. ALL NEEDS ATTENDED TO. SAFETY PRECAUTIONS MAINTAINED DURING THE SHIFT, CALL LIGHT PLACED WITHIN REACH.
[2022-08-16] MEDS: INSULIN LISPRO SLIDING SCALE 100 UNITS/ML VIAL SUBQ PRN ×3 (06:35→20:50)
[2022-08-16] MEDS: BLOOD GLUCOSE MONITORING 1 DEV DEV FS SCH ×4 (06:35→20:50)
--- NOTE | 2022-08-16 07:39 | NUR ---
GOT REPORT FROM THE NIGHT NURSE, PT SLEEPING NO SOB .[id number]
[2022-08-16 08:00] VITALS: BP 188/102
[2022-08-16] MEDS: hydrALAZINE 25 MG TAB PO SCH ×3 (08:09→17:59)
[2022-08-16] MEDS: ECOTRIN 81 MG TABEC PO SCH (08:10)
[2022-08-16] MEDS: lisinopriL 20 MG TAB PO SCH (08:10)
[2022-08-16] MEDS: guaiFENesin 600 MG TABER PO SCH ×2 (08:10→20:50)
[2022-08-16] MEDS: carvediloL 12.5 MG TAB PO SCH ×2 (08:11→20:50)
[2022-08-16] MEDS: VIT-B COMP/VIT-C/FOLIC ACID 1 TAB PO SCH (08:11)
[2022-08-16] MEDS: PANTOPRAZOLE 40 MG INJ VIAL IVP SCH (08:12)
[2022-08-16] MEDS: EPOETIN ALFA-EPBX 10,000 UNITS/ML VIAL IV SCH (08:12)
--- NOTE | 2022-08-16 09:00 | NUR ---
PT AWAKE AND RESTING IN BED. AOX4. BLOOD PRESSURE IS HIGH 188/102, MED GIVEN. WILL REASSESS BLOOD PRESSURE AGAIN. ADMINISTERED REST OF 9AM MEDS, TOLERATED WELL.
[2022-08-16] MEDS: hydrALAZINE 20 MG/ML VIAL IVP PRN ×2 (10:04→23:47)
--- NOTE | 2022-08-16 10:10 | NUR ---
REASSESSED PT BLOOD PRESSURE, STILL HIGH 184/106. GIVEN PRN IVPUSH BLOOD PRESSURE MEDICATION. HAD TO REMOVE IV AND START NEW IV ACCESS, 22G IN LEFT FOREARM. WILL REASSESS BLOOD PRESSURE AT 1105.
[2022-08-16 15:44] VITALS: BP 179/97
[2022-08-16] MEDS ORDERED: DEXTROSE 50% 50 ML SYR IVP PRN (15:50)
--- NOTE | 2022-08-16 19:30 | NUR ---
RECEIVED PT IS AWAKE, ALERT AND ORIENTED. AT THE BEDSIDE. DENIES PAIN. NO DISTRESS NOTED. SKIN WARM AND DRY TO TOUCH. SAFETY PRECAUTION IN PLACE, CALL LIGHT IN REACH.
[2022-08-16] MEDS: MICAFUNGIN SODIUM 100 MG in NACL 0.9% 100 ML IV SCH (20:49)
[2022-08-16 23:55] VITALS: BP_SYST 103; BP_SYST 181; BP_DIAS 103; BP_DIAS 97
[2022-08-17 00:47] VITALS: BP 166/98
[2022-08-17 04:00] VITALS: BP 154/70
[2022-08-17] MEDS: BLOOD GLUCOSE MONITORING 1 DEV DEV FS SCH ×4 (06:33→20:26)
--- NOTE | 2022-08-17 06:38 | NUR ---
PATIENT IS ASLEEP. NO ACUTE RESPIRATORY DISTRESS NOTED. ALL NEEDS ATTENDED TO. SAFETY PRECAUTIONS MAINTAINED DURING THE SHIFT, CALL LIGHT IN REACH.
[2022-08-17] MEDS: ACETAMINOPHEN 325 MG TAB PO PRN (07:00)
[2022-08-17 08:00] VITALS: BP 175/99
[2022-08-17] MEDS ORDERED: fentaNYL citrate 0.05 MG/ML VIAL ONE (08:48)
[2022-08-17] MEDS ORDERED: MIDAZOLAM 2 MG/2 ML VIAL ONE (08:49)
[2022-08-17] MEDS: VIT-B COMP/VIT-C/FOLIC ACID 1 TAB PO SCH (09:00)
[2022-08-17] MEDS: carvediloL 12.5 MG TAB PO SCH ×2 (09:00→20:26)
[2022-08-17] MEDS: lisinopriL 20 MG TAB PO SCH (09:00)
[2022-08-17] MEDS: hydrALAZINE 25 MG TAB PO SCH ×3 (09:00→17:56)
[2022-08-17] MEDS: ECOTRIN 81 MG TABEC PO SCH (09:00)
--- NOTE | 2022-08-17 10:34 | NUR ---
PT UNDERWENT ADALID PROCEDURE. CONTINUOUS ORAL SUCTIONING WAS PROVIDED DURING THE PROCEDURE. NO ADVERSE REACTION NOTED. O2 SATURATION NEVER DECREASED BELOW 98% AND HR HELD STEADY AT 74 BEATS PER MINUTE. WILL CONTINUE TO MONITOR PT.
[2022-08-17] MEDS ORDERED: fentaNYL citrate 0.05 MG/ML VIAL IVP ONE (10:45)
[2022-08-17] MEDS ORDERED: MIDAZOLAM 2 MG/2 ML VIAL IVP ONE (10:50)
[2022-08-17] MEDS: PANTOPRAZOLE 40 MG INJ VIAL IVP SCH (10:54)
[2022-08-17 16:00] VITALS: BP 171/97
--- NOTE | 2022-08-17 16:22 | NUR ---
08/17/22 RD FOLLOW UP COMPLETED PLEASE REFER TO NUTRITION ASSESSMENT UNDER CARE ACTIVITY FOR ESTIMATED NUTRITIONAL NEEDS. 1. CONTINUE RENAL, CCHO 60 GM DIET TOLERATED 2. MONITOR GI SYMPTOMS, PO INTAKE, AND NUTRITION RELATED LAB VALUES 3. RD TO FOLLOW-UP 7 DAYS, LOW RISK REVIEWED BY LAURIE BARBOSA RD
[2022-08-17] MEDS: INSULIN LISPRO SLIDING SCALE 100 UNITS/ML VIAL SUBQ PRN ×2 (18:00→20:26)
--- NOTE | 2022-08-17 19:20 | NUR ---
RECEIVED PT IN BED AWAKE, ALERT AND ORIENTED. FAMILY MEMBERS AT THE BEDSIDE. DENIES PAIN. ON BIPAP. NO ACUTE RESPIRATORY DISTRESS. SKIN WARM AND DRY TO TOUCH. BED IN THE LOWEST AND LOCKED POSITION FOR SAFETY, CALL LIGHT IN REACH.
[2022-08-17] MEDS: MICAFUNGIN SODIUM 100 MG in NACL 0.9% 100 ML IV SCH (19:22)
[2022-08-17 19:40] VITALS: BP 199/113
[2022-08-17] MEDS: hydrALAZINE 20 MG/ML VIAL IVP PRN (21:06)
--- NOTE | 2022-08-17 22:15 | NUR ---
PULLED UP IN BED AND MACE COMFORTABLE.
[2022-08-18] VITALS: BP 156/87
--- NOTE | 2022-08-18 00:08 | NUR ---
REPORT GIVEN TO KENIA REGAN FOR CONTINUITY OF CARE. PATIENT IS ASLEEP. NO ACUTE RESPIRATORY DISTRESS.
--- NOTE | 2022-08-18 00:09 | NUR ---
RECEIVED PATIENT FROM CARYL AQUINO FOR CONTINUITY OF CARE. PATIENT SLEEPING , CHEST RISE AND FALL SYMMETRICALLY.
[2022-08-18 05:40] LABS: BASOPHILS % (AUTO) 0.3 % (0.0-2.0); EOSINOPHILS % (AUTO) 0.2 % (0.0-4.0); HEMATOCRIT 23.9 % (36-52); LYMPHOCYTES # (AUTO) 0.9 K/uL (2.0-11.5); LYMPHOCYTES % (AUTO) 7.9 % (20.5-51.1); MEAN CORPUSCULAR HEMOGLOBIN 31 pg (27-31); MEAN CORPUSCULAR HGB CONC 34 g/dL (33-37); MEAN CORPUSCULAR VOLUME 90.8 fL (80-94); MONOCYTES # (AUTO) 0.5 K/uL (0.8-1.0); MONOCYTES % (AUTO) 4.6 % (1.7-9.3); NEUTROPHILS # (AUTO) 9.5 K/uL (1.8-7.7); PLATELET COUNT (AUTO) 265 K/uL (140-450); RED BLOOD CELL COUNT(AUTO) 2.63 MIL/uL (4.20-6.10); RED CELL DISTRIBUTION WIDTH 18.7 % (11.6-13.7); WHITE BLOOD COUNT (AUTO) 10.9 K/uL (4.8-10.8)
[2022-08-18 06:24] LABS: ANION GAP 12.8 (8-16); CARBON DIOXIDE 25.8 mmol/L (21-32); POTASSIUM 4.6 mmol/L (3.5-5.1)
[2022-08-18 06:26] LABS: CREATININE 4.7 mg/dL (0.6-1.3)
[2022-08-18] MEDS: BLOOD GLUCOSE MONITORING 1 DEV DEV FS SCH ×4 (06:49→21:11)
--- NOTE | 2022-08-18 06:49 | NUR ---
BLOOD SUGAR CHECKED WAS 116. NO INSULIN COVERAGE NEEDED.
--- NOTE | 2022-08-18 07:22 | NUR ---
ENDORSED PATIENT TO DAY SHIFT NURSE FOR CONTINUITY OF CARE. NPO POST MIDNIGHT MAINTAINED.
--- NOTE | 2022-08-18 07:30 | NUR ---
RECEIVED REPORT FROM CORRECTIONAL CAPTAIN NURSE FOR CONTINUITY OF CARE, POC DISCUSSED. PT IS RESTING ON 2L NC CONNECTED TO O2 MONITOR READING 100%. PT ARSH FOR PLACEMENT OF TUNNELED HEMODIALYSIS PERACATHETER BY DR HERNANDEZ, CONSENT IN CHART. NO ACUTE S/S OF DISTRESS AT THIS TIME. ALL SAFETY MEASURES CURRENTLY IN PLACE, CALL LIGHT WITHIN REACH.
[2022-08-18 08:00] VITALS: BP 177/99
[2022-08-18] MEDS: hydrALAZINE 25 MG TAB PO SCH ×3 (09:53→16:07)
[2022-08-18] MEDS: VIT-B COMP/VIT-C/FOLIC ACID 1 TAB PO SCH (09:53)
[2022-08-18] MEDS: ECOTRIN 81 MG TABEC PO SCH (09:53)
[2022-08-18] MEDS: carvediloL 12.5 MG TAB PO SCH ×2 (09:54→21:07)
[2022-08-18] MEDS: lisinopriL 20 MG TAB PO SCH (09:54)
[2022-08-18] MEDS: ACETAMINOPHEN 650 MG/20.3 ML UDC PO PRN (09:54)
[2022-08-18] MEDS: PANTOPRAZOLE 40 MG INJ VIAL IVP SCH (09:55)
[2022-08-18] MEDS: EPOETIN ALFA-EPBX 10,000 UNITS/ML VIAL IV SCH (09:55)
--- NOTE | 2022-08-18 10:32 | NUR ---
COVID SWAB OBTAINED AND SENT TO THE LAB FOR CLEARANCE FOR SURGERY. SON AT BEDSIDE, STATED THEIR UNDERSTANDING FOR 1430 TIMES.
--- NOTE | 2022-08-18 12:48 | NUR ---
DIALYSIS NURSE AT BEDSIDE, TOLD DIALYSIS NURSE THE PT HAS A PROCEDURE AT 1430 SCHEDULED FOR PERMCATH PLACEMENT. STATED THE PT NEEDS DIALYSIS TODAY AND HE CAN NOT STAY TILL AFTER THE PROCEDURE. CALLED THE OR, SPOKE WITH DEMETRIO REGARDING THIS AND THE DIALYSIS WILL NOT BE COMPLETED UNTIL 1530. DEMETRIO STATED TO CALL DR HERNANDEZ. DR HERNANDEZ WAS THEN CONTACTED REGARDING THIS CHANGE, STATED HE WILL NOT BE ABLE TO DO THE PROCEDURE IF THAT IS THE CASE. DIALYSIS NURSE CONTACTED CAR TRIMMER AND HE STATED PT NEEDS THE DIALYSIS. NOTIFIED DR HERNANDEZ REGARDING PT NEEDING TO FOLLOW THROUGH WITH THE DIALYSIS. CALLED OR AND NOTIFIED DEMETRIO THAT DR HERNANDEZ SAID HE IS UNABLE TO DO THE PROCEDURE TODAY IF HE NEEDS DIALYSIS AT THIS TIME.
--- NOTE | 2022-08-18 15:20 | NUR ---
DR. HERNANDEZ NOTIFIED DRS PHONE REGARDING PTS PROCEDURE, VOICED DISPLEASURE REGARDING PT RECEIVING DIALYSIS AND STATED HE WILL BE UNABLE TO DO UNTIL SUNDAY. NPO AFTER MIDNIGHT PLACED FOR FOR ANTICIPATION OF UPCOMING PROCEDURE.
[2022-08-18 16:00] VITALS: BP 180/93
[2022-08-18] MEDS: hydrALAZINE 20 MG/ML VIAL IVP PRN (16:08)
--- NOTE | 2022-08-18 16:08 | NUR ---
BLOOD GLUCOSE 117, NO COVERAGE NEEDED AT THIS TIME. BLOOD PRESSURE 192/102, HEART RATE 88. PRN HYDRALAZINE ADMINISTERED. PO MEDICATION ADMINISTERED. DR DANK CONCEPCION AT BEDSIDE, STATED PT CAN HAVE A RENAL DIET SINCE HOLD ON PROCEDURE DUE TO DIALYSIS BEING COMPLETED THIS AM. CALL LIGHT WITHIN REACH, AT BEDSIDE ALL QUESTIONS ANSWERED.
--- NOTE | 2022-08-18 19:25 | NUR ---
PATIENT WELL RESTED IN BED ON 3L O2 VIA NC TOLERATING WELL. NO DISTRESS. BREATHING EVEN UNLABORED. IV SITE ON THE LEFT FOREARM INTACT AND PATENT SALINE LOCK. IRWIN CATHETER DRAINING YELLOW COLORED URINE WITH SEDIMENTS. DENIES PAIN. AT BEDSIDE. CALL LIGHT WITHIN REACH. SAFETY MEASURES IN PLACE. PATIENT APPEARS TO BE WEAK.
[2022-08-18] MEDS: MICAFUNGIN SODIUM 100 MG in NACL 0.9% 100 ML IV SCH (19:47)
--- NOTE | 2022-08-18 21:07 | NUR ---
ADMINISTERED SCHEDULED DUE MEDICATION.
[2022-08-18] MEDS: INSULIN LISPRO SLIDING SCALE 100 UNITS/ML VIAL SUBQ PRN (21:11)
--- NOTE | 2022-08-18 21:11 | NUR ---
CHECKED BLOOD SUGAR WAS 196. ADMINISTERED HUMALOG INSULIN ORDERED PER SLIDING SCALE.
[2022-08-19] VITALS: BP 152/67
[2022-08-19 06:20] LABS: CARBON DIOXIDE 23.7 mmol/L (21-32); POTASSIUM 4.7 mmol/L (3.5-5.1)
[2022-08-19 06:41] LABS: CREATININE 4.4 mg/dL (0.6-1.3)
[2022-08-19] MEDS: BLOOD GLUCOSE MONITORING 1 DEV DEV FS SCH ×4 (06:45→21:00)
[2022-08-19 06:55] LABS: BASOPHILS % (AUTO) 0.4 % (0.0-2.0); EOSINOPHILS % (AUTO) 0.5 % (0.0-4.0); HEMATOCRIT 25.7 % (36-52); HEMOGLOBIN 8.5 g/dL (12.0-18.0); LYMPHOCYTES # (AUTO) 0.8 K/uL (2.0-11.5); LYMPHOCYTES % (AUTO) 8.3 % (20.5-51.1); MEAN CORPUSCULAR HEMOGLOBIN 30 pg (27-31); MEAN CORPUSCULAR HGB CONC 33 g/dL (33-37); MONOCYTES # (AUTO) 0.4 K/uL (0.8-1.0); MONOCYTES % (AUTO) 4.5 % (1.7-9.3); NEUTROPHILS # (AUTO) 8.2 K/uL (1.8-7.7); NEUTROPHILS % (AUTO) 86.3 % (42.2-75.2); PLATELET COUNT (AUTO) 265 K/uL (140-450); RED CELL DISTRIBUTION WIDTH 20.1 % (11.6-13.7); WHITE BLOOD COUNT (AUTO) 9.5 K/uL (4.8-10.8)
--- NOTE | 2022-08-19 07:33 | NUR ---
ENDORSED TO MORNING SHIFT NURSE FOR CONTINUITY OF CARE. AFEBRILE.
[2022-08-19 08:00] VITALS: BP 186/108
[2022-08-19] MEDS: ECOTRIN 81 MG TABEC PO SCH (10:59)
[2022-08-19] MEDS: VIT-B COMP/VIT-C/FOLIC ACID 1 TAB PO SCH (11:00)
[2022-08-19] MEDS: carvediloL 12.5 MG TAB PO SCH ×2 (11:00→21:26)
[2022-08-19] MEDS: lisinopriL 20 MG TAB PO SCH (11:01)
[2022-08-19] MEDS: PANTOPRAZOLE 40 MG INJ VIAL IVP SCH (11:01)
[2022-08-19] MEDS: hydrALAZINE 20 MG/ML VIAL IVP PRN (11:02)
[2022-08-19] MEDS: hydrALAZINE 25 MG TAB PO SCH ×3 (11:10→17:00)
[2022-08-19] MEDS: INSULIN LISPRO SLIDING SCALE 100 UNITS/ML VIAL SUBQ PRN ×2 (12:47→16:42)
[2022-08-19 16:00] VITALS: BP 146/88
--- NOTE | 2022-08-19 19:30 | NUR ---
RECEIVED PT FROM AM NURSE FOR CONTINUITY OF CARE. PY IS STABLE
--- NOTE | 2022-08-19 22:50 | NUR ---
PATIENT REFUSED CT OF HEAD. PATIENT STATED HE IS TIRED AND WILL DO IT IN AM
--- NOTE | 2022-08-20 02:00 | NUR ---
PATIENT ASLEEP,ALL SAFETY MEASURES IN PLACE, NO DISTRESS NOTED
[2022-08-20 04:00] VITALS: BP 132/79
[2022-08-20 06:15] LABS: BASOPHILS % (AUTO) 0.5 % (0.0-2.0); EOSINOPHILS # (AUTO) 0.1 K/uL (0-0.4); EOSINOPHILS % (AUTO) 0.6 % (0.0-4.0); HEMATOCRIT 23.8 % (36-52); HEMOGLOBIN 8.1 g/dL (12.0-18.0); LYMPHOCYTES # (AUTO) 0.9 K/uL (2.0-11.5); MEAN CORPUSCULAR HEMOGLOBIN 31 pg (27-31); MEAN CORPUSCULAR HGB CONC 34 g/dL (33-37); MEAN CORPUSCULAR VOLUME 90.4 fL (80-94); MONOCYTES # (AUTO) 0.5 K/uL (0.8-1.0); MONOCYTES % (AUTO) 6.2 % (1.7-9.3); NEUTROPHILS # (AUTO) 7.4 K/uL (1.8-7.7); PLATELET COUNT (AUTO) 248 K/uL (140-450); RED BLOOD CELL COUNT(AUTO) 2.64 MIL/uL (4.20-6.10); RED CELL DISTRIBUTION WIDTH 19.4 % (11.6-13.7); WHITE BLOOD COUNT (AUTO) 8.9 K/uL (4.8-10.8)
[2022-08-20 06:33] LABS: ANION GAP 13.4 (8-16); CARBON DIOXIDE 24.5 mmol/L (21-32); POTASSIUM 4.9 mmol/L (3.5-5.1)
[2022-08-20] MEDS: INSULIN LISPRO SLIDING SCALE 100 UNITS/ML VIAL SUBQ PRN ×3 (06:37→17:24)
[2022-08-20] MEDS: BLOOD GLUCOSE MONITORING 1 DEV DEV FS SCH ×4 (06:38→20:59)
[2022-08-20 06:55] LABS: CREATININE 5.7 mg/dL (0.6-1.3)
[2022-08-20] MEDS: ACETAMINOPHEN 650 MG/20.3 ML UDC PO PRN ×2 (07:07→20:00)
[2022-08-20 07:24] LABS: LYMPHOCYTES % (AUTO) 9.8 % (20.5-51.1); NEUTROPHILS % (AUTO) 82.9 % (42.2-75.2)
[2022-08-20 08:00] VITALS: BP 175/101
[2022-08-20] MEDS: hydrALAZINE 25 MG TAB PO SCH ×3 (09:10→17:00)
[2022-08-20] MEDS: VIT-B COMP/VIT-C/FOLIC ACID 1 TAB PO SCH (09:11)
[2022-08-20] MEDS: carvediloL 12.5 MG TAB PO SCH ×2 (09:11→21:01)
[2022-08-20] MEDS: lisinopriL 20 MG TAB PO SCH (09:12)
[2022-08-20 16:00] VITALS: BP 168/108
[2022-08-20 18:20] VITALS: BP 150/89
--- NOTE | 2022-08-20 18:21 | NUR ---
Patient pain in head is bothering him. Spouse request blood pressure check. Normal vital signs post hemodialysis two liters out.
--- NOTE | 2022-08-20 19:30 | NUR ---
RECEIVED PT FROM AM NURSE FOR CONTINUITY OF CARE.PT IS STABLE
[2022-08-20] MEDS: hydrALAZINE 20 MG/ML VIAL IVP PRN (20:58)
--- NOTE | 2022-08-20 21:30 | NUR ---
ALL MEDICATIONS GIVEN AT THIS TIME,NO ADVERSE REACTIONS NOTED
[2022-08-21] VITALS: BP 150/89
--- NOTE | 2022-08-21 01:00 | NUR ---
PATIENT ASLEEP,NO DISTRESS NOTED
[2022-08-21] MEDS: ACETAMINOPHEN 650 MG/20.3 ML UDC PO PRN (03:49)
[2022-08-21 06:02] LABS: BASOPHILS % (AUTO) 0.4 % (0.0-2.0); EOSINOPHILS # (AUTO) 0.1 K/uL (0-0.4); HEMOGLOBIN 7.5 g/dL (12.0-18.0); LYMPHOCYTES # (AUTO) 0.8 K/uL (2.0-11.5); LYMPHOCYTES % (AUTO) 10.5 % (20.5-51.1); MEAN CORPUSCULAR HEMOGLOBIN 31 pg (27-31); MEAN CORPUSCULAR HGB CONC 34 g/dL (33-37); MEAN CORPUSCULAR VOLUME 89.8 fL (80-94); MONOCYTES # (AUTO) 0.5 K/uL (0.8-1.0); MONOCYTES % (AUTO) 6.7 % (1.7-9.3); NEUTROPHILS # (AUTO) 6.4 K/uL (1.8-7.7); NEUTROPHILS % (AUTO) 81.4 % (42.2-75.2); PLATELET COUNT (AUTO) 235 K/uL (140-450); RED BLOOD CELL COUNT(AUTO) 2.45 MIL/uL (4.20-6.10); RED CELL DISTRIBUTION WIDTH 19.4 % (11.6-13.7); WHITE BLOOD COUNT (AUTO) 7.8 K/uL (4.8-10.8)
[2022-08-21 06:30] LABS: CARBON DIOXIDE 22.5 mmol/L (21-32); POTASSIUM 4.5 mmol/L (3.5-5.1)
[2022-08-21] MEDS: BLOOD GLUCOSE MONITORING 1 DEV DEV FS SCH ×4 (06:45→20:40)
--- NOTE | 2022-08-21 07:17 | NUR ---
ENDORSED PT TO AM NURSE FOR CONTINUITY OF CARE. PT IS STABLE
[2022-08-21 08:00] VITALS: BP 163/89
[2022-08-21] MEDS: EPOETIN ALFA-EPBX 10,000 UNITS/ML VIAL IV SCH (08:28)
[2022-08-21] MEDS: hydrALAZINE 25 MG TAB PO SCH ×3 (08:29→17:28)
[2022-08-21] MEDS: carvediloL 12.5 MG TAB PO SCH ×2 (08:30→20:37)
[2022-08-21] MEDS: VIT-B COMP/VIT-C/FOLIC ACID 1 TAB PO SCH (08:30)
[2022-08-21] MEDS: lisinopriL 20 MG TAB PO SCH (08:31)
[2022-08-21 08:34] VITALS: BP 163/90
[2022-08-21 10:36] VITALS: BP 204/115
[2022-08-21] MEDS: hydrALAZINE 20 MG/ML VIAL IVP PRN (10:41)
[2022-08-21 16:00] VITALS: BP 198/112
--- NOTE | 2022-08-21 19:25 | NUR ---
PATIENT IN BED AWAKE, ALERT RESTING ON O2 AT 3L NC TOLERATING WELL. NO SOB NOTED. NO COMPLAINTS OF PAIN AT THIS TIME. CALL LIGHT WITHIN REACH. AT BEDSIDE.
--- NOTE | 2022-08-21 20:37 | NUR ---
DUE MEDS GIVEN.
[2022-08-21] MEDS: INSULIN LISPRO SLIDING SCALE 100 UNITS/ML VIAL SUBQ PRN (20:40)
[2022-08-22] VITALS: BP 178/100
[2022-08-22] MEDS: ACETAMINOPHEN 650 MG/20.3 ML UDC PO PRN ×2 (01:49→21:09)
[2022-08-22] MEDS: hydrALAZINE 20 MG/ML VIAL IVP PRN (01:54)
--- NOTE | 2022-08-22 01:54 | NUR ---
PATIENT BP - 180/103 P-77. HYDRALAZINE PRN ADMINISTERED.
[2022-08-22 05:38] LABS: BASOPHILS % (AUTO) 0.6 % (0.0-2.0); EOSINOPHILS % (AUTO) 0.3 % (0.0-4.0); HEMATOCRIT 21.7 % (36-52); HEMOGLOBIN 7.4 g/dL (12.0-18.0); LYMPHOCYTES # (AUTO) 0.8 K/uL (2.0-11.5); LYMPHOCYTES % (AUTO) 10.8 % (20.5-51.1); MEAN CORPUSCULAR HEMOGLOBIN 31 pg (27-31); MEAN CORPUSCULAR HGB CONC 34 g/dL (33-37); MEAN CORPUSCULAR VOLUME 90.8 fL (80-94); MONOCYTES # (AUTO) 0.6 K/uL (0.8-1.0); MONOCYTES % (AUTO) 8.8 % (1.7-9.3); NEUTROPHILS # (AUTO) 5.6 K/uL (1.8-7.7); NEUTROPHILS % (AUTO) 79.5 % (42.2-75.2); PLATELET COUNT (AUTO) 210 K/uL (140-450); RED BLOOD CELL COUNT(AUTO) 2.39 MIL/uL (4.20-6.10); RED CELL DISTRIBUTION WIDTH 19.4 % (11.6-13.7)
[2022-08-22 06:24] LABS: ANION GAP 12.7 (8-16); CARBON DIOXIDE 23.5 mmol/L (21-32); POTASSIUM 4.2 mmol/L (3.5-5.1)
[2022-08-22] MEDS: BLOOD GLUCOSE MONITORING 1 DEV DEV FS SCH ×4 (06:44→20:32)
[2022-08-22 07:17] LABS: CREATININE 4.9 mg/dL (0.6-1.3)
--- NOTE | 2022-08-22 07:28 | NUR ---
ENDORSED PATIENT TO DAY SHIFT NURSE FOR CONTINUITY OF CARE. PT STABLE.
[2022-08-22 08:00] VITALS: BP 142/76
[2022-08-22] MEDS: carvediloL 12.5 MG TAB PO SCH ×2 (09:07→20:29)
[2022-08-22] MEDS: VIT-B COMP/VIT-C/FOLIC ACID 1 TAB PO SCH (09:07)
[2022-08-22] MEDS: hydrALAZINE 25 MG TAB PO SCH ×3 (09:07→17:00)
[2022-08-22] MEDS: lisinopriL 20 MG TAB PO SCH (09:08)
[2022-08-22 11:31] LABS: PROTHROMBIN TIME 11.2 secs (10.8-13.4)
[2022-08-22] MEDS: INSULIN LISPRO SLIDING SCALE 100 UNITS/ML VIAL SUBQ PRN (11:47)
[2022-08-22] MEDS ORDERED: LIDOCAINE/EPI MPF 2%1:200000 10 ML VIAL INJ ONE (13:53)
[2022-08-22] MEDS ORDERED: LIDOCAINE 2% 1000 MG/50 ML VIAL INJ ONE (13:54)
[2022-08-22] MEDS ORDERED: BUPIVACAINE-MPF 0.25% 30 ML VIAL INJ ONE (13:59)
[2022-08-22] MEDS ORDERED: fentaNYL citrate 0.05 MG/ML VIAL ONE (13:59)
[2022-08-22] MEDS ORDERED: MIDAZOLAM 2 MG/2 ML VIAL ONE (14:00)
[2022-08-22] MEDS ORDERED: BUPIVACAINE-MPF/EPI 0.25% 30 ML VIAL INJ ONE (14:25)
[2022-08-22 16:00] VITALS: BP 132/76
--- NOTE | 2022-08-22 19:31 | NUR ---
PATIENT SLEEPING IN BED WITH O2 AT 3L NC. NO SOB. AT BEDSIDE. BED WHEELS LOCK. CALL LIGHT ON EASY REACH.
[2022-08-23] VITALS: BP 147/77
--- NOTE | 2022-08-23 00:35 | NUR ---
DRESSING SOAKED WITH BLOOD, CHANGED ASEPTICALLY.
--- NOTE | 2022-08-23 06:38 | NUR ---
BLOOD SUGAR WAS 119 NO INSULIN COVERAGE NEEDED.
[2022-08-23] MEDS: BLOOD GLUCOSE MONITORING 1 DEV DEV FS SCH ×4 (06:43→21:13)
--- NOTE | 2022-08-23 07:48 | NUR ---
GAVE REPORT TO AM NURSE COLLADO FOR CONTINUITY OF CARE.
[2022-08-23 08:00] VITALS: BP 180/100
[2022-08-23] MEDS: EPOETIN ALFA-EPBX 10,000 UNITS/ML VIAL IV SCH (09:28)
[2022-08-23] MEDS: VIT-B COMP/VIT-C/FOLIC ACID 1 TAB PO SCH (09:29)
[2022-08-23] MEDS: carvediloL 12.5 MG TAB PO SCH ×2 (09:30→21:14)
[2022-08-23] MEDS: hydrALAZINE 25 MG TAB PO SCH ×3 (09:30→17:05)
[2022-08-23] MEDS: lisinopriL 20 MG TAB PO SCH (09:31)
[2022-08-23] MEDS: ACETAMINOPHEN 650 MG/20.3 ML UDC PO PRN ×2 (09:31→21:15)
[2022-08-23] MEDS: INSULIN LISPRO SLIDING SCALE 100 UNITS/ML VIAL SUBQ PRN (12:11)
[2022-08-23 13:54] VITALS: BP 165/90
[2022-08-23 16:00] VITALS: BP 158/91
[2022-08-23 20:00] VITALS: BP 168/93
[2022-08-24] MEDS: hydrALAZINE 20 MG/ML VIAL IVP PRN (04:33)
[2022-08-24] MEDS: BLOOD GLUCOSE MONITORING 1 DEV DEV FS SCH ×3 (07:30→17:13)
[2022-08-24 08:00] VITALS: BP 154/80
[2022-08-24] MEDS: hydrALAZINE 25 MG TAB PO SCH ×3 (08:51→17:03)
[2022-08-24] MEDS: carvediloL 12.5 MG TAB PO SCH (08:52)
[2022-08-24] MEDS: VIT-B COMP/VIT-C/FOLIC ACID 1 TAB PO SCH (08:52)
[2022-08-24] MEDS: lisinopriL 20 MG TAB PO SCH (08:52)
[2022-08-24] MEDS: ACETAMINOPHEN 650 MG/20.3 ML UDC PO PRN (08:52)
[2022-08-24] MEDS ORDERED: CARV25TA2 PO (09:57)
[2022-08-24] MEDS ORDERED: HYDR100T79 PO (09:57)
[2022-08-24] MEDS ORDERED: AMOX-999 PO (09:57)
--- NOTE | 2022-08-24 10:25 | NUR ---
REPORT RECEIVED FROM [facility] JUAN JOSE DAMON FOR CONTINUITY OF CARE. PT A/O X4. RWANDAN SPEAKING. FAMILY AT BEDSIDE. NO SOB OR RESPIRATORY DISTRESS. ON 3L NC. RENAL DIET. LFA #22 SL. ANTONELLA PERMACATH DRESSING WITH SANGUINOUS DRAINAGE. DIALYSIS NURSE CONTACTED AND SHE STATES PERMACATH IS OKAY FOR HD TODAY. INFORMED DR. LONG AND DR LONG ORDER FOR CBC/BMP TODAY. NEEDS ALL MET AT THIS TIME. ALL SAFETY MEASURES IN PLACE. Addendum: 08/24/22 at 1033 by Agency 07 RN RN REPORT RECEIVED FROM [facility] JUAN JOSE DAMON FOR CONTINUITY OF CARE. PT A/O X4. RWANDAN SPEAKING. FAMILY AT BEDSIDE. NO SOB OR RESPIRATORY DISTRESS. ON 3L NC. RENAL DIET. LFA #22 SL. ANTONELLA PERMACATH DRESSING WITH SANGUINOUS DRAINAGE. DIALYSIS NURSE CONTACTED AND SHE STATES PERMACATH IS OKAY FOR HD TODAY. INFORMED DR. LONG AND DR LONG ORDER FOR CBC/BMP TODAY. NEEDS ALL MET AT THIS TIME. ALL SAFETY MEASURES IN PLACE.
[2022-08-24] MEDS ORDERED: EPOETIN ALFA-EPBX 10,000 UNITS/ML VIAL IV SCH (10:30)
[2022-08-24 10:50] LABS: BASOPHILS % (AUTO) 0.7 % (0.0-2.0); EOSINOPHILS % (AUTO) 0.7 % (0.0-4.0); HEMATOCRIT 22.2 % (36-52); HEMOGLOBIN 7.4 g/dL (12.0-18.0); LYMPHOCYTES # (AUTO) 0.7 K/uL (2.0-11.5); LYMPHOCYTES % (AUTO) 10.8 % (20.5-51.1); MEAN CORPUSCULAR HEMOGLOBIN 30 pg (27-31); MEAN CORPUSCULAR HGB CONC 33 g/dL (33-37); MONOCYTES # (AUTO) 0.3 K/uL (0.8-1.0); MONOCYTES % (AUTO) 5.5 % (1.7-9.3); NEUTROPHILS % (AUTO) 82.3 % (42.2-75.2); PLATELET COUNT (AUTO) 199 K/uL (140-450); RED BLOOD CELL COUNT(AUTO) 2.44 MIL/uL (4.20-6.10); RED CELL DISTRIBUTION WIDTH 19.2 % (11.6-13.7); WHITE BLOOD COUNT (AUTO) 6.1 K/uL (4.8-10.8)
[2022-08-24 10:59] LABS: ANION GAP 14.5 (8-16); CARBON DIOXIDE 21.1 mmol/L (21-32); POTASSIUM 4.6 mmol/L (3.5-5.1)
[2022-08-24 11:01] LABS: CREATININE 6.5 mg/dL (0.6-1.3)
--- NOTE | 2022-08-24 11:25 | NUR ---
[facility] RESULTS REPORTED TO DR. GIBSON. ORDER TO "RUN HD AT NA 135".
--- NOTE | 2022-08-24 13:12 | NUR ---
HEMODIALYSIS STARTED AT BEDSIDE.
[2022-08-24] MEDS: INSULIN LISPRO SLIDING SCALE 100 UNITS/ML VIAL SUBQ PRN (13:16)
[2022-08-24 13:33] VITALS: BP 154/80
--- NOTE | 2022-08-24 14:32 | NUR ---
CONTACTED DR. GIBSON REGARDING OUTPATIENT HD SCHEDULE. AWAITING RESPONSE.
--- NOTE | 2022-08-24 15:20 | NUR ---
REPORT GIVEN TO DAY SHIFT NURSECHERI FOR CONTINUITY OF CARE.
--- NOTE | 2022-08-24 15:25 | NUR ---
[facility]CE[facility]. PT IS IN BED, RECEIVING DIALYSIS. DR GIBSON REQUESTS PT HAVE DIALYSIS TOMORROW, CASE MANAGEMENT NOTIFIED.
[2022-08-24 16:00] VITALS: BP 169/99
--- NOTE | 2022-08-24 17:05 | NUR ---
PT DONE RECEIVING DIALYSIS. DIALYSIS NURSE REPORTS 3L REMOVED.
--- NOTE | 2022-08-24 17:30 | NUR ---
DISCHARGE INSTRUCTIONS GIVEN TO PT AND PT FAMILY. MARQUES USED TO TRANSLATE (SAMANTHA, #[id number]). PT AND PT FAMILY WANT TO EAT DINNER BEFORE DISCHARGE. WAITING TO DC IRWIN AND IV UNTIL AFTER DONE EATING.
--- NOTE | 2022-08-24 18:57 | NUR ---
PT FINISHED EATING. FAMILY AT BEDSIDE READY TO TAKE HIM HOME. IRWIN AND IV REMOVED. REINFORCED DISCHARGE INSTRUCTIONS.
== END 2022-08-24 19:15 | disposition home or self-care (01) | DRG 133 ==
LOC: MED 14:38 → MTU 20:52 → MMU 07-16 17:03 → MIC 07-17 12:00 → MTU 07-21 18:25
PROVIDERS: ADMIT Family Medicine; ATTEND Family Medicine
PROC: 02H633Z Insertion of Infusion Device into Right Atrium, Percutaneous Approach (ICD-10-PCS; principal; 2022-07-17)
PROC: B548ZZA Ultrasonography of Superior Vena Cava, Guidance (ICD-10-PCS; 2022-07-17)
PROC: 5A1D70Z Performance of Urinary Filtration, Intermittent, Less than 6 Hours Per Day (ICD-10-PCS; 2022-07-17)
PROC: 5A1D70Z Performance of Urinary Filtration, Intermittent, Less than 6 Hours Per Day (ICD-10-PCS; 2022-07-18)
PROC: 5A09357 Assistance with Respiratory Ventilation, Less than 24 Consecutive Hours, Continuous Positive Airway Pressure (ICD-10-PCS; 2022-07-18)
PROC: 30233N1 Transfusion of Nonautologous Red Blood Cells into Peripheral Vein, Percutaneous Approach (ICD-10-PCS; 2022-07-19)
PROC: 5A1D70Z Performance of Urinary Filtration, Intermittent, Less than 6 Hours Per Day (ICD-10-PCS; 2022-07-19)
PROC: 5A09357 Assistance with Respiratory Ventilation, Less than 24 Consecutive Hours, Continuous Positive Airway Pressure (ICD-10-PCS; 2022-07-19)
PROC: 02PAX3Z Removal of Infusion Device from Heart, External Approach (ICD-10-PCS; 2022-07-20)
PROC: 0JH63XZ Insertion of Tunneled Vascular Access Device into Chest Subcutaneous Tissue and Fascia, Percutaneous Approach (ICD-10-PCS; 2022-07-20)
PROC: 02HV33Z Insertion of Infusion Device into Superior Vena Cava, Percutaneous Approach (ICD-10-PCS; 2022-07-20)
PROC: B518ZZA Fluoroscopy of Superior Vena Cava, Guidance (ICD-10-PCS; 2022-07-20)
PROC: 0DB68ZX Excision of Stomach, Via Natural or Artificial Opening Endoscopic, Diagnostic (ICD-10-PCS; 2022-07-20)
PROC: 5A09357 Assistance with Respiratory Ventilation, Less than 24 Consecutive Hours, Continuous Positive Airway Pressure (ICD-10-PCS; 2022-07-20)
PROC: 5A1D70Z Performance of Urinary Filtration, Intermittent, Less than 6 Hours Per Day (ICD-10-PCS; 2022-07-21)
PROC: 5A09357 Assistance with Respiratory Ventilation, Less than 24 Consecutive Hours, Continuous Positive Airway Pressure (ICD-10-PCS; 2022-07-21)
PROC: 5A1D70Z Performance of Urinary Filtration, Intermittent, Less than 6 Hours Per Day (ICD-10-PCS; 2022-07-22)
PROC: 5A1D70Z Performance of Urinary Filtration, Intermittent, Less than 6 Hours Per Day (ICD-10-PCS; 2022-07-23)
PROC: 0JH63XZ Insertion of Tunneled Vascular Access Device into Chest Subcutaneous Tissue and Fascia, Percutaneous Approach (ICD-10-PCS; 2022-07-24)
PROC: 02H633Z Insertion of Infusion Device into Right Atrium, Percutaneous Approach (ICD-10-PCS; 2022-07-24)
PROC: B518ZZA Fluoroscopy of Superior Vena Cava, Guidance (ICD-10-PCS; 2022-07-24)
PROC: 02PYX3Z Removal of Infusion Device from Great Vessel, External Approach (ICD-10-PCS; 2022-07-24)
PROC: 5A1D70Z Performance of Urinary Filtration, Intermittent, Less than 6 Hours Per Day (ICD-10-PCS; 2022-07-25)
PROC: 5A1D70Z Performance of Urinary Filtration, Intermittent, Less than 6 Hours Per Day (ICD-10-PCS; 2022-07-28)
PROC: 02PAX3Z Removal of Infusion Device from Heart, External Approach (ICD-10-PCS; 2022-07-29)
PROC: 0JPT3XZ Removal of Tunneled Vascular Access Device from Trunk Subcutaneous Tissue and Fascia, Percutaneous Approach (ICD-10-PCS; 2022-07-29)
PROC: 5A1D70Z Performance of Urinary Filtration, Intermittent, Less than 6 Hours Per Day (ICD-10-PCS; 2022-07-29)
PROC: 02H633Z Insertion of Infusion Device into Right Atrium, Percutaneous Approach (ICD-10-PCS; 2022-08-01)
PROC: B548ZZA Ultrasonography of Superior Vena Cava, Guidance (ICD-10-PCS; 2022-08-01)
PROC: 5A1D70Z Performance of Urinary Filtration, Intermittent, Less than 6 Hours Per Day (ICD-10-PCS; 2022-08-01)
PROC: 5A1D70Z Performance of Urinary Filtration, Intermittent, Less than 6 Hours Per Day (ICD-10-PCS; 2022-08-03)
PROC: 5A1D70Z Performance of Urinary Filtration, Intermittent, Less than 6 Hours Per Day (ICD-10-PCS; 2022-08-05)
PROC: 5A1D70Z Performance of Urinary Filtration, Intermittent, Less than 6 Hours Per Day (ICD-10-PCS; 2022-08-07)
PROC: 5A09357 Assistance with Respiratory Ventilation, Less than 24 Consecutive Hours, Continuous Positive Airway Pressure (ICD-10-PCS; 2022-08-07)
PROC: 5A1D70Z Performance of Urinary Filtration, Intermittent, Less than 6 Hours Per Day (ICD-10-PCS; 2022-08-08)
PROC: 5A09357 Assistance with Respiratory Ventilation, Less than 24 Consecutive Hours, Continuous Positive Airway Pressure (ICD-10-PCS; 2022-08-08)
PROC: 5A1D70Z Performance of Urinary Filtration, Intermittent, Less than 6 Hours Per Day (ICD-10-PCS; 2022-08-10)
PROC: 5A1D70Z Performance of Urinary Filtration, Intermittent, Less than 6 Hours Per Day (ICD-10-PCS; 2022-08-11)
PROC: 5A1D70Z Performance of Urinary Filtration, Intermittent, Less than 6 Hours Per Day (ICD-10-PCS; 2022-08-12)
PROC: 5A1D70Z Performance of Urinary Filtration, Intermittent, Less than 6 Hours Per Day (ICD-10-PCS; 2022-08-13)
PROC: 5A1D70Z Performance of Urinary Filtration, Intermittent, Less than 6 Hours Per Day (ICD-10-PCS; 2022-08-14)
PROC: 5A1D70Z Performance of Urinary Filtration, Intermittent, Less than 6 Hours Per Day (ICD-10-PCS; 2022-08-16)
PROC: 5A09357 Assistance with Respiratory Ventilation, Less than 24 Consecutive Hours, Continuous Positive Airway Pressure (ICD-10-PCS; 2022-08-16)
PROC: 5A09357 Assistance with Respiratory Ventilation, Less than 24 Consecutive Hours, Continuous Positive Airway Pressure (ICD-10-PCS; 2022-08-17)
PROC: 5A1D70Z Performance of Urinary Filtration, Intermittent, Less than 6 Hours Per Day (ICD-10-PCS; 2022-08-18)
PROC: 5A1D70Z Performance of Urinary Filtration, Intermittent, Less than 6 Hours Per Day (ICD-10-PCS; 2022-08-20)
PROC: 5A1D70Z Performance of Urinary Filtration, Intermittent, Less than 6 Hours Per Day (ICD-10-PCS; 2022-08-21)
PROC: 02PYX3Z Removal of Infusion Device from Great Vessel, External Approach (ICD-10-PCS; 2022-08-22)
PROC: 0JH63XZ Insertion of Tunneled Vascular Access Device into Chest Subcutaneous Tissue and Fascia, Percutaneous Approach (ICD-10-PCS; 2022-08-22)
PROC: 02HV33Z Insertion of Infusion Device into Superior Vena Cava, Percutaneous Approach (ICD-10-PCS; 2022-08-22)
PROC: B518ZZA Fluoroscopy of Superior Vena Cava, Guidance (ICD-10-PCS; 2022-08-22)
PROC: 5A1D70Z Performance of Urinary Filtration, Intermittent, Less than 6 Hours Per Day (ICD-10-PCS; 2022-08-22)
PROC: 5A1D70Z Performance of Urinary Filtration, Intermittent, Less than 6 Hours Per Day (ICD-10-PCS; 2022-08-24)
DX: J96.01 Acute respiratory failure with hypoxia (principal); N17.0 Acute kidney failure with tubular necrosis; I50.21 Acute systolic (congestive) heart failure; G93.41 Metabolic encephalopathy; B37.7 Candidal sepsis; B49 Unspecified mycosis; D69.6 Thrombocytopenia, unspecified; E87.20 Acidosis, unspecified; I42.9 Cardiomyopathy, unspecified; T80.211A Bloodstream infection due to central venous catheter, initial encounter; J18.9 Pneumonia, unspecified organism; E87.1 Hypo-osmolality and hyponatremia; D63.8 Anemia in other chronic diseases classified elsewhere; E87.5 Hyperkalemia; I34.89 Other nonrheumatic mitral valve disorders; Y84.8 Other medical procedures as the cause of abnormal reaction of the patient, or of later complication, without mention of misadventure at the time of the procedure; Z20.822 Contact with and (suspected) exposure to COVID-19; I13.2 Hypertensive heart and chronic kidney disease with heart failure and with stage 5 chronic kidney disease, or end stage renal disease; N18.6 End stage renal disease; E11.22 Type 2 diabetes mellitus with diabetic chronic kidney disease; Y92.89 Other specified places as the place of occurrence of the external cause
CPT/HCPCS: 36415; 36600; 70450; 71045; 71250; 76700; 76770; 77003; 80048; 80053; 80202; 82272; 82533; 82803; 82948; 83036; 83735; 84100; 84443; 85025; 85610; 85730; 86677; 86702; 86704; 86706; 86708; 86709; 86803; 86886; 86900; 86901; 86920; 87040; 87070; 87081; 87205; 87340; 90935; 93005; 93308; 93313; 94640; 94660; 96361; 96372; 96374; 96375; 99285; C1894; C9113; J0360; J0456; J0610; J1644; J1815; J1885; J1940; J2001; J2060; J2185; J2248; J2250; J2405; J2543; J2704; J3010; J3370; J3490; J7060; J7120; J7613; P9016; Q0092; Q0163; Q5106